=== PATIENT | male | born 1965 | race Caucasian/White ===

== ENCOUNTER 2020-07-02 21:02 | Emergency (ER) | payer OTHER, SELFPAY ==
--- NOTE | ~2020-07-02 | XR_ITS ---
EXAMINATION: XR CHEST CLINICAL INFORMATION: Shortness of breath COMPARISON: 08/28/2019 TECHNIQUE: Frontal view of the chest was obtained. FINDINGS: Normal symmetric lung volumes. No parenchymal consolidation. No pleural effusion. No pneumothorax. Cardiomediastinal silhouette and pulmonary vascularity are within normal limits. No acute osseous abnormalities. XR/XR chest 1V IMPRESSION: Unremarkable examination.
[2020-07-02 21:13] VITALS: BP 146/106; PULSE 73; RESP 16; TEMP 36.8; O2SAT 97; BMI 32.4
--- NOTE | 2020-07-02 21:25 | ECG_ITS ---
Test Reason : SHORTNESS OF BREATH Blood Pressure : / mmHG Vent. Rate : 064 BPM Atrial Rate : 064 BPM P-R Int : 144 ms QRS Dur : 078 ms QT Int : 436 ms P-R-T Axes : 039 -13 043 degrees QTc Int : 449 ms Normal sinus rhythm Normal ECG When compared with ECG of 28-AUG-2019 09:33, No significant change was found Referred By: Elif Llamas Electronically Signed By:ANJANA PRETTY
--- NOTE | 2020-07-02 21:27 | ED_ITS ---
HPI - SOB/Dyspnea General Chief Complaint: Dyspnea Stated Complaint: SOB Time Seen by Provider: 07/02/20 21:24 Source: patient Mode of arrival: ambulatory Limitations: no limitations History of Present Illness HPI Narrative: 54-year-old male walked in with shortness of breath for the past 2 days, symptoms started 2 days ago patient has been tested for COVID-19 result is unknown yet, symptoms is worsening when patient lay supine or with exertion, no other associated symptoms. No chest pain. Patient is a heavy smoker so every now and then he get those symptoms and diagnosed with bronchitis. Related Data Home Medications Medication Instructions Recorded Confirmed fluoxetine 20 mg PO BID 07/02/20 07/02/20 risperidone 3 mg PO DAILY 07/02/20 07/02/20 Previous Rx's Medication Instructions Recorded albuterol sulfate [ProAir HFA] 1 inh INHALATION QID PRN #8.5 g 07/03/20 azithromycin [Zithromax Z-Pineda] 250 mg PO DAILY 5 Days #5 tab 07/03/20 prednisone 20 mg PO BID #10 tab 07/03/20 Allergies Allergy/AdvReac Type Severity Reaction Status Date / Time No Known Allergies Allergy Verified 07/02/20 21:16 [No Known Allergies*] Review of Systems Review of Systems: All other systems are reviewed and are negative Constitutional: Reports as per HPI and Reports no additional constitutional complaints Eyes: Reports as per HPI and Reports no additional eye complaints Reports system reviewed and no additional complaints, except as documented Cardiovascular: Reports as per HPI and Reports no additional cardiovascular complaints Respiratory: Reports as per HPI and Reports no additional respiratory complaints Gastrointestinal: Reports as per HPI and Reports no additional gastrointestinal complaints Genitourinary: Reports no additional female genitourinary complaints Musculoskeletal: Reports no additional musculoskeletal complaints Skin/Breast: Reports system reviewed and no additional complaints, except as docu Psychiatric: Reports no additional psychiatric complaints Endocrine: Reports no additional endocrine complaints Hematologic/Lymphatic: Reports no additional hematologic/lymphatic complaints Allergic/Immunologic: Reports no additional allergic/immunologic complaints Reports system reviewed and no additional complaints, except as documented and Reports Abnormal speech present FOR[facility]LY [facility] Past Medical History Medical History Depression Social History Social History Alcohol intake: never Smoking Status: Current every day smoker Use of substances other than those prescribed or required for medical reasons: No Advance Directives: No Advance Directives Information Provided: No Physical Exam Vital Signs: Vital Signs: Last Vital Signs Temp 98.2 F 07/02/20 22:00 Pulse 75 07/03/20 00:00 Resp 18 07/03/20 00:00 BP 170/92 H 07/03/20 00:00 Pulse Ox 97 07/03/20 00:00 Body Mass Index 32.4 Vital signs have been reviewed as normal and appeared to be correct. Blood pressure in the high range. Heart rate normal. Respiration rate normal. Temperature normal. Oxygen saturation normal. Appearance: Alert. Oriented X3. No acute distress. Head: Normal external exam. Normocephalic. Atraumatic. No Call signs noted. No raccoon eyes noted Eyes: PERRLA. EOMI. Conjunctiva and sclera normal. Eyelids normal. ENT: TM's Normal. Pharynx normal. Uvula midline. Moist mucous membranes. No trismus noted. No drooling noted. No muffled voice noted. Neck: Normal inspection. Neck supple. FROM. No adenopathy. Thyroid Normal. No meningeal signs. No neck mass noted. CVS: Normal heart rate and rhythm. Heart sound normal. No murmurs noted. Pulses normal throughout. Respiratory: No respiratory distress. Painless inspiration. Breath sounds normal. Mild expiratory diffuse wheezes, no rales/rhonchi noted. Chest nontender. No accessory muscle usage noted or decreased air movement noted. Abdomen: Soft and nontender. Bowel sounds normal in all 4 quadrants. No distention noted. No organomegaly noted. No visible injury noted. Back: No CVA tenderness. Full range of motion noted. Skin: Skin warm and dry. Normal skin color. Normal skin turgor. No rashes/lesions/lacerations noted. Extremities: No lower extremity edema. Extremities exhibit normal range of motion. Extremities nontender. Neuro: Oriented X 3. No motor deficit. No sensory deficit. Reflexes normal. Course Course Course Narrative: Assessment and plan. 54-year-old male a smoker 1 pack a day presented with difficulty breathing only a nighttime, his exam revealed very mild wheezing, otherwise chest x-rays negative, COVID screening is negative, cardiac workup was negative . Patient was educated about smoking cessation, will prescribe bronchodilator/Z- Pineda/prednisone. MDM - SOB/Dyspnea Lab Data Attestation: I reviewed the patient's lab results. Result diagrams: 07/02/20 23:25 07/02/20 23:25 Labs: Lab Results 07/02/20 07/02/20 07/02/20 Range/Units 23:25 23:25 23:25 WBC 11.4 H (4.8-10.8) X10*3/uL RBC 4.81 (4.60-5.80) X10*6/uL Hgb 15.4 (14.0-18.0) g/dl Hct 44.8 (42-52) % MCV 93.1 (80-98) fL MCH 32.0 (27.0-33.0) pg MCHC 34.4 (31.0-36.0) g/dl RDW 13.1 (11.0-16.0) % Plt Count 346 (160-400) X10*3/uL MPV 9.8 (9.4-12.4) fL Immature Gran % (Auto) 0.7 H (0.0-0.4) % Neut % (Auto) 72.7 (45-73) % Lymph % (Auto) 16.6 L (20-40) % Whitley % (Auto) 7.5 (2-11) % Eos % (Auto) 1.7 (0-4) % Baso % (Auto) 0.8 (0-2) % Lymph # (Auto) 1.9 (1.2-4.9) X10*3/uL Whitley # (Auto) 0.9 (0.1-1.2) X10*3/uL Eos # (Auto) 0.2 (0.0-0.4) X10*3/uL Baso # (Auto) 0.1 (0.0-0.2) X10*3/uL Abs Immat Gran (auto) 0.08 H (0.00-0.03) X10*3/uL Absolute Neuts (auto) 8.3 (2.0-8.3) X10*3/uL Absolute Nucleated RBC 0.000 (0.0-0.012) X10*3/uL Nucleated RBC % (auto) 0.0 (0.0-0.2) /100WBC Sodium 133 L (135-145) mmol/L Potassium 4.3 (3.3-5.1) mmol/L Chloride 98 (96-108) mmol/L Carbon Dioxide 23 (22-29) mmol/L Anion Gap 16 (12-20) BUN 9 (9-16) mg/dL Creatinine 0.90 (0.5-1.4) mg/dL Estim Creat Clear Calc 101.4 Estimated GFR > 60 Random Glucose 92 (60-115) mg/dL Calcium 9.3 (8.4-10.2) mg/dL Troponin I High Sens 6.3 (<3.5-35.0) ng/L B-Natriuretic Peptide 99 (<100) pg/mL Lipase 37 (8-78) U/L COVID-19 ([facility]) (Negative) COVID-19 Clin Com 07/02/20 Range/Units 23:25 WBC (4.8-10.8) X10*3/uL RBC (4.60-5.80) X10*6/uL Hgb (14.0-18.0) g/dl Hct (42-52) % MCV (80-98) fL MCH (27.0-33.0) pg MCHC (31.0-36.0) g/dl RDW (11.0-16.0) % Plt Count (160-400) X10*3/uL MPV (9.4-12.4) fL Immature Gran % (Auto) (0.0-0.4) % Neut % (Auto) (45-73) % Lymph % (Auto) (20-40) % Whitley % (Auto) (2-11) % Eos % (Auto) (0-4) % Baso % (Auto) (0-2) % Lymph # (Auto) (1.2-4.9) X10*3/uL Whitley # (Auto) (0.1-1.2) X10*3/uL Eos # (Auto) (0.0-0.4) X10*3/uL Baso # (Auto) (0.0-0.2) X10*3/uL Abs Immat Gran (auto) (0.00-0.03) X10*3/uL Absolute Neuts (auto) (2.0-8.3) X10*3/uL Absolute Nucleated RBC (0.0-0.012) X10*3/uL Nucleated RBC % (auto) (0.0-0.2) /100WBC Sodium (135-145) mmol/L Potassium (3.3-5.1) mmol/L Chloride (96-108) mmol/L Carbon Dioxide (22-29) mmol/L Anion Gap (12-20) BUN (9-16) mg/dL Creatinine (0.5-1.4) mg/dL Estim Creat Clear Calc Estimated GFR Random Glucose (60-115) mg/dL Calcium (8.4-10.2) mg/dL Troponin I High Sens (<3.5-35.0) ng/L B-Natriuretic Peptide (<100) pg/mL Lipase (8-78) U/L COVID-19 ([facility]TA) Negative (Negative) COVID-19 Clin Com See Note Imaging Data Chest x-ray: Radiologist's impression: Unremarkable examination. ECG Data Interpretation: Normal sinus rhythm at 65 beats per minute, left axis deviation, normal intervals, no ST-T changes. Discharge Plan Discharge Clinical Impression: Acute bronchitis Qualifiers: Bronchitis organism: unspecified organism Qualified Code(s): J20.9 - Acute bronchitis, unspecified Patient Disposition: Home, Self-Care Instructions: Acute Bronchitis (ED) Prescriptions: New azithromycin [Zithromax Z-Pineda] 250 mg tablet 250 mg PO DAILY 5 Days Qty: 5 RF: 0 prednisone 20 mg tablet 20 mg PO BID Qty: 10 RF: 0 albuterol sulfate [ProAir HFA] 90 mcg/actuation HFA aerosol inhaler 1 inh inhalation QID PRN (Reason: shortness of breath or wheezing) Qty: 8.5 RF: 0 No Action risperidone 3 mg tablet 3 mg PO DAILY RF: 0 fluoxetine 20 mg capsule 20 mg PO BID RF: 0 Referrals: Saray Omalley NP [Primary Care Provider] - 2 days
[2020-07-02 22:00] VITALS: BP 169/109; PULSE 72; RESP 18; TEMP 36.8; O2SAT 93
[2020-07-02 22:57] VITALS: BP 172/98; PULSE 74; RESP 18; O2SAT 97
[2020-07-02 23:49] LABS: MANUAL DIFF FLAG NO
[2020-07-02 23:53] LABS: Basophils Absolute Auto 0.1 X10*3/uL (0.0-0.2); Basophils Percent Auto 0.8 % (0-2); Eosinophils Absolute Auto 0.2 X10*3/uL (0.0-0.4); Eosinophils Percent Auto 1.7 % (0-4); Hematocrit 44.8 % (42-52); Hemoglobin 15.4 g/dl (14.0-18.0); Imm Gran Abs Auto 0.08 X10*3/uL (0.00-0.03); Imm Gran Pct Auto 0.7 % (0.0-0.4); Lymphocytes Absolute Auto 1.9 X10*3/uL (1.2-4.9); Lymphocytes Percent Auto 16.6 % (20-40); Mean Corpuscular HGB Conc 34.4 g/dl (31.0-36.0); Mean Corpuscular Volume 93.1 fL (80-98); Mean Platelet Volume 9.8 fL (9.4-12.4); Monocytes Absolute Auto 0.9 X10*3/uL (0.1-1.2); Monocytes Percent Auto 7.5 % (2-11); Neutrophils Absolute Auto 8.3 X10*3/uL (2.0-8.3); Neutrophils Percent Auto 72.7 % (45-73); Platelet Count 346 X10*3/uL (160-400); Red Blood Count 4.81 X10*6/uL (4.60-5.80); Red Cell Distribution Width 13.1 % (11.0-16.0); White Blood Count 11.4 X10*3/uL (4.8-10.8)
[2020-07-03] VITALS: BP 170/92; PULSE 75; RESP 18; O2SAT 97
[2020-07-03 00:08] LABS: COVID-19 Test Negative (Negative); IDNOW Serial# 9DD0AD1C
[2020-07-03 00:14] LABS: Anion Gap 16 (12-20); Blood Urea Nitrogen 9 mg/dL (9-16); Calcium 9.3 mg/dL (8.4-10.2); Carbon Dioxide 23 mmol/L (22-29); Chloride 98 mmol/L (96-108); Creatinine Clr Calc Pharmacy 101.4; Estimated Glomerular Filt Rate > 60; Glucose Random 92 mg/dL (60-115); Lipase 37 U/L (8-78); Potassium 4.3 mmol/L (3.3-5.1); Sodium 133 mmol/L (135-145)
[2020-07-03 00:20] LABS: B Type Natriuretic Peptide 99 pg/mL (<100); Troponin-I High Sensitivity 6.3 ng/L (<3.5-35.0)
== END 2020-07-03 00:49 | disposition home or self-care (01) ==
PROVIDERS: Emergency Provider Emergency Medicine; PCP Nurse Practitioner Family
DX: J20.9 Acute bronchitis, unspecified (principal); R06.00 Dyspnea, unspecified; Z20.822 Contact with and (suspected) exposure to COVID-19; F17.210 Nicotine dependence, cigarettes, uncomplicated; Z71.6 Tobacco abuse counseling
CPT/HCPCS: 36415; 71045; 80048; 83690; 83880; 84484; 85025; 87635; 93005; 99283; 99284

== ENCOUNTER 2021-05-24 12:35 | Emergency (ER) | payer OTHER, SELFPAY ==
--- NOTE | ~2021-05-24 | XR_ITS ---
EXAMINATION: XR RIBS, RIGHT CLINICAL INFORMATION: Pain COMPARISON: No prior exam available. TECHNIQUE: Chest frontal, 3 oblique views right ribs FINDINGS: RIBS: Mildly displaced right eighth rib fracture. LUNGS AND OLINDA: Both lungs are clear. PLEURA: Normal. Costophrenic angles are sharp, no pneumothorax. HEART: The heart is normal in size. MEDIASTINUM: The mediastinum is within normal limits.. XR/XR ribs RT min 3V w CXR1V IMPRESSION: 1. Mildly displaced right posterior lateral eighth rib fracture. 2. No pneumothorax.
[2021-05-24 14:00] VITALS: BP 183/106; PULSE 90; RESP 18; TEMP 36.4; O2SAT 96; BMI 38.7
--- NOTE | 2021-05-24 14:08 | ED.BACK ---
HPI - Back Pain/Injury General Chief Complaint: Back Pain/Injury Stated Complaint: r side rib pain Time Seen by Provider: 05/24/21 14:06 Source: patient Mode of arrival: ambulatory Limitations: no limitations History of Present Illness HPI Narrative: 55-year-old male presents for 10 days of right lateral chest wall pain. Patient states 10 days ago he was twisting his right arm around to wipe his butt while stooling, and he got a sharp pain under his right arm. States the pain was getting a little better, but today when he had a cough, the pain became much worse. The cough he had was only a few times, he is not sick, no recurrent cough. No chest pain, no shortness of breath. This pain is much worse with movement. No syncope, no fever, no weakness, no numbness, no trouble walking, no incontinence of bowel or bladder, no reduced sensation lower extremities, no saddle paresthesias, no abdominal pain, no nausea vomiting. MD elicited complaint: other (chest wall pain) Pertinent past history: recent trauma Onset (ago): day(s) (10) Timing: progressively worsening Severity: moderate Quality: aching Radiation: none Exacerbating factors: movement Relieving factors: immobilization Context: turning/twisting Associated symptoms: denies other symptoms Work related injury: No Related Data Home Medications Medication Instructions Recorded Confirmed fluoxetine 20 mg capsule 20 mg PO BID 07/02/20 07/02/20 risperidone 3 mg tablet 3 mg PO DAILY 07/02/20 07/02/20 Previous Rx's Medication Instructions Recorded albuterol sulfate 90 mcg/actuation 1 inh INHALATION QID PRN #8.5 g 07/03/20 aerosol inhaler (ProAir HFA) azithromycin 250 mg tablet 250 mg PO DAILY 5 Days #5 tab 07/03/20 (Zithromax Z-Pineda) prednisone 20 mg tablet 20 mg PO BID #10 tab 07/03/20 ibuprofen 800 mg tablet 800 mg PO Q8H 30 Days #90 tab 05/24/21 Allergies Allergy/AdvReac Type Severity Reaction Status Date / Time No Known Allergies Allergy Verified 07/02/20 21:16 [No Known Allergies*] Review of Systems Constitutional: Constitutional: Denies body ache(s), Denies chills, Denies fatigue, Denies fever(s), Denies headache(s), Denies malaise and Denies weakness Eyes: Eyes: Denies diplopia ENT: Denies vertigo, Denies dizziness, Denies otalgia, Denies headache(s), Denies mouth pain, Denies neck pain, Denies post nasal drip, Denies sinus pain, Denies sinus pressure, Denies sore throat and Denies throat swelling Cardiovascular: Cardiovascular: Denies chest pain, Denies syncope, Denies leg edema, Denies lightheadedness, Denies Loss of Consciousness, Denies palpitations and Denies dyspnea Respiratory: Respiratory: Denies chest congestion, Denies cough and Denies dyspnea Gastrointestinal: Gastrointestinal: Denies abdominal pain, Denies hematochezia, Denies constipation, Denies diarrhea and Denies vomiting Musculoskeletal: Musculoskeletal: Denies muscle weakness, Denies neck pain, Denies numbness, Denies radiating pain into limb and Denies tingling Comments: Chest wall pain under her right axilla Integumentary/Breasts: Skin/Breast: Denies erythema and Denies rash Neurologic: Denies confusion, Denies vertigo, Denies dizziness, Denies syncope, Denies headache(s), Denies numbness, Denies tingling and Denies weakness Psychiatric: Psychiatric: Denies anxiety, Denies confusion and Denies depression Endocrine: Endocrine: Denies fatigue and Denies palpitations Allergic/Immunologic: Allergic/Immunologic: Denies throat swelling PMFSH Past Medical History Medical History Depression Social History Social History Alcohol intake: never Patient Tobacco Use Status: Never used Tobacco Use of substances other than those prescribed or required for medical reasons: No Advance Directives: No Advance Directives Information Provided: No Physical Exam Vital Signs: Vital Signs: Last Vital Signs Temp 97.6 F 05/24/21 14:00 Pulse 90 05/24/21 14:00 Resp 18 05/24/21 14:00 BP 183/106 H 05/24/21 14:00 Pulse Ox 96 05/24/21 14:00 BMI result Body Mass Index 38.7 Const: General: No confusion Nutritional Appearance: well nourished Orientation/consciousness: No confusion Limitations: no limitations Eyes: Conjunctivae: conjunctivae normal Pupils: Equal, round and reactive pupils present EOM: EOMs intact bilaterally Neck: Neck: Yes full ROM, Yes no lymphadenopathy and Yes supple Resp: Effort & Inspection: normal respiratory effort and able to speak in complete sentences Auscultation: clear to auscultation bilaterally, no crackles, no rales, no rhonchi and no wheezes Cardio: Rate: regular rate Rhythm: regular rhythm Heart sounds: S1 normal heart sound present and S2 normal heart sound present : General: Yes no CVA tenderness Back/Spine/Pelvis: Back: no CVA tenderness Cervical Spine: normal cervical lordosis, cervical ROM normal, No Cervical spine tenderness and No step off deformity Thoracic/Lumbar Spine: pain with thoraco-lumbar ROM, No paraspinal muscle tenderness, thoraco-lumbar ROM limited, No thoraco-lumbar spasm, No thoracic spinal tenderness, No lumbar spinal tenderness and No straight leg raise positive Pelvis: no pain with anterior-posterior compression Skin: General skin exam: no rashes or lesions noted Neuro: General: No confusion Cranial nerves: Yes Equal, round and reactive pupils present Extrem: General: Yes normal to inspection and Yes full ROM Psych: Appearance: grossly normal Affect: normal affect Attitude: cooperative Thought process: Normal thought process present Course Course Course Narrative: 55-year-old male presents with 10 days of right chest wall pain. Patient states 10 days ago he was twisting and got home under his right arm. Pain was resolving until earlier today, when he coughed, and now has sharp pain under right arm that is worse with movement. On exam, patient is hypertensive, vitals otherwise stable, I cannot reproduce tenderness by palpation. Will get x-ray of chest and ribs, Toradol, Flexeril Reevaluation(s) Reevaluation #1: XR/XR ribs RT min 3V w CXR1V IMPRESSION: 1. Mildly displaced right posterior lateral eighth rib fracture. ? 2. No pneumothorax. Provided incentive spirometer, counseled that is frequent use, discuss the rib fractures can take 6-8 weeks to heal, discussed importance of returning if patient had chest pain or shortness of breath, Discharge Plan Discharge Clinical Impression: Closed rib fracture Qualifiers: Encounter type: initial encounter Rib fracture type: single rib Laterality: right Qualified Code(s): S22.31XA - Fracture of one rib, right side, initial encounter for closed fracture Patient Disposition: Home, Self-Care Instructions: How to Use an Incentive Spirometer (ED), Rib Fracture (ED) Additional Instructions: Call your primary care provider Wednesday morning for follow-up appointment from today's emergency room visit Please use your incentive spirometer, use it 4 times an hour while you are awake for the next week. Please alternate Tylenol and ibuprofen for pain. Take 1 or the other every 4 hours. For example, at midnight take 1000 mg of Tylenol, then at 4:00 a.m. take 800 mg ibuprofen, at 8:00 a.m. take 1000 mg of Tylenol, at noon take 800 mg of ibuprofen, at 4:00 p.m. take 1000 mg of Tylenol, at 8:00 p.m. take 800 mg of ibuprofen. Do not exceed 3000 mg of Tylenol in 24 hours. This method is proven to be as effective as an opioid for pain control. I have prescribed ibuprofen to pharmacy I have provided you with a work now If you have shortness of breath, chest pain, or worsening rib pain, please return to the emergency room Prescriptions: New ibuprofen 800 mg tablet 800 mg PO Q8H 30 Days Qty: 90 RF: 0 No Action risperidone 3 mg tablet 3 mg PO DAILY RF: 0 fluoxetine 20 mg capsule 20 mg PO BID RF: 0 azithromycin [Zithromax Z-Pineda] 250 mg tablet 250 mg PO DAILY 5 Days Qty: 5 RF: 0 prednisone 20 mg tablet 20 mg PO BID Qty: 10 RF: 0 albuterol sulfate [ProAir HFA] 90 mcg/actuation HFA aerosol inhaler 1 inh inhalation QID PRN (Reason: shortness of breath or wheezing) Qty: 8.5 RF: 0 Stand Alone Forms: Work/School Release
[2021-05-24] MEDS: Ketorolac Tromethamine 30 MG/ML VIAL IM (14:39)
[2021-05-24] MEDS: Cyclobenzaprine HCl 10 MG TABLET PO (14:39)
== END 2021-05-24 15:53 | disposition home or self-care (01) ==
PROVIDERS: Emergency Provider Emergency Medicine; PCP Nurse Practitioner Family
DX: S22.31XA Fracture of one rib, right side, initial encounter for closed fracture (principal); R07.81 Pleurodynia; X58.XXXA Exposure to other specified factors, initial encounter; Y93.9 Activity, unspecified; Y92.9 Unspecified place or not applicable; Y99.9 Unspecified external cause status; Z79.899 Other long term (current) drug therapy
CPT/HCPCS: 71101; 96372; 99284; J1885

== ENCOUNTER 2022-10-12 07:44 | Outpatient (REF) | payer BC, MEDICAID, SELFPAY ==
[2022-10-12 11:30] LABS: MANUAL DIFF FLAG NO
[2022-10-12 11:46] LABS: Basophils Absolute Auto 0.1 X10*3/uL (0.0-0.2); Basophils Percent Auto 0.8 % (0-2); Eosinophils Absolute Auto 0.4 X10*3/uL (0.0-0.4); Eosinophils Percent Auto 3.7 % (0-4); Hematocrit 42.6 % (42.0-52.0); Hemoglobin 14.2 g/dl (14.0-18.0); Imm Gran Abs Auto 0.05 X10*3/uL (0.00-0.03); Imm Gran Pct Auto 0.5 % (0.0-0.4); Lymphocytes Absolute Auto 1.9 X10*3/uL (1.2-4.9); Lymphocytes Percent Auto 19.4 % (20-40); Mean Corpuscular HGB Conc 33.3 g/dl (31.0-36.0); Mean Corpuscular Hemoglobin 31.5 pg (27.0-33.0); Mean Corpuscular Volume 94.5 fL (80.0-98.0); Mean Platelet Volume 11.4 fL (9.4-12.4); Monocytes Absolute Auto 0.8 X10*3/uL (0.1-1.2); Monocytes Percent Auto 8.4 % (2-11); Neutrophils Absolute Auto 6.5 x10*3/uL (2.0-8.3); Neutrophils Percent Auto 67.2 % (45-73); Platelet Count 231 X10*3/uL (160-400); Red Blood Count 4.51 X10*6/uL (4.60-5.80); Red Cell Distribution Width 11.9 % (11.0-16.0); White Blood Count 9.6 X10*3/uL (4.8-10.8)
[2022-10-12 12:06] LABS: Alanine Aminotransferase 30 U/L (0-40); Alkaline Phosphatase 53 U/L (39-117); Anion Gap 14 (12-20); Aspartate Amino Transferase 22 U/L (5-37); Bilirubin Total 0.6 mg/dL (0.0-1.0); Blood Urea Nitrogen 17 mg/dL (9-16); Calcium 9.8 mg/dL (8.4-10.2); Carbon Dioxide 25 mmol/L (22-29); Chloride 104 mmol/L (96-108); Cholesterol 213 mg/dL; Estimated Glomerular Filt Rate > 60; Glucose Fasting 94 mg/dL (60-99); HDL Cholesterol 43 mg/dL; LDL Cholesterol Calculated 139 mg/dl; Potassium 4.5 mmol/L (3.3-5.1); Sodium 138 mmol/L (135-145); Total Protein 6.9 g/dL (6.5-8.0); Triglycerides 157 mg/dL
[2022-10-12 12:30] LABS: TSH reflex Free T4 1.23 uIU/mL (0.32-4.0); Vitamin B12 315 pg/mL (200-900)
[2022-10-18 15:49] LABS: Vitamin D 25-OH, D2 <4 ng/mL; Vitamin D 25-OH, D3 20 ng/mL; Vitamin D 25-OH, Total 20 ng/mL (30-100)
== END 2022-10-12 07:45 | disposition home or self-care (01) ==
LOC: HO.HMGCLDS 07:44
PROVIDERS: PCP Internal Medicine; Visit Provider Internal Medicine
DX: F42.9 Obsessive-compulsive disorder, unspecified (principal); F22 Delusional disorders; E66.09 Other obesity due to excess calories; F10.10 Alcohol abuse, uncomplicated; E53.8 Deficiency of other specified B group vitamins; Z72.0 Tobacco use; Z76.89 Persons encountering health services in other specified circumstances
CPT/HCPCS: 36415; 80053; 80061; 82306; 82607; 84443; 85025

== ENCOUNTER 2023-01-08 09:32 | Outpatient (AMB) | payer BC, SELFPAY ==
--- NOTE | 2023-01-08 09:39 | A.OFFPC_ITS ---
Vital Signs 01/08/23 09:40 Height 5 ft 6 in Weight 251 lb 2 oz BMI 40.5 BP 130/78 Blood Pressure Location Lt brachial Position Sitting Pulse 85 Pulse Source Pulse Oximeter Pulse Oximetry (%) 95 Oxygen Delivery Method Room Air Intake Visit Reasons: 3 month follow up Allergies No Known Allergies [No Known Allergies*] Allergy (Verified 01/08/23 09:40) Medication List - Last Reconciled 01/08/23 by Jai Beltran MD fluoxetine 20 mg PO BID 90 days risperidone 3 mg PO DAILY Tobacco use date assessed: 01/08/23 Dental Screening Dental Screen Date: 01/08/23 Did you have a dental visit in the last 12 months?: No Did you have a dental problem in the last 6 months where you did not have access to dental care?: No Was dental information given to patient?: No HPI 3 month follow up HPI Details Patient is 87-year-old gentleman came in today for his regular follow- up appointment Patient have a psychiatric illness he is now seeing a psych med prescriber and taking fluoxetine 20 mg b.i.d. and risperidone 3 mg through them. Last time he had labs done his vitamin-D level was low I have sent supplement patient is to start taking 1 daily for 6 months. He said that he has done colo guard test but I could not find the report in the chart we will look for that. Continued to smoke 2 pack per day patient says that his previous primary care has tried to help him but he just done 1 a stop at this time He has stop drinking alcohol but now he is drinking a lot of coffee. Patient is concerned about his weight and he is eating habits. I will be working appointment with a dietitian so we can provide him with the proper information. He will return in 6 month to have a follow-up on tobacco and weight. [facility] Medical History Depression Social History Housing: Condominium Alcohol intake: never Patient Tobacco Use Status: Current everyday Tobacco user Cigarette Packs Per Day: 1 Cigarettes Per Day: 20 e-Cigarette/Vaping Use: Never Used service: No Current occupational status: employed Current occupation: [employer] Cognitive needs: No Hearing needs: No Vision needs: No Questionnaire PHQ-9 Over the last 2 weeks, how often have you been bothered by any of the following problems? 1. Little interest or pleasure in doing things: not at all 2. Feeling down, depressed, or hopeless: not at all 3. Trouble falling or staying asleep, or sleeping too much: several days 4. Feeling tired or having little energy: not at all 5. Poor appetite or overeating: nearly every day 6. Feeling bad about yourself - or that you are a failure or have let yourself or your family down: not at all 7. Trouble concentrating on things, such as reading the newspaper or watching television: not at all 8. Moving or speaking so slowly that other people could have noticed. Or the opposite - being so fidgety or restless that you have been moving around a lot more than usual: not at all 9. Thoughts that you would be better off or of hurting yourself in some way: not at all Total score: 4 Depression Screening Interpretation: Negative 43562 - PHQ-9 Billing: Yes Source: Developed by Drs. Miguel Luis, Angelica Mark, Du Villa and colleagues, with an educational mirlande from [employer]. Thrive Questionnaire Date Thrive assessed: 01/08/23 I am a: Patient What is your living situation today?: I have a steady place to live Within the past 12 months, did the food you bought not last and you didn't have the money to get more?: Never true Within the past 12 months, did you worry whether your food would run out before you got money to buy more?: Never true Do you have trouble paying for medicines?: No Do you have trouble getting transportation to medical appointments?: No Do you have trouble paying your heating and electricity bill?: No Do you have trouble taking care of your child, family member or friend?: No Do you have trouble with day-to-day activities such as bathing, preparing meals, shopping, managing finances, etc.?: Yes Are you currently unemployed and looking for a job?: No Are you interested in more education?: No AUDIT C Alcohol Use Questionnaire (AUDIT-C) 1. How often do you have a drink containing alcohol?: Never 3. How often do you have six or more drinks on one occasion?: Never Total Score: 0 Score Reviewed/Action Taken: Yes MIKY-7 AMB Questionnaire MIKY-7 Date MIKY - 7 assessed: 01/08/23 Feeling nervous, anxious, or on edge: 0 = Not at all Not being able to stop or control worryin = Not at all Worrying too much about different things: 0 = Not at all Trouble relaxin = Several days Being so restless that it is hard to sit still: 0 = Not at all Becoming easily annoyed or irritable: 0 = Not at all Feeling afraid as if something awful might happen: 0 = Not at all Total MIKY-7 score (0-4 normal; 5-9 mild; 10-14 moderate; 15-21 severe): 1 Source: Developed by Drs. Miguel Luis, Angelica Mark, Du Villa and colleagues, with an educational mirlande from [employer]. MIKY-7 Assessment Billing MIKY-7 Assessment Tool: MIKY-7 Assessment 68867 Review of Systems Const Denies chills and Denies fever(s) ENT Denies epistaxis and Denies nasal discharge Card Denies chest pain Resp Denies chest congestion, Denies cough and Denies hemoptysis GI Denies diarrhea and Denies nausea Skin/Breast Denies rash Neuro Reports no additional complaints Psych Reports no additional complaints Endo Reports no additional complaints Physical exam (Primary Care) Vital Signs: Last Vital Signs Pulse 85 01/08/23 09:40 BP 130/78 01/08/23 09:40 Pulse Ox 95 01/08/23 09:40 Oxygen Delivery Method Room Air 01/08/23 09:40 BMI result Body Mass Index 40.5 Tobacco/Smoking Status: Tobacco use Status Tobacco use date assessed 01/08/23 01/08/23 09:41 Patient Tobacco Use Status Current everyday Tobacco 01/08/23 09:41 e-Cigarette/Vaping Use Never Used 01/08/23 09:41 PHQ-9: PHQ-9 Score PHQ-9: Total score 4 01/08/23 09:59 Depression Screening Interpretation: Negative Thrive Assessment: Date of Thrive Assessment Date Thrive assessed 01/08/23 01/08/23 09:59 Const General: cooperative, comfortable and no acute distress Orientation/consciousness: patient oriented x3 HENMT Head: Yes normocephalic Eyes General: appearance normal, both eyes and all related structures Neck Neck: Yes supple Resp Effort & Inspection: normal respiratory effort, no cough and no stridor Cardio Rhythm: regular rhythm Heart sounds: S1 normal heart sound present and S2 normal heart sound present Skin General skin exam: turgor normal Neuro General: patient oriented x3, tone normal and moves all extremities Extrem Right lower extremity: no edema Left lower extremity: no edema Assessment and Plan Assessment & Plan (1) Morbid obesity due to excess calories: Code(s): E66.01 - Morbid (severe) obesity due to excess calories (2) Tobacco abuse: Code(s): Z72.0 - Tobacco use (3) OCD (obsessive compulsive disorder): Code(s): F42.9 - Obsessive-compulsive disorder, unspecified (4) Paranoid disorder: Code(s): F22 - Delusional disorders (5) Vitamin D deficiency: Code(s): E55.9 - Vitamin D deficiency, unspecified Plan Patient is 87-year-old gentleman came in today for his regular follow-up appointment Patient have a psychiatric illness he is now seeing a psych med prescriber and t aking fluoxetine 20 mg b.i.d. and risperidone 3 mg through them. Last time he had labs done his vitamin-D level was low I have sent supplement patient is to start taking 1 daily for 6 months. He said that he has done colo guard test but I could not find the report in the chart we will look for that. Continued to smoke 2 pack per day patient says that his previous primary care has tried to help him but he just done 1 a stop at this time He has stop drinking alcohol but now he is drinking a lot of coffee. Patient is concerned about his weight and he is eating habits. I will be working appointment with a dietitian so we can provide him with the proper information. He will return in 6 month to have a follow-up on tobacco and weight. Medications: New cholecalciferol (vitamin D3) 25 mcg PO DAILY 90 caps 0RF 90 days Coding Level of Care Code Est Pt Level 3 (90139) Diagnoses Morbid obesity due to excess calories E66.01 Tobacco abuse Z72.0 OCD (obsessive compulsive disorder) F42.9 Paranoid disorder F22 Vitamin D deficiency E55.9 Additional Codes MIKY-7 Assessment Billing - MIKY-7 Assessment Tool: MIKY-7 Assessment 00462 ([id number])
[2023-01-08 09:40] VITALS: BP 130/78; PULSE 85; O2SAT 95; BMI 40.5
== END 2023-01-08 09:50 | disposition home or self-care (01) ==
PROVIDERS: Visit Provider Internal Medicine
DX: F42.9 Obsessive-compulsive disorder, unspecified (principal); E66.01 Morbid (severe) obesity due to excess calories; F22 Delusional disorders; Z68.41 Body mass index [BMI] 40.0-44.9, adult; E55.9 Vitamin D deficiency, unspecified; Z72.0 Tobacco use
CPT/HCPCS: 99213

== ENCOUNTER 2023-06-04 08:27 | Outpatient (AMB) | payer BC, SELFPAY ==
[2023-06-04 08:29] VITALS: BP 128/80; PULSE 80; O2SAT 98; BMI 37.9
--- NOTE | 2023-06-04 08:29 | A.OFFPC_ITS ---
Vital Signs 06/04/23 08:29 Height 5 ft 6 in Weight 235 lb BMI 37.9 BP 128/80 Blood Pressure Location Lt brachial Position Sitting Pulse 80 Pulse Source Pulse Oximeter Pulse Oximetry (%) 98 Oxygen Delivery Method Room Air Intake Visit Reasons: concerns of athletes foot Allergies No Known Allergies [No Known Allergies*] Allergy (Verified 06/04/23 08:30) Medication List - Last Reconciled 06/04/23 by Jai Beltran MD cholecalciferol (vitamin D3) 25 mcg PO DAILY 90 days fluoxetine 20 mg PO BID 90 days risperidone 3 mg PO DAILY Tobacco use date assessed: 06/04/23 Dental Screening Dental Screen Date: 06/04/23 Did you have a dental visit in the last 12 months?: No Did you have a dental problem in the last 6 months where you did not have access to dental care?: No Was dental information given to patient?: Patient has dentist HPI concerns of athletes foot HPI Details Patient is a 57-year-old gentleman with a history of delusional disorder, obesity with BMI of 37.9 Came in today to be evaluated for infection on his feet Patient says that it has gotten worse for the past 7 days On examination it seems as if patient have chronic tinea pedis He has developed erythema redness and excoriation of skin I am treating him with Augmentin b.i.d. for 7 days And terbinafine 250 mg once a day for 7 days Patient is to return in 7 days for re-evaluation [facility] Medical History Depression Social History Housing: Condominium Alcohol intake: never Patient Tobacco Use Status: Current everyday Tobacco user Cigarette Packs Per Day: 1 Cigarettes Per Day: 20 e-Cigarette/Vaping Use: Never Used service: No Current occupational status: employed Current occupation: [employer] Cognitive needs: No Hearing needs: No Vision needs: No Questionnaire PHQ-9 Over the last 2 weeks, how often have you been bothered by any of the following problems? 1. Little interest or pleasure in doing things: not at all 2. Feeling down, depressed, or hopeless: not at all 3. Trouble falling or staying asleep, or sleeping too much: not at all 4. Feeling tired or having little energy: not at all 5. Poor appetite or overeating: not at all 6. Feeling bad about yourself - or that you are a failure or have let yourself or your family down: not at all 7. Trouble concentrating on things, such as reading the newspaper or watching television: not at all 9. Thoughts that you would be better off or of hurting yourself in some way: not at all Depression Screening Interpretation: Negative Depression Screening Done: Yes 28921 - PHQ-9 Billing: Yes Source: Developed by Drs. Miguel Luis, Angelica Mark, Du Villa and colleagues, with an educational mirlande from [employer] Thrive Questionnaire Date Thrive assessed: 06/04/23 I am a: Patient What is your living situation today?: I have a steady place to live Within the past 12 months, did the food you bought not last and you didn't have the money to get more?: Sometimes True Within the past 12 months, did you worry whether your food would run out before you got money to buy more?: Never true Do you have trouble paying for medicines?: Yes Do you have trouble getting transportation to medical appointments?: No Do you have trouble paying your heating and electricity bill?: No Do you have trouble taking care of your child, family member or friend?: No Do you have trouble with day-to-day activities such as bathing, preparing meals, shopping, managing finances, etc.?: No Are you currently unemployed and looking for a job?: No Are you interested in more education?: No Please select the resources that you would like help with: None Currently or been in a relationship where the following occur: no concerns reported AUDIT C Alcohol Use Questionnaire (AUDIT-C) 1. How often do you have a drink containing alcohol?: Monthly or less 2. How many drinks containing alcohol do you have on a typical day when you are drinking?: 1 or 2 3. How often do you have six or more drinks on one occasion?: Never Total Score: 1 Score Reviewed/Action Taken: Yes MIKY-7 AMB Questionnaire MIKY-7 Date MIKY - 7 assessed: 06/04/23 Feeling nervous, anxious, or on edge: 0 = Not at all Not being able to stop or control worryin = Not at all Worrying too much about different things: 0 = Not at all Trouble relaxin = Not at all Being so restless that it is hard to sit still: 0 = Not at all Becoming easily annoyed or irritable: 0 = Not at all Feeling afraid as if something awful might happen: 0 = Not at all Total MIKY-7 score (0-4 normal; 5-9 mild; 10-14 moderate; 15-21 severe): 0 Source: Developed by Drs. Miguel Luis, Angelica Mark, Du Villa and colleagues, with an educational mirlande from [employer] MIKY-7 Assessment Billing MIKY-7 Assessment Tool: MIKY-7 Assessment 94669 Review of Systems Const Denies chills and Denies fever(s) ENT Denies epistaxis and Denies nasal discharge Card Denies chest pain Resp Denies chest congestion, Denies cough and Denies hemoptysis GI Denies diarrhea and Denies nausea Skin/Breast Denies rash Neuro Reports no additional complaints Psych Reports no additional complaints Endo Reports no additional complaints Physical exam (Primary Care) Vital Signs: Last Vital Signs Pulse 80 06/04/23 08:29 BP 128/80 06/04/23 08:29 Pulse Ox 98 06/04/23 08:29 Oxygen Delivery Method Room Air 06/04/23 08:29 BMI result Body Mass Index 37.9 Tobacco/Smoking Status: Tobacco use Status Tobacco use date assessed 06/04/23 06/04/23 08:33 Patient Tobacco Use Status Current everyday Tobacco 06/04/23 08:33 e-Cigarette/Vaping Use Never Used 06/04/23 08:33 Depression Screening Interpretation: Negative Thrive Assessment: Date of Thrive Assessment Date Thrive assessed 06/04/23 06/04/23 09:04 Currently or been in a relationship where the following occur: no concerns reported Const General: cooperative, comfortable and no acute distress Orientation/consciousness: patient oriented x3 HENMT Head: Yes normocephalic Eyes General: appearance normal, both eyes and all related structures Neck Neck: Yes supple Resp Effort & Inspection: normal respiratory effort, no cough and no stridor Cardio Rhythm: regular rhythm Heart sounds: S1 normal heart sound present and S2 normal heart sound present Skin General skin exam: turgor normal Neuro General: patient oriented x3, tone normal and moves all extremities Extrem Other: Discolored deformed toenails both feet with extensive tenia pedis and erythema especially dorsum of both feet Assessment and Plan Assessment & Plan (1) Tinea pedis: Code(s): B35.3 - Tinea pedis Qualifiers: Laterality: bilateral Qualified Code(s): B35.3 - Tinea pedis (2) Cellulitis of both feet: Code(s): L03.115 - Cellulitis of right lower limb; L03.116 - Cellulitis of left lower limb (3) Obesity due to excess calories: Code(s): E66.09 - Other obesity due to excess calories Qualifiers: Body mass index: BMI 37.0-37.9 Obesity classification: adult class 2 (BMI 35 - 39.9) Serious obesity comorbidity presence: without serious comorbidity Qualified Code(s): E66.09 - Other obesity due to excess calories; Z68.37 - Body mass index [BMI] 37.0-37.9, adult (4) Paranoid disorder: Code(s): F22 - Delusional disorders (5) OCD (obsessive compulsive disorder): Code(s): F42.9 - Obsessive-compulsive disorder, unspecified Qualifiers: Obsessive-compulsive disorder type: unspecified Qualified Code(s): F42.9 - Obsessive-compulsive disorder, unspecified Plan Patient is a 57-year-old gentleman with a history of delusional disorder, obesity with BMI of 37.9 Came in today to be evaluated for infection on his feet Patient says that it has gotten worse for the past 7 days On examination it seems as if patient have chronic tinea pedis He has developed erythema redness and excoriation of skin I am treating him with Augmentin b.i.d. for 7 days And terbinafine 250 mg once a day for 7 days Patient is to return in 7 days for re-evaluation Medications: New terbinafine HCl 250 mg PO DAILY 7 tabs 0RF 7 days amoxicillin-pot clavulanate 875-125 mg 1 tab PO BID 14 tabs 0RF 7 days Coding Level of Care Code Est Pt Level 4 (18457) Diagnoses Tinea pedis of both feet B35.3 Laterality: bilateral Cellulitis of both feet L03.115; L03.116 Class 2 obesity due to excess calories without serious comorbidity with body mass index (BMI) of 37.0 to 37.9 in adult E66.09; Z68.37 Body mass index: BMI 37.0-37.9 Obesity classification: adult class 2 (BMI 35 - 39.9) Serious obesity comorbidity presence: without serious comorbidity Paranoid disorder F22 Obsessive-compulsive disorder, unspecified type F42.9 Obsessive-compulsive disorder type: unspecified Additional Codes MIKY-7 Assessment Billing - MIKY-7 Assessment Tool: MIKY-7 Assessment 48773 ([id number])
== END 2023-06-04 08:56 | disposition home or self-care (01) ==
PROVIDERS: PCP Internal Medicine; Visit Provider Internal Medicine
DX: B35.3 Tinea pedis (principal); L03.115 Cellulitis of right lower limb; F22 Delusional disorders; L03.116 Cellulitis of left lower limb; E66.09 Other obesity due to excess calories; Z68.37 Body mass index [BMI] 37.0-37.9, adult; F42.9 Obsessive-compulsive disorder, unspecified
CPT/HCPCS: 99214

== ENCOUNTER 2023-06-09 12:53 | Outpatient (AMB) | payer BC, SELFPAY ==
[2023-06-09 12:59] VITALS: PULSE 91; O2SAT 96; BMI 37.8
--- NOTE | 2023-06-09 12:59 | A.OFFPC_ITS ---
Vital Signs 06/09/23 12:59 Height 5 ft 6 in Weight 234 lb 8 oz BMI 37.8 Pulse 91 Pulse Source Pulse Oximeter Pulse Oximetry (%) 96 Oxygen Delivery Method Room Air Intake Visit Reasons: 1 WK F/U concerns of athletes foot Allergies No Known Allergies [No Known Allergies*] Allergy (Verified 06/09/23 12:59) Medication List - Last Reconciled 06/09/23 by Jai Beltran MD amoxicillin-pot clavulanate 875-125 mg 1 tab PO BID 7 days cholecalciferol (vitamin D3) 25 mcg PO DAILY 90 days fluoxetine 20 mg PO BID 90 days risperidone 3 mg PO DAILY terbinafine HCl 250 mg PO DAILY 7 days Tobacco use date assessed: 06/09/23 Dental Screening Dental Screen Date: 06/09/23 Did you have a dental visit in the last 12 months?: No Did you have a dental problem in the last 6 months where you did not have access to dental care?: No Was dental information given to patient?: No HPI 1 WK F/U concerns of athletes foot HPI Details Patient is a 57-year-old gentleman came in today to be evaluated for cellulitis both feet and tinea pedis Patient was treated with Augmentin and terbinafine for 7 days His infection has improved, skin has dried out, however continued to have erythema Patient will need 10 more days of treatment at least. This time I have sent doxycycline and terbinafine Patient has developed itching at the end of the treatment, so I have refrain from sending Augmentin Follow-up 10 days [facility] Medical History Depression Social History Housing: Condominium Alcohol intake: never Patient Tobacco Use Status: Current everyday Tobacco user Cigarette Packs Per Day: 1 Cigarettes Per Day: 20 e-Cigarette/Vaping Use: Never Used service: No Current occupational status: employed Current occupation: [employer] Cognitive needs: No Hearing needs: No Vision needs: No Questionnaire PHQ-9 Over the last 2 weeks, how often have you been bothered by any of the following problems? Depression Screening Interpretation: Negative Depression Screening Done: Yes Source: Developed by Drs. Miguel Luis, Angelica B.WDu Mckenna and colleagues, with an educational mirlande from [employer]. Thrive Questionnaire Date Thrive assessed: 06/04/23 Currently or been in a relationship where the following occur: no concerns reported MIKY-7 AMB Questionnaire MIKY-7 Date MIKY - 7 assessed: 06/04/23 Source: Developed by Drs. Miguel Luis, Du Ramirez and colleagues, with an educational mirlande from [employer]. Review of Systems Const Denies chills and Denies fever(s) ENT Denies epistaxis and Denies nasal discharge Card Denies chest pain Resp Denies chest congestion, Denies cough and Denies hemoptysis GI Denies diarrhea and Denies nausea Skin/Breast Denies rash Neuro Reports no additional complaints Psych Reports no additional complaints Endo Reports no additional complaints Physical exam (Primary Care) Vital Signs: Last Vital Signs Pulse 91 06/09/23 12:59 Pulse Ox 96 06/09/23 12:59 Oxygen Delivery Method Room Air 06/09/23 12:59 BMI result Body Mass Index 37.8 Tobacco/Smoking Status: Tobacco use Status Tobacco use date assessed 06/09/23 06/09/23 13:01 Patient Tobacco Use Status Current everyday Tobacco 06/09/23 13:01 e-Cigarette/Vaping Use Never Used 06/09/23 13:01 Depression Screening Interpretation: Negative Thrive Assessment: Date of Thrive Assessment Date Thrive assessed 06/04/23 06/09/23 13:01 Currently or been in a relationship where the following occur: no concerns reported Const General: cooperative, comfortable and no acute distress Orientation/consciousness: patient oriented x3 [facility] Head: Yes normocephalic Eyes General: appearance normal, both eyes and all related structures Neck Neck: Yes supple Resp Effort & Inspection: normal respiratory effort, no cough and no stridor Cardio Rhythm: regular rhythm Heart sounds: S1 normal heart sound present and S2 normal heart sound present Skin General skin exam: turgor normal Neuro General: patient oriented x3, tone normal and moves all extremities Extrem Other: Discolored deformed toenails both feet with extensive tenia pedis and erythema especially dorsum of both feet Assessment and Plan Assessment & Plan (1) Tinea pedis: Code(s): B35.3 - Tinea pedis Qualifiers: Laterality: bilateral Qualified Code(s): B35.3 - Tinea pedis (2) Cellulitis of both feet: Code(s): L03.115 - Cellulitis of right lower limb; L03.116 - Cellulitis of left lower limb Plan Patient is a 57-year-old gentleman came in today to be evaluated for cellulitis both feet and tinea pedis Patient was treated with Augmentin and terbinafine for 7 days His infection has improved, skin has dried out, however continued to have erythema Patient will need 10 more days of treatment at least. This time I have sent doxycycline and terbinafine Patient has developed itching at the end of the treatment, so I have refrain from sending Augmentin Follow-up 10 days Medications: New doxycycline hyclate 100 mg PO BID 20 caps 0RF 10 days Changed From terbinafine HCl 250 mg PO DAILY 7 days 7 tabs 0RF To terbinafine HCl 250 mg PO DAILY 10 tabs 0RF 10 days Discontinued amoxicillin-pot clavulanate 875-125 mg Discontinued Reason: Doctor's Order 1 tab PO BID 7 days 14 tabs 0RF Coding Level of Care Code Est Pt Level 3 (73564) Diagnoses Tinea pedis of both feet B35.3 Laterality: bilateral Cellulitis of both feet L03.115; L03.116
== END 2023-06-09 13:23 | disposition home or self-care (01) ==
PROVIDERS: PCP Internal Medicine; Visit Provider Internal Medicine
DX: B35.3 Tinea pedis (principal); L03.115 Cellulitis of right lower limb; L03.116 Cellulitis of left lower limb
CPT/HCPCS: 99213

== ENCOUNTER 2023-06-22 08:03 | Outpatient (AMB) | payer BC, SELFPAY ==
--- NOTE | 2023-06-22 08:06 | MHC.OFFWIV ---
Intake Vital Signs 06/22/23 08:07 Height 5 ft 6 in Weight 234 lb BMI 37.8 BP 120/68 Blood Pressure Location Lt brachial Position Sitting Pulse 106 H Pulse Source Pulse Oximeter Temp 98.0 F Temp Source Oral Pulse Oximetry (%) 96 Intake Visit Reasons: EP Stomach pain/dizzy/Bloated Intake Note: pt is here for c/o stomach pain, feels bloated and unable to have a bowel movemnt since wednesday Patient Tobacco Use Status: Current everyday Tobacco user Allergies No Known Allergies [No Known Allergies*] Allergy (Verified 06/22/23 08:29) Medication List - Last Reconciled 06/22/23 by López Birmingham MD fluoxetine 20 mg PO BID 90 days risperidone 3 mg PO DAILY Do you need a note to return to daycare/school/sports/work: Yes HPI EP Stomach pain/dizzy/Bloated HPI Details 57-year-old male presents to the office for a sick visit. Patient reports he started having a cough a few days ago. Symptoms lasted for 48 hours and subsided. This was followed by nausea, headache. Smokes a pack a day. [facility] Medical History Depression Social History Housing: Condominium Alcohol intake: never Patient Tobacco Use Status: Current everyday Tobacco user Cigarette Packs Per Day: 1 Cigarettes Per Day: 20 e-Cigarette/Vaping Use: Never Used service: No Current occupational status: employed Current occupation: [employer] Cognitive needs: No Hearing needs: No Vision needs: No Physical Exam Vital Signs: Last Vital Signs Temp 98.0 F 06/22/23 08:07 Pulse 106 H 06/22/23 08:07 BP 120/68 06/22/23 08:07 Pulse Ox 96 06/22/23 08:07 BMI result Body Mass Index 37.8 Const General: cooperative and healthy appearing Nutritional Appearance: well nourished Orientation/consciousness: patient oriented x3 Limitations: no limitations HEENT Head: Yes normal to inspection Eyes General: appearance normal, both eyes and all related structures Neck Neck: Yes normal visual inspection Chest Chest palpation & inspection: normal palpation of entire chest wall Resp Effort & Inspection: normal respiratory effort Neuro General: patient oriented x3 Assessment & Plan Assessment & Plan (1) Upper respiratory tract infection: Code(s): J06.9 - Acute upper respiratory infection, unspecified Plan: Viral etiology. No antibiotics needed. PPI ordered. Viral swab ordered. Will call with the results Coding Level of Care Code Est Pt Level 3 (17623) Diagnoses Upper respiratory tract infection J06.9
[2023-06-22 08:07] VITALS: BP 120/68; PULSE 106; TEMP 36.7; O2SAT 96; BMI 37.8
== END 2023-06-22 09:11 | disposition home or self-care (01) ==
PROVIDERS: PCP Internal Medicine; Visit Provider Internal Medicine
DX: J06.9 Acute upper respiratory infection, unspecified (principal)
CPT/HCPCS: 99213

== ENCOUNTER 2023-06-22 09:07 | Outpatient (REF) | payer BC, SELFPAY ==
[2023-06-22 11:35] LABS: Influenza A PCR POSITIVE (Negative); Influenza B PCR NEGATIVE (Negative); Resp Syncy Virus RNA Qual PCR NEGATIVE (Negative); SARS COV2 PCR INHOUSE NEGATIVE (Negative)
== END 2023-06-22 09:08 | disposition home or self-care (01) ==
LOC: HO.LNP 09:07
PROVIDERS: Visit Provider Internal Medicine
DX: Z11.52 Encounter for screening for COVID-19 (principal); Z20.822 Contact with and (suspected) exposure to COVID-19; R09.89 Other specified symptoms and signs involving the circulatory and respiratory systems
CPT/HCPCS: 0241U

== ENCOUNTER 2023-06-23 12:24 | Outpatient (AMB) | payer BC, SELFPAY ==
--- NOTE | 2023-06-23 12:25 | A.OFFPC_ITS ---
Vital Signs 06/23/23 12:26 Height 5 ft 6 in Weight 237 lb 4 oz BMI 38.3 BP 136/72 Blood Pressure Location Rt brachial Position Sitting Pulse 106 H Pulse Source Pulse Oximeter Pulse Oximetry (%) 96 Oxygen Delivery Method Room Air Intake Visit Reasons: 10 day F/U athletes foot Allergies No Known Allergies [No Known Allergies*] Allergy (Verified 06/23/23 12:26) Medication List - Last Reconciled 06/23/23 by Jai Beltran MD fluoxetine 20 mg PO BID 90 days oseltamivir (Tamiflu) 75 mg PO BID 5 days pantoprazole 40 mg PO DAILY risperidone 3 mg PO DAILY Tobacco use date assessed: 06/23/23 Dental Screening Dental Screen Date: 06/23/23 Did you have a dental visit in the last 12 months?: Yes Did you have a dental problem in the last 6 months where you did not have access to dental care?: No Was dental information given to patient?: Patient has dentist HPI 10 day F/U athletes foot HPI Details Cellulitis of feet has improved, still have some rash I am treating her with Lotrisone cream now locally both feet at night and then cover with gotten socks Patient will see professor of environmental science for further evaluation Was seen in walk-in clinic yesterday for upper respiratory tract infection and found to have positive influenza a swab I have sent Tamiflu for the patient patient was instructed to start as soon as possible and push fluids and rest. [facility] Medical History Depression Social History Housing: Condominium Alcohol intake: never Patient Tobacco Use Status: Current everyday Tobacco user Cigarette Packs Per Day: 1 Cigarettes Per Day: 20 e-Cigarette/Vaping Use: Never Used service: No Current occupational status: employed Current occupation: [employer] Cognitive needs: No Hearing needs: No Vision needs: No Questionnaire Thrive Questionnaire Date Thrive assessed: 06/04/23 MIKY-7 AMB Questionnaire MIKY-7 Date MIKY - 7 assessed: 06/04/23 Source: Developed by Drs. Miguel Luis, Angelica Mark, Du Villa and colleagues, with an educational mirlande from [employer]. Review of Systems ENT Denies epistaxis and Denies nasal discharge Card Denies chest pain Resp Denies chest congestion and Denies hemoptysis GI Denies diarrhea and Denies nausea Neuro Reports no additional complaints Psych Reports no additional complaints Endo Reports no additional complaints Physical exam (Primary Care) Vital Signs: Last Vital Signs Pulse 106 H 06/23/23 12:26 BP 136/72 06/23/23 12:26 Pulse Ox 96 06/23/23 12:26 Oxygen Delivery Method Room Air 06/23/23 12:26 BMI result Body Mass Index 38.3 Tobacco/Smoking Status: Tobacco use Status Tobacco use date assessed 06/23/23 06/23/23 12:29 Patient Tobacco Use Status Current everyday Tobacco 06/23/23 12:29 e-Cigarette/Vaping Use Never Used 06/23/23 12:29 Thrive Assessment: Date of Thrive Assessment Date Thrive assessed 06/04/23 06/23/23 12:29 Const General: cooperative, comfortable and no acute distress Orientation/consciousness: patient oriented x3 HENMT Head: Yes normocephalic Eyes General: appearance normal, both eyes and all related structures Neck Neck: Yes supple Resp Effort & Inspection: normal respiratory effort, no cough and no stridor Cardio Rhythm: regular rhythm Heart sounds: S1 normal heart sound present and S2 normal heart sound present Skin General skin exam: turgor normal Neuro General: patient oriented x3, tone normal and moves all extremities Extrem Other: Cellulitis of both feet has resolved, patient have very dry and thick skin and fungal infection remains Right lower extremity: no edema Left lower extremity: no edema Assessment and Plan Assessment & Plan (1) Influenza A H1N1 infection: Code(s): J10.1 - Influenza due to other identified influenza virus with other respiratory manifestations (2) Tinea pedis: Code(s): B35.3 - Tinea pedis Qualifiers: Laterality: bilateral Qualified Code(s): B35.3 - Tinea pedis Plan Cellulitis of feet has improved, still have some rash I am treating her with Lotrisone cream now locally both feet at night and then cover with gotten socks Patient will see professor of environmental science for further evaluation Was seen in walk-in clinic yesterday for upper respiratory tract infection and found to have positive influenza a swab I have sent Tamiflu for the patient patient was instructed to start as soon as possible and push fluids and rest. Orders: Referrals Dermatology Referral E55.9 - Vitamin D deficiency, unspecified Medications: New oseltamivir (Tamiflu) 75 mg PO BID 10 caps 0RF 5 days clotrimazole-betamethasone 1-0.05 % 1 appl topical ONCE 90 grams 0RF 30 days Coding Level of Care Code Est Pt Level 3 (41576) Diagnoses Influenza A H1N1 infection J10.1 Tinea pedis of both feet B35.3 Laterality: bilateral
[2023-06-23 12:26] VITALS: BP 136/72; PULSE 106; O2SAT 96; BMI 38.3
== END 2023-06-23 14:31 | disposition home or self-care (01) ==
PROVIDERS: PCP Internal Medicine; Visit Provider Internal Medicine
DX: J10.1 Influenza due to other identified influenza virus with other respiratory manifestations (principal); B35.3 Tinea pedis
CPT/HCPCS: 99213

== ENCOUNTER 2024-02-16 13:39 | Emergency (ER) | payer OTHER, SELFPAY ==
--- NOTE | ~2024-02-16 | CT_ITS ---
EXAMINATION: CT ABDOMEN AND PELVIS WITH CONTRAST CLINICAL INFORMATION: Concern for spinal obstruction COMPARISON: None TECHNIQUE: Multiple axial images were obtained from the superior aspect of the liver through the pubic symphysis after the administration of 85 mL of intravenous Omnipaque 350. Images were evaluated on independent dedicated 3-D workstation and 3-D images were reconstructed with concurrent radiologist supervision and subsequently interpreted. Oral contrast was not administered. This CT examination was performed using dose optimization techniques as appropriate, variously including the following: *Automated exposure control *Adjustment of mA and/or kV according to patient size (this includes techniques or standardized protocols for targeted exams where dose is matched to indication/reason for exam; i.e. extremities or head) *Use of iterative reconstruction technique DLP: 571 mGy-cm FINDINGS: LUNG BASES: The visualized lung bases are clear. CARDIOMEDIASTINUM: The visualized heart is normal in size without pericardial effusion. No coronary artery calcification. LIVER: Hepatic steatosis. Normal in size. GALLBLADDER: Noninflamed. BILIARY SYSTEM: No intrahepatic or extrahepatic biliary dilation. PANCREAS: Homogeneous in attenuation. SPLEEN: Normal in size. GENITOURINARY: Bilateral kidneys demonstrate symmetric enhancement. Simple left interpolar cyst 2.2 cm; no follow-up. No perinephric fluid collection. No renal calculi. No hydroureteronephrosis. ADRENAL GLANDS: Unremarkable. REPRODUCTIVE: Prostate present. GASTROINTESTINAL: The visualized alimentary tract is normal in course. Diverticular disease is No evidence of obstruction. APPENDIX: The appendix is seen in its entirety and is unremarkable. PERITONEUM: No pneumoperitoneum. No intra-abdominal fluid collection. VASCULATURE: The abdominal aorta is normal in course and caliber. LYMPH NODES: No pathologically enlarged abdominal or pelvic lymph nodes. SOFT TISSUES/MUSCULOSKELETAL: Multilevel degenerative changes CT/CT abdomen pelvis w IV con IMPRESSION: 1. No acute abdominal or pelvic pathology. 2. Hepatic steatosis. 3. Diverticular disease. Fleischner guidelines were followed. Electronically signed by: Regino Hutchins DO 02/16/2024 10:18 PM EDT
[2024-02-16 13:49] VITALS: BP 199/138; PULSE 100; RESP 19; TEMP 36.6; O2SAT 100; BMI 29.9
--- NOTE | 2024-02-16 13:50 | ED_ITS ---
HPI - Abdominal Pain General Chief Complaint: Abdominal Pain Stated Complaint: abd pain Time Seen by Provider: 02/16/24 19:20 Source: patient Limitations: no limitations History of Present Illness ED Provider: Carolynn Teresa PA-C HPI narrative: 58-year-old male with a history of alcohol abuse, OCD, paranoia disorder presents with the abdominal pain x 3 days. Patient states he has had repetitive episodes of abdominal bloating with active diarrhea. When patient as an episode, he becomes diaphoretic due to the pain. Denies inability to pass flatus, active vomiting or fever. Patient states his symptoms began after he was bingeing on alcohol. Patient denies weakness of upper or lower extremities, paresthesia, no chest pain or back pain. Related Data Previous Rx's ?Medication ?Instructions ?Recorded fluoxetine 20 mg capsule 20 mg PO BID 90 days #180 caps 12/01/22 risperidone 3 mg tablet 3 mg PO DAILY #30 tabs 12/01/22 oseltamivir 75 mg capsule (Tamiflu) 75 mg PO BID 5 days #10 caps 06/22/23 pantoprazole 40 mg tablet,delayed 40 mg PO DAILY #14 tabs 06/22/23 release clotrimazole-betamethasone 1 1 appl topical ONCE 30 days #90 06/23/23 %-0.05 % topical cream grams oseltamivir 75 mg capsule (Tamiflu) 75 mg PO BID 5 days #10 caps 06/23/23 Allergies Allergy/AdvReac Type Severity Reaction Status Date / Time No Known Allergies Allergy Verified 02/16/24 13:51 [No Known Allergies*] Review of Systems Review of Systems Yes all other systems are reviewed and are negative Constitutional: Denies fever(s) Cardiovascular: Denies chest pain and Denies dyspnea Respiratory: Denies dyspnea Gastrointestinal: Reports abdominal pain, Reports diarrhea and Denies vomiting PMFSH Past Medical History Attestation statement: The following information was validated with the patient. Medical History Depression Social History [facility] Alcohol intake: current Alcohol intake frequency: a few times a week Patient Tobacco Use Status: Current everyday Tobacco user Cigarette Packs Per Day: 1 Cigarettes Per Day: 20 Smoked in Last 30 Days: Yes e-Cigarette/Vaping Use: Never Used Use of substances other than those prescribed or required for medical reasons: No Advance Directives: No Advance Directives Information Provided: No Do you have a plan to hurt others: No Plan service: No Current occupational status: employed Current occupation: [employer] Cognitive needs: No Hearing needs: No Vision needs: No Physical Exam ED Vital Signs: Vital Signs - 24 hr 02/16/24 13:49 02/16/24 19:43 02/16/24 22:05 Temperature 98 F 99.1 F 98.5 F Pulse Rate 100 80 75 Respiratory Rate 19 16 16 Blood Pressure 199/138 H 153/97 H 159/98 H Pulse Oximetry 100 97 97 Oxygen Delivery Method Room Air Room Air Room Air BMI result Body Mass Index 29.9 Const Other: Awake, overall well in appearance Orientation/consciousness: patient oriented x3 Resp Other: Nonlabored respirations Cardio Other: Normal peripheral perfusion, radial pulses +2 bilaterally GI Other: Abdomen is soft, obese, nontender no guarding, I can feel a slight breach in the rectus abdominis, but no large hernia Skin Other: Warm dry no rash Neuro General: patient oriented x3, no focal motor deficits and CN's II-XI intact bilaterally Psych Other: Calm cooperative Course Course Course Narrative: This is a Rapid Medical Exam performed in triage by Arianna Daniels PA-C. Full HPI, ROS and PE to be performed by primary ED provider. 58 yo F w/PMHx obesity, OCD, Vit D, presenting to the ED c/o diffuse abdominal pain s/p drinking ETOH w/bloating. +diarrhea. denies N/V. denies ETOH use today. Denies MILLAN, CP, urinary sx PE: HTNsive 199/138, abdomen soft nontender, no rebound or guarding Plan: Labs, UA, Tox screen Medical Decision Making Medical Decision Making MDM Narrative: 58-year-old male with a history of alcohol abuse, OCD, paranoia disorder presents with the abdominal pain x 3 days. Patient states he has had repetitive episodes of abdominal bloating with active diarrhea. When patient as an episode, he becomes diaphoretic due to the pain. Denies inability to pass flatus, active vomiting or fever. Patient states his symptoms began after he was bingeing on alcohol.Patient denies weakness of upper or lower extremities, paresthesia, no chest pain or back pain. Problem: Age, alcohol abuse, psychiatric illness History: Per patient I have considered the following differential diagnoses: Bowel obstruction, incarcerated hernia, strangulated hernia, perforated peptic ulcer, dissection Plan: The patient is assessment began in [facility]. He was hypertensive on arrival, likely driven by pain. His pressures have normalized. Therefore, I have considered dissection. However he is neurovascularly intact, he never complained of chest or back pain, radial pulses are equal. Given the bloating, and he does have an abdominal wall defect, I am considered partial intermittent SBO. We will obtain a CT scan. At this point the patient is not requiring any pain medication. Screening labs were already obtained as well. I have independently reviewed the following tests: Labs: No leukocytosis, not anemic, no electrolyte abnormality CT abdomen and pelvis:TECHNIQUE: Multiple axial images were obtained from the superior aspect of the liver through the pubic symphysis after the administration of 85 mL of intravenous Omnipaque 350. Images were evaluated on independent dedicated 3-D workstation and 3-D images were reconstructed with concurrent radiologist supervision and subsequently interpreted. Oral contrast was not administered. This CT examination was performed using dose optimization techniques as appropriate, variously including the following: *Automated exposure control *Adjustment of mA and/or kV according to patient size (this includes techniques or standardized protocols for targeted exams where dose is matched to indication/reason for exam; i.e. extremities or head) *Use of iterative reconstruction technique DLP: 571 mGy-cm FINDINGS: LUNG BASES: The visualized lung bases are clear. CARDIOMEDIASTINUM: The visualized heart is normal in size without pericardial effusion. No coronary artery calcification. LIVER: Hepatic steatosis. Normal in size. GALLBLADDER: Noninflamed. BILIARY SYSTEM: No intrahepatic or extrahepatic biliary dilation. PANCREAS: Homogeneous in attenuation. SPLEEN: Normal in size. GENITOURINARY: Bilateral kidneys demonstrate symmetric enhancement. Simple left interpolar cyst 2.2 cm; no follow-up. No perinephric fluid collection. No renal calculi. No hydroureteronephrosis. ADRENAL GLANDS: Unremarkable. REPRODUCTIVE: Prostate present. GASTROINTESTINAL: The visualized alimentary tract is normal in course. Diverticular disease is No evidence of obstruction. APPENDIX: The appendix is seen in its entirety and is unremarkable. PERITONEUM: No pneumoperitoneum. No intra-abdominal fluid collection. VASCULATURE: The abdominal aorta is normal in course and caliber. LYMPH NODES: No pathologically enlarged abdominal or pelvic lymph nodes. SOFT TISSUES/MUSCULOSKELETAL: Multilevel degenerative changes CT/CT abdomen pelvis w IV con IMPRESSION: 1. No acute abdominal or pelvic pathology. 2. Hepatic steatosis. 3. Diverticular disease. Fleischner guidelines were followed. Electronically signed by: Regino Hutchins DO 02/16/2024 10:18 PM EDT RP Lab Data 02/16/24 14:03 02/16/24 14:03 Labs: Lab Results 02/16/24 02/16/24 Range/Units 14:03 17:13 WBC 9.7 (4.8-10.8) X10*3/uL RBC 5.27 (4.60-5.80) X10*6/uL Hgb 17.1 D (14.0-18.0) g/dl Hct 48.2 (42.0-52.0) % MCV 91.5 (80.0-98.0) fL MCH 32.4 (27.0-33.0) pg MCHC 35.5 (31.0-36.0) g/dl RDW 12.6 (11.0-16.0) % Plt Count 218 (160-400) X10*3/uL MPV 10.3 (9.4-12.4) fL Immature Gran % (Auto) 0.3 (0.0-0.4) % Neut % (Auto) 69.3 (45-73) % Lymph % (Auto) 19.7 L (20-40) % [place] % (Auto) 8.2 (2-11) % Eos % (Auto) 2.0 (0-4) % Baso % (Auto) 0.5 (0-2) % Lymph # (Auto) 1.9 (1.2-4.9) X10*3/uL [place] # (Auto) 0.8 (0.1-1.2) X10*3/uL Eos # (Auto) 0.2 (0.0-0.4) X10*3/uL Baso # (Auto) 0.1 (0.0-0.2) X10*3/uL Abs Immat Gran (auto) 0.03 (0.00-0.03) X10*3/uL Absolute Neuts (auto) 6.7 (2.0-8.3) x10*3/uL Absolute Nucleated RBC 0.000 (0.0-0.012) X10*3/uL Nucleated RBC % (auto) 0.0 (0.0-0.2) /100WBC Sodium 137 (135-145) mmol/L Potassium 3.8 (3.3-5.1) mmol/L Chloride 100 (96-108) mmol/L Carbon Dioxide 20 L (22-29) mmol/L Anion Gap 21 H (12-20) BUN 17 H (9-16) mg/dL Creatinine 1.05 (0.5-1.4) mg/dL Estim Creat Clear Calc 79.8 Estimated GFR > 60 Random Glucose 93 (60-115) mg/dL Calcium 10.2 (8.4-10.2) mg/dL Magnesium 1.9 (1.6-2.6) mg/dL Total Bilirubin 1.7 H (0.0-1.0) mg/dL Direct Bilirubin 0.6 H (0.0-0.5) mg/dL AST 38 H (5-37) U/L ALT 49 H (0-40) U/L Alkaline Phosphatase 70 (39-117) U/L Troponin I High Sens 16.7 (<3.5-35.0) ng/L Total Protein 8.4 H (6.5-8.0) g/dL Albumin 4.5 (3.5-5.0) g/dL Lipase 23 (8-78) U/L Urine Color [place] A Urine Appearance Clear Urine pH 5.5 (5.0-9.0) Ur Specific [place] >= 1.030 H (1.005-1.025) Urine Protein 30 (1+) H (Neg-Trace) mg/dL Urine Glucose (UA) Negative (Negative) mg/dL Urine Ketones 40 (Negative) mg/dL Urine Blood Small (1+) H (Negative) Urine Nitrite Negative (Negative) Ur Leukocyte Esterase Small (1+) H (Negative) Urine RBC 6-10 H (0-2) /HPF Urine WBC 21-50 H (0-5) /HPF Ur Squamous Epith Cells 3-5 (0-2) /HPF Urine Bacteria None Seen (None Seen) Hyaline Casts 3-5 (0-2) /LPF Ethyl Alcohol < 10 mg/dL Medications Administered Discontinued Medications Generic Name Dose Route Start Last Admin Trade Name Gretchen PRN Reason Stop Dose Admin Hydromorphone HCl 1 mg 02/16/24 19:27 02/16/24 20:12 Hydromorphone Hcl 1 Mg/Ml Syringe IVPUSH 02/16/24 19:28 Not Given ONCE ONE Protocol Iohexol 100 ml 02/16/24 19:55 02/16/24 19:56 Iohexol 350 Mg/Ml 100 Ml Infus..Btl IV 02/16/24 19:56 85 ml ONCE ONE Administration Discharge Plan Discharge Clinical Impression: Diarrhea Patient Disposition: Home, Self-Care Instructions: Acute Diarrhea (ED), Acute Abdominal Pain (ED) Additional Instructions: No abnormality was noted on your CT scan. All of your labs were normal. Your binge drinking could have precipitated your discomfort and diarrhea. See home care instructions, follow up with your primary care provider as needed. Prescriptions: No Action fluoxetine 20 mg capsule 20 mg PO BID 90 Days Qty: 180 0RF risperidone 3 mg tablet 3 mg PO DAILY Qty: 30 0RF oseltamivir [Tamiflu] 75 mg capsule 75 mg PO BID 5 Days Qty: 10 0RF pantoprazole 40 mg tablet,delayed release (DR/EC) 40 mg PO DAILY Qty: 14 0RF oseltamivir [Tamiflu] 75 mg capsule 75 mg PO BID 5 Days Qty: 10 0RF clotrimazole-betamethasone 1-0.05 % cream 1 appl topical ONCE 30 Days Qty: 90 0RF Print Language: Uzbek
--- NOTE | 2024-02-16 13:50 | ECG_ITS ---
Test Reason : ABD PAIN Blood Pressure : / mmHG Vent. Rate : 088 BPM Atrial Rate : 088 BPM P-R Int : 150 ms QRS Dur : 080 ms QT Int : 398 ms P-R-T Axes : 073 -10 061 degrees QTc Int : 481 ms Normal sinus rhythm Prolonged QT Abnormal ECG When compared with ECG of 02-JUL-2020 21:50, QT has lengthened Referred By: Arianna Daniels Electronically Signed By:LEIA LIN
[2024-02-16 14:09] LABS: MANUAL DIFF FLAG NO
[2024-02-16 14:11] LABS: Basophils Absolute Auto 0.1 X10*3/uL (0.0-0.2); Basophils Percent Auto 0.5 % (0-2); Eosinophils Absolute Auto 0.2 X10*3/uL (0.0-0.4); Hematocrit 48.2 % (42.0-52.0); Hemoglobin 17.1 g/dl (14.0-18.0); Imm Gran Abs Auto 0.03 X10*3/uL (0.00-0.03); Imm Gran Pct Auto 0.3 % (0.0-0.4); Lymphocytes Absolute Auto 1.9 X10*3/uL (1.2-4.9); Lymphocytes Percent Auto 19.7 % (20-40); Mean Corpuscular HGB Conc 35.5 g/dl (31.0-36.0); Mean Corpuscular Hemoglobin 32.4 pg (27.0-33.0); Mean Corpuscular Volume 91.5 fL (80.0-98.0); Mean Platelet Volume 10.3 fL (9.4-12.4); Monocytes Absolute Auto 0.8 X10*3/uL (0.1-1.2); Monocytes Percent Auto 8.2 % (2-11); Neutrophils Absolute Auto 6.7 x10*3/uL (2.0-8.3); Neutrophils Percent Auto 69.3 % (45-73); Platelet Count 218 X10*3/uL (160-400); Red Blood Count 5.27 X10*6/uL (4.60-5.80); Red Cell Distribution Width 12.6 % (11.0-16.0); White Blood Count 9.7 X10*3/uL (4.8-10.8)
[2024-02-16 14:27] LABS: Alanine Aminotransferase 49 U/L (0-40); Albumin Level 4.5 g/dL (3.5-5.0); Alkaline Phosphatase 70 U/L (39-117); Anion Gap 21 (12-20); Aspartate Amino Transferase 38 U/L (5-37); Bilirubin Direct 0.6 mg/dL (0.0-0.5); Bilirubin Total 1.7 mg/dL (0.0-1.0); Blood Urea Nitrogen 17 mg/dL (9-16); Calcium 10.2 mg/dL (8.4-10.2); Carbon Dioxide 20 mmol/L (22-29); Chloride 100 mmol/L (96-108); Creatinine Clr Calc Pharmacy 79.8; Estimated Glomerular Filt Rate > 60; Ethanol < 10 mg/dL; Glucose Random 93 mg/dL (60-115); Lipase 23 U/L (8-78); Magnesium 1.9 mg/dL (1.6-2.6); Potassium 3.8 mmol/L (3.3-5.1); Sodium 137 mmol/L (135-145); Total Protein 8.4 g/dL (6.5-8.0)
[2024-02-16 14:34] LABS: Troponin-I High Sensitivity 16.7 ng/L (<3.5-35.0)
[2024-02-16 17:30] LABS: Appearance Urine Clear; Color Urine Orange; Glucose Urine UA Negative (Negative); Leukocyte Esterase Urine Small (1+) (Negative); Nitrite Urine Negative (Negative); PH 5.5 (5.0-9.0); Specific Gravity - Urine >= 1.030 (1.005-1.025); UMIC TRIGGER UACC YES; Urine Blood Small (1+) (Negative); Urine Ketones 40 mg/dL (Negative); Urine Protein 30 (1+) mg/dL (Neg-Trace)
[2024-02-16 17:34] LABS: Bacteria Urine None Seen (None Seen); UACC Culture Trigger YES; WBC Urine 21-50 /HPF (0-5)
[2024-02-16 19:43] VITALS: BP 153/97; PULSE 80; RESP 16; TEMP 37.3; O2SAT 97
[2024-02-16] MEDS: iohexoL 350 MG/ML 100 ML INFUS..BTL IV (19:56)
--- NOTE | 2024-02-16 20:19 | PC.NURSE ---
pt reports only 3/10 abd pain at this time. provider aware, to hold med per mar at this time.
[2024-02-16 22:05] VITALS: BP 159/98; PULSE 75; RESP 16; TEMP 36.9; O2SAT 97
[2024-02-16 23:31] VITALS: BP 159/98; PULSE 75; RESP 16; TEMP 36.9; O2SAT 97
== END 2024-02-16 23:31 | disposition home or self-care (01) ==
PROVIDERS: Physician Assistant; Emergency Provider Emergency Medicine; PCP Internal Medicine
DX: R19.7 Diarrhea, unspecified (principal); R10.9 Unspecified abdominal pain; I10 Essential (primary) hypertension; F17.210 Nicotine dependence, cigarettes, uncomplicated; Z79.899 Other long term (current) drug therapy
CPT/HCPCS: 36415; 74177; 80048; 80076; 80307; 81001; 83690; 83735; 84484; 85025; 87086; 93005; 99284; 99285; Q9967

== ENCOUNTER 2024-02-18 14:43 | Outpatient (AMB) | payer OTHER, SELFPAY ==
--- NOTE | 2024-02-18 14:47 | MHC.PC.OV ---
Vital Signs 02/18/24 14:48 Height 5 ft 6 in Weight 192 lb BMI 31.0 BP 138/98 H Blood Pressure Location Lt brachial Position Sitting Pulse 105 H Pulse Source Pulse Oximeter Pulse Oximetry (%) 97 Oxygen Delivery Method Room Air Intake Visit Reasons: ED F/U Allergies No Known Allergies [No Known Allergies*] Allergy (Verified 02/18/24 14:50) Medication List - Last Reconciled 02/18/24 by Jai Beltran MD fluoxetine 20 mg PO BID 90 days risperidone 3 mg PO DAILY Tobacco use date assessed: 02/18/24 Dental Screening Dental Screen Date: 02/18/24 Did you have a dental visit in the last 12 months?: Yes Did you have a dental problem in the last 6 months where you did not have access to dental care?: No Was dental information given to patient?: Patient has dentist HPI ED F/U HPI Details Patient is a 58-year-old gentleman with a history of alcohol abuse, OCD, paranoia disorder, presented to emergency room on of this month with a chief complaint of abdominal bloating abdominal pain and diarrhea. Patient stated that symptoms began after he was bingeing on alcohol On arrival patient's blood pressure was very 199/138 which eventually came down to 159/98 Pulse ox 100% on room air Gastric exam showed soft nontender abdomen He had a CT scan done of his abdomen which showed No acute abdominal or pelvic pathology Fatty liver Diverticular disease Hemoglobin 17.1 white count 9.7 Electrolytes within normal limit Mildly elevated liver enzymes Tropes 16.7 Lipase 23 He tells alcohol level less than 10 After evaluation patient was discharged home His blood pressure is 130 8 x 98 today His diarrhea is better, he is eating now and is at his baseline I am starting him on atenolol 25 mg Patient says that his father has a blood pressure monitor and he can check his blood pressure He will bring his blood pressure readings in a week. And will return for follow-up in 3 months [facility] Medical History Depression [facility] Alcohol intake: current Alcohol intake frequency: a few times a week Patient Tobacco Use Status: Current everyday Tobacco user Cigarette Packs Per Day: 1 Cigarettes Per Day: 20 e-Cigarette/Vaping Use: Never Used service: No Current occupational status: employed Current occupation: [employer] Cognitive needs: No Hearing needs: No Vision needs: No Questionnaire Thrive Questionnaire Date Thrive assessed: 06/04/23 AUDIT C Alcohol Use Questionnaire (AUDIT-C) 1. How often do you have a drink containing alcohol?: Monthly or less 2. How many drinks containing alcohol do you have on a typical day when you are drinking?: 1 or 2 3. How often do you have six or more drinks on one occasion?: Never Total Score: 1 Score Reviewed/Action Taken: Yes MIKY-7 AMB Questionnaire MIKY-7 Date MIKY - 7 assessed: 06/04/23 Source: Developed by Drs. Miguel Luis, Angelica Mark, Du Villa and colleagues, with an educational mirlande from [employer]. Review of Systems Const Denies chills and Denies fever(s) ENT Denies epistaxis and Denies nasal discharge Card Denies chest pain Resp Denies chest congestion, Denies cough and Denies hemoptysis GI Denies diarrhea and Denies nausea Skin/Breast Denies rash Neuro Reports no additional complaints Psych Reports no additional complaints Endo Reports no additional complaints Physical exam (Primary Care) Vital Signs: Last Vital Signs Pulse 105 H 02/18/24 14:48 BP 138/98 H 02/18/24 14:48 Pulse Ox 97 02/18/24 14:48 Oxygen Delivery Method Room Air 02/18/24 14:48 BMI result Body Mass Index 31.0 Tobacco/Smoking Status: Tobacco use Status Tobacco use date assessed 02/18/24 02/18/24 14:51 Patient Tobacco Use Status Current everyday Tobacco 02/18/24 14:51 e-Cigarette/Vaping Use Never Used 02/18/24 14:51 Thrive Assessment: Date of Thrive Assessment Date Thrive assessed 06/04/23 02/18/24 14:51 Const General: cooperative, comfortable and no acute distress Orientation/consciousness: patient oriented x3 HENMT Head: Yes normocephalic Eyes General: appearance normal, both eyes and all related structures Neck Neck: Yes supple Resp Effort & Inspection: normal respiratory effort, no cough and no stridor Cardio Rhythm: regular rhythm Heart sounds: S1 normal heart sound present and S2 normal heart sound present Skin General skin exam: turgor normal Neuro General: patient oriented x3, tone normal and moves all extremities Extrem Right lower extremity: no edema Left lower extremity: no edema Assessment and Plan Assessment & Plan (1) Hospital discharge follow-up: Code(s): Z09 - Encounter for follow-up examination after completed treatment for conditions other than malignant neoplasm (2) Hypertension, essential: Code(s): I10 - Essential (primary) hypertension (3) Acute diarrhea: Code(s): R19.7 - Diarrhea, unspecified (4) Excessive drinking alcohol: Code(s): F10.10 - Alcohol abuse, uncomplicated (5) OCD (obsessive compulsive disorder): Code(s): F42.9 - Obsessive-compulsive disorder, unspecified Qualifiers: Obsessive-compulsive disorder type: unspecified Qualified Code(s): F42.9 - Obsessive-compulsive disorder, unspecified Plan Patient is a 58-year-old gentleman with a history of alcohol abuse, OCD, paranoia disorder, presented to emergency room on of this month with a chief complaint of abdominal bloating abdominal pain and diarrhea. Patient stated that symptoms began after he was bingeing on alcohol On arrival patient's blood pressure was very 199/138 which eventually came down to 159/98 Pulse ox 100% on room air Gastric exam showed soft nontender abdomen He had a CT scan done of his abdomen which showed No acute abdominal or pelvic pathology Fatty liver Diverticular disease Hemoglobin 17.1 white count 9.7 Electrolytes within normal limit Mildly elevated liver enzymes Tropes 16.7 Lipase 23 He tells alcohol level less than 10 After evaluation patient was discharged home His blood pressure is 130 8 x 98 today His diarrhea is better, he is eating now and is at his baseline I am starting him on atenolol 25 mg Patient says that his father has a blood pressure monitor and he can check his blood pressure He will bring his blood pressure readings in a week. And will return for follow-up in 3 months Medications: New atenolol 25 mg PO DAILY 90 tabs 0RF High blood pressure Coding Level of Care Code Est Pt Level 4 (50198) Diagnoses Hospital discharge follow-up Z09 Hypertension, essential I10 Acute diarrhea R19.7 Excessive drinking alcohol F10.10 Obsessive-compulsive disorder, unspecified type F42.9 Obsessive-compulsive disorder type: unspecified
[2024-02-18 14:48] VITALS: BP 138/98; PULSE 105; O2SAT 97; BMI 31.0
== END 2024-02-18 15:08 | disposition home or self-care (01) ==
PROVIDERS: PCP Internal Medicine; Visit Provider Internal Medicine
DX: Z09 Encounter for follow-up examination after completed treatment for conditions other than malignant neoplasm (principal); I10 Essential (primary) hypertension; R19.7 Diarrhea, unspecified; F10.10 Alcohol abuse, uncomplicated; F42.9 Obsessive-compulsive disorder, unspecified

== ENCOUNTER → 2024-02-18 14:43 | Outpatient (BNVA) | payer OTHER, SELFPAY | PROVIDERS: PCP Internal Medicine; Visit Provider Internal Medicine | DX: Z09 Encounter for follow-up examination after completed treatment for conditions other than malignant neoplasm (principal); I10 Essential (primary) hypertension; R19.7 Diarrhea, unspecified; F10.10 Alcohol abuse, uncomplicated; F42.9 Obsessive-compulsive disorder, unspecified | CPT/HCPCS: 96127; 99212 ==

== ENCOUNTER → 2024-03-17 09:54 | Outpatient (BNVA) | payer OTHER, SELFPAY | PROVIDERS: PCP Internal Medicine ==

== ENCOUNTER 2024-03-28 09:02 | Emergency (ER) | payer OTHER, SELFPAY ==
--- NOTE | ~2024-03-28 | CT_ITS ---
EXAMINATION: CT ABDOMEN AND PELVIS WITH CONTRAST CLINICAL INFORMATION: Abdominal pain. COMPARISON: CT dated February 16, 2024. TECHNIQUE: Multidetector volumetric images were obtained from the superior aspect of the liver through the pubic symphysis following administration 85 mL of Omnipaque 350 intravenous contrast without reported immediate complications. Sagittal and coronal reformatted images were obtained on the technologist's workstation. Oral contrast: No This CT examination was performed using dose optimization techniques as appropriate, variously including the following: *Automated exposure control *Adjustment of mA and/or kV according to patient size (this includes techniques or standardized protocols for targeted exams where dose is matched to indication/reason for exam; i.e. extremities or head) *Use of iterative reconstruction technique DLP: 620 mGy-cm FINDINGS: LUNG BASES: No gross pulmonary nodules or acute airspace disease in the included lung bases. LIVER, GALLBLADDER, AND BILIARY TREE: Liver measures 16 cm. Decreased enhancement pattern. Nonspecific 6 mm hypodensity in the left hepatic lobe too small to be fully characterized. Main portal vein and main hepatic veins are patent. Intrahepatic portion of the IVC is patent. No pericholecystic fluid collection or gallbladder wall thickening. No intrahepatic or extrahepatic biliary ductal dilatation. PANCREAS: No focal pancreatic mass. No peripancreatic fluid collection. No main pancreatic ductal dilatation. SPLEEN: Measures 9 cm. No focal mass. ADRENAL GLANDS: Soft tissue fullness without nodular lesions. KIDNEYS AND URETERS: 11 mm hypodensity in the posterior midportion of the left kidney. No gross renal mass or hydronephrosis in the kidney. Subcentimeter hypodensity in the lower pole, right kidney. BLADDER: Fluid-filled. Questionable wall thickening versus poor distention.. GASTROINTESTINAL TRACT: There is an appendicolith. Appendix is normal and diameter. Numerous diverticula in the sigmoid colon. No intestinal obstruction pattern. No ascites. No pneumatosis intestinalis. No pneumoperitoneum. ABDOMINAL WALL: Small fat-containing epigastric hernia. Diastases abdominal rectus muscles. LYMPH NODES: No gross lymphadenopathy, mesenteric or retroperitoneal. VASCULAR: Calcified plaques in the distal infrarenal abdominal aorta and iliac arteries without aneurysm or dissection. OSSEOUS STRUCTURES: Superior endplate compression deformities representing 20% volume loss at T12 and T11 likely old. Multilevel marginal osteophyte formation and decreased intervertebral disc height at L2-3, L4-5, L5-S1 levels. Trabeculated lytic lesion at L2 likely an intraosseous lipoma. Grade 1 retrolisthesis L2-3 and L3-4 on a degenerative basis. CT/CT abdomen pelvis w IV con IMPRESSION: Small fat-containing epigastric hernia. Diverticular disease, sigmoid colon. Cystic lesions, kidneys. Fleischner guidelines were followed. Electronically signed by: Eddie Parham MD 03/28/2024 01:08 PM EST
[2024-03-28 09:24] VITALS: BP 190/108; PULSE 93; RESP 18; TEMP 37.1; O2SAT 97; BMI 32.1
[2024-03-28 10:02] LABS: Basophils Absolute Auto 0.1 X10*3/uL (0.0-0.2); Basophils Percent Auto 0.9 % (0-2); Eosinophils Percent Auto 0.1 % (0-4); Hematocrit 42.9 % (42.0-52.0); Hemoglobin 15.6 g/dl (14.0-18.0); Imm Gran Abs Auto 0.02 X10*3/uL (0.00-0.03); Imm Gran Pct Auto 0.2 % (0.0-0.4); Lymphocytes Absolute Auto 1.2 X10*3/uL (1.2-4.9); Lymphocytes Percent Auto 15.3 % (20-40); MANUAL DIFF FLAG NO; Mean Corpuscular HGB Conc 36.4 g/dl (31.0-36.0); Mean Corpuscular Hemoglobin 32.8 pg (27.0-33.0); Mean Corpuscular Volume 90.3 fL (80.0-98.0); Mean Platelet Volume 9.3 fL (9.4-12.4); Monocytes Absolute Auto 1.1 X10*3/uL (0.1-1.2); Monocytes Percent Auto 13.5 % (2-11); Neutrophils Absolute Auto 5.6 x10*3/uL (2.0-8.3); Platelet Count 273 X10*3/uL (160-400); Red Blood Count 4.75 X10*6/uL (4.60-5.80); Red Cell Distribution Width 13.4 % (11.0-16.0); White Blood Count 8.1 X10*3/uL (4.8-10.8)
--- NOTE | 2024-03-28 10:14 | PC.NURSE ---
ciwa score of 8, patient with beads of sweat and tremors. alert and oriented. IV established labs sent. patient states last drink was wednesday, denies seizure w/ alcohol withdrawal. states he only gets tremors and sweats. ambulating independently in room. reports taking a laxative d/t stomach pain. last bowel movement was this morning, states it was normal for him. denies nausea/vomiting
[2024-03-28 10:17] LABS: Alanine Aminotransferase 43 U/L (0-40); Albumin Level 4.2 g/dL (3.5-5.0); Alkaline Phosphatase 72 U/L (39-117); Anion Gap 14 (12-20); Aspartate Amino Transferase 53 U/L (5-37); Bilirubin Total 1.4 mg/dL (0.0-1.0); Blood Urea Nitrogen 14 mg/dL (9-16); Calcium 9.2 mg/dL (8.4-10.2); Carbon Dioxide 22 mmol/L (22-29); Chloride 102 mmol/L (96-108); Creatinine Clr Calc Pharmacy 93.4; Estimated Glomerular Filt Rate > 60; Glucose Random 114 mg/dL (60-115); Potassium 3.7 mmol/L (3.3-5.1); Sodium 134 mmol/L (135-145); Total Protein 7.6 g/dL (6.5-8.0)
--- NOTE | 2024-03-28 10:22 | ED_ITS ---
HPI - General Adult General Chief complaint: ETOH/Substance Use Stated complaint: ETOH Time Seen by Provider: 03/28/24 10:22 Source: patient Mode of arrival: ambulatory Limitations: no limitations History of Present Illness ED Provider: Barbie Sosa PA-C HPI narrative: Patient is a 58 year old assigned male at with a history of OCD, tobacco use, HTN, and alcohol abuse presenting to the emergency department today with abdominal pain after binge drinking. Patient states that he has been binge drinking over the last few weeks with his last drink being 3 days ago. Patient states that he is having abdominal pain and shakes. Patient states that he does not seize when he stops drinking. Patient denies any dizziness, lightheadedness, nausea, vomiting, fever, chills, blurry vision, double vision, loss of vision, chest pain, difficulty breathing, shortness of breath, back pain, night sweats, pain with urination, increased urinary frequency, increased urinary urgency, blood in his urine or stool, syncope or a near syncopal episode, recent trauma or falls, bowel incontinence, bladder incontinence, or any other complaints at this time. Relieving factors: none Exacerbating factors: none Associated symptoms: denies other symptoms Treatments prior to arrival: none Related Data Previous Rx's ?Medication ?Instructions ?Recorded fluoxetine 20 mg capsule 20 mg PO BID 90 days #180 caps 12/01/22 risperidone 3 mg tablet 3 mg PO DAILY #30 tabs 12/01/22 atenolol 25 mg tablet 25 mg PO DAILY High blood pressure 02/18/24 #90 tabs Allergies Allergy/AdvReac Type Severity Reaction Status Date / Time No Known Allergies Allergy Verified 03/28/24 09:25 [No Known Allergies*] Review of Systems 2 Constitutional: Constitutional: Reports no additional constitutional complaints, Denies chills, Denies fever(s) and Denies night sweats Eyes: Eyes: Reports no additional eye complaints, Denies blurry vision, Denies change in vision, Denies diplopia, Denies eye discharge, Denies loss of vision and Denies eye pain ENT: Denies dizziness Cardiovascular: Cardiovascular: Reports no additional cardiovascular complaints, Denies chest pain, Denies lightheadedness, Denies Loss of Consciousness and Denies dyspnea Respiratory: Respiratory: Reports no additional respiratory complaints and Denies dyspnea Gastrointestinal: Gastrointestinal: Reports no additional gastrointestinal complaints, Reports abdominal pain, Denies melena, Denies hematochezia, Denies change in bowel habits and Denies change in stool character Genitourinary: Genitourinary: Reports no additional male genitourinary complaints, Denies hematuria, Denies oliguria, Denies difficulty urinating, Denies dysuria, Denies urinary frequency, Denies urinary hesitancy, Denies urinary incontinence and Denies urinary urgency Musculoskeletal: Musculoskeletal: Reports no additional musculoskeletal complaints, Denies numbness and Denies tingling Neurologic: Denies dizziness, Denies loss of vision, Denies numbness and Denies tingling Psychiatric: Psychiatric: Reports no additional psychiatric complaints Endocrine: Endocrine: Reports no additional endocrine complaints Hematologic/Lymphatic: Hematologic/Lymphatic: Reports no additional hematologic/lymphatic complaints Allergic/Immunologic: Allergic/Immunologic: Reports no additional allergic/immunologic complaints PMFSH Past Medical History Attestation statement: The following information was validated with the patient. Source: old records reviewed and nursing notes reviewed Medical History Depression Social History [facility] Alcohol intake: current Alcohol intake frequency: a few times a week Patient Tobacco Use Status: Current everyday Tobacco user Cigarette Packs Per Day: 1 Cigarettes Per Day: 20 e-Cigarette/Vaping Use: Never Used Advance Directives: Yes Advance Directives Information Provided: Yes Advance Directives on File: No service: No Current occupational status: employed Current occupation: [employer] Cognitive needs: No Hearing needs: No Vision needs: No Physical Exam ED Vital Signs: Vital Signs - 24 hr 03/28/24 09:24 03/28/24 10:47 03/28/24 12:33 Temperature 98.8 F 99.0 F 98.6 F Pulse Rate 93 82 79 Respiratory Rate 18 20 18 Blood Pressure 190/108 H 189/98 H 173/94 H Pulse Oximetry 97 97 96 Oxygen Delivery Method Room Air Room Air Room Air BMI result Body Mass Index 32.1 Const General: cooperative, no acute distress, alert and awake Nutritional Appearance: well nourished Orientation/consciousness: patient oriented x3 Limitations: no limitations HENMT Head: Yes normal to inspection and Yes atraumatic Ears: hearing grossly normal bilaterally and external ears normal General nose exam: Normal external nose present, no nasal discharge noted and no epistaxis Face and sinus: Yes normal facial exam, No abrasion and No laceration Mouth: Normal oral and palatal mucosa present, no drooling and no muffled voice Eyes General: appearance normal, both eyes and all related structures Periorbital: periorbital findings normal Eyelids: Yes eyelids normal Conjunctivae: conjunctivae normal Pupils: Equal, round and reactive pupils present EOM: EOMs intact bilaterally Neck Neck: Yes normal visual inspection, Yes full ROM and Yes no lymphadenopathy Chest Chest palpation & inspection: normal inspection of the chest Resp Effort & Inspection: normal respiratory effort and able to speak in complete sentences GI Inspection: Yes normal to inspection Neuro General: patient oriented x3 and moves all extremities Cranial nerves: Yes Equal, round and reactive pupils present Cognition (Neuro): normal cognition Extrem General: Yes normal to inspection, Yes full ROM and Yes capillary refill normal Psych Appearance: grossly normal Mental Status: mental status grossly normal Affect: normal affect Attitude: cooperative Thought process: Normal thought process present Thought content: Normal thought content present Insight: Good insight present (Psych) Medications Administered Discontinued Medications Generic Name Dose Route Start Last Admin Trade Name Freq PRN Reason Stop Dose Admin Iohexol 100 ml 03/28/24 10:58 03/28/24 10:59 Iohexol 350 Mg/Ml 100 Ml Infus..Btl IV 03/28/24 10:59 85 ml ONCE ONE Administration Lorazepam 2 mg 03/28/24 10:33 03/28/24 10:43 Lorazepam 2 Mg/Ml Vial IVPUSH 03/28/24 10:34 2 mg ONCE ONE Administration Lorazepam 2 mg 03/28/24 12:37 03/28/24 12:44 Lorazepam 2 Mg/Ml Vial IVPUSH 03/28/24 12:38 2 mg ONCE ONE Administration Morphine Sulfate 4 mg 03/28/24 10:33 03/28/24 10:43 Morphine Sulfate 4 Mg/Ml Cartridge IVPUSH 03/28/24 10:34 4 mg ONCE ONE Administration Protocol Ondansetron HCl 4 mg 03/28/24 10:33 03/28/24 10:43 Ondansetron Hcl 4 Mg/2 Ml Vial IVPUSH 03/28/24 10:34 4 mg ONCE ONE Administration Ondansetron HCl 4 mg 03/28/24 12:37 03/28/24 12:44 Ondansetron Hcl 4 Mg/2 Ml Vial IVPUSH 03/28/24 12:38 4 mg ONCE ONE Administration Medical Decision Making Medical Decision Making [facility] Narrative: Patient is a 58 year old assigned male at with a history of OCD, tobacco use, HTN, and alcohol abuse presenting to the emergency department today with abdominal pain after binge drinking. Patient's physical exam was unremarkable. Patient's blood work was unremarkable. Patient's CT abd/pelvis showed no acute process. I explained my physical exam findings as well as all test results to the patient. I answered all questions asked by the patient. Patient received IV Morphine, Zofran, and Ativan which, upon re-evaluation, he stated it helped his symptoms significantly. Patient spoke with the addiction team who was unable to secure him a detox bed at this time but did provide him with outpatient resources. I stressed the importance of the patient taking his medication as directed (either prescribed or as the over the counter packaging recommends). I stressed the importance of the patient following up with his primary care provider. I stressed the importance of the patient returning to the emergency department immediately if his symptoms were to worsen or if he were to develop any dizziness, shortness of breath, difficulty breathing, chest pain, blurry vision, loss of vision, nausea, vomiting, abdominal pain, fever, chills, back pain, or any other complaints. Patient verbalized agreement and understanding with this treatment plan and discharge. Differential Diagnosis Differential Diagnoses: The differential diagnosis associated with the presentation includes Alcohol abuse Alcohol use Abdominal pain Admission/Observation Consideration of admission/observation: Escalation of care including admission/observation considered Patient would have been admitted to the hospital had his work up had any findings where hospital admission was appropriate and his clinical presentation warranted hospital admission. Consult Healthcare Provider Management of the patient was discussed with: Behavioral Health Provider (spoke with the addiction team as noted in the MDM Rationale portion of this note.) Lab Data [facility] Lab Attestation statement: I reviewed the patient's lab results. My interpretation of these results are in the MDM Rationale portion of this note. 03/28/24 09:57 03/28/24 09:57 Labs: Lab Results 03/28/24 Range/Units 09:57 WBC 8.1 (4.8-10.8) X10*3/uL RBC 4.75 (4.60-5.80) X10*6/uL Hgb 15.6 (14.0-18.0) g/dl Hct 42.9 (42.0-52.0) % MCV 90.3 (80.0-98.0) fL MCH 32.8 (27.0-33.0) pg MCHC 36.4 H (31.0-36.0) g/dl RDW 13.4 (11.0-16.0) % Plt Count 273 D (160-400) X10*3/uL MPV 9.3 L (9.4-12.4) fL Immature Gran % (Auto) 0.2 (0.0-0.4) % Neut % (Auto) 70.0 (45-73) % Lymph % (Auto) 15.3 L (20-40) % Mclean % (Auto) 13.5 H (2-11) % Eos % (Auto) 0.1 (0-4) % Baso % (Auto) 0.9 (0-2) % Lymph # (Auto) 1.2 (1.2-4.9) X10*3/uL Mclean # (Auto) 1.1 (0.1-1.2) X10*3/uL Eos # (Auto) 0.0 (0.0-0.4) X10*3/uL Baso # (Auto) 0.1 (0.0-0.2) X10*3/uL Abs Immat Gran (auto) 0.02 (0.00-0.03) X10*3/uL Absolute Neuts (auto) 5.6 (2.0-8.3) x10*3/uL Absolute Nucleated RBC 0.000 (0.0-0.012) X10*3/uL Nucleated RBC % (auto) 0.0 (0.0-0.2) /100WBC Sodium 134 L (135-145) mmol/L Potassium 3.7 (3.3-5.1) mmol/L Chloride 102 (96-108) mmol/L Carbon Dioxide 22 (22-29) mmol/L Anion Gap 14 (12-20) BUN 14 (9-16) mg/dL Creatinine 0.96 (0.5-1.4) mg/dL Estim Creat Clear Calc 93.4 Estimated GFR > 60 Random Glucose 114 (60-115) mg/dL Calcium 9.2 D (8.4-10.2) mg/dL Total Bilirubin 1.4 H (0.0-1.0) mg/dL AST 53 H (5-37) U/L ALT 43 H (0-40) U/L Alkaline Phosphatase 72 (39-117) U/L Total Protein 7.6 (6.5-8.0) g/dL Albumin 4.2 (3.5-5.0) g/dL Lipase 20 (8-78) U/L Ethyl Alcohol < 10 mg/dL Independent Interpretation I performed an independent interpretation of an: CT Scan Interpretation: My interpretation is in agreement with the radiologist's impression of this imaging study. L EXAMINATION: CT ABDOMEN AND PELVIS WITH CONTRAST CLINICAL INFORMATION: Abdominal pain. COMPARISON: CT dated February 16, 2024. TECHNIQUE: Multidetector volumetric images were obtained from the superior aspect of the liver through the pubic symphysis following administration 85 mL of Omnipaque 350 intravenous contrast without reported immediate complications. Sagittal and coronal reformatted images were obtained on the technologist's workstation. Oral contrast: No This CT examination was performed using dose optimization techniques as appropriate, variously including the following: *Automated exposure control *Adjustment of mA and/or kV according to patient size (this includes techniques or standardized protocols for targeted exams where dose is matched to indication/reason for exam; i.e. extremities or head) *Use of iterative reconstruction technique DLP: 620 mGy-cm FINDINGS: LUNG BASES: No gross pulmonary nodules or acute airspace disease in the included lung bases. LIVER, GALLBLADDER, AND BILIARY TREE: Liver measures 16 cm. Decreased enhancement pattern. Nonspecific 6 mm hypodensity in the left hepatic lobe too small to be fully characterized. Main portal vein and main hepatic veins are patent. Intrahepatic portion of the IVC is patent. No pericholecystic fluid collection or gallbladder wall thickening. No intrahepatic or extrahepatic biliary ductal dilatation. PANCREAS: No focal pancreatic mass. No peripancreatic fluid collection. No main pancreatic ductal dilatation. SPLEEN: Measures 9 cm. No focal mass. ADRENAL GLANDS: Soft tissue fullness without nodular lesions. KIDNEYS AND URETERS: 11 mm hypodensity in the posterior midportion of the left kidney. No gross renal mass or hydronephrosis in the kidney. Subcentimeter hypodensity in the lower pole, right kidney. BLADDER: Fluid-filled. Questionable wall thickening versus poor distention. GASTROINTESTINAL TRACT: There is an appendicolith. Appendix is normal and diameter. Numerous diverticula in the sigmoid colon. No intestinal obstruction pattern. No ascites. No pneumatosis intestinalis. No pneumoperitoneum. ABDOMINAL WALL: Small fat-containing epigastric hernia. Diastases abdominal rectus muscles. LYMPH NODES: No gross lymphadenopathy, mesenteric or retroperitoneal. VASCULAR: Calcified plaques in the distal infrarenal abdominal aorta and iliac arteries without aneurysm or dissection. OSSEOUS STRUCTURES: Superior endplate compression deformities representing 20% volume loss at T12 and T11 likely old. Multilevel marginal osteophyte formation and decreased intervertebral disc height at L2-3, L4-5, L5-S1 levels. Trabeculated lytic lesion at L2 likely an intraosseous lipoma. Grade 1 retrolisthesis L2-3 and L3-4 on a degenerative basis. CT/CT abdomen pelvis w IV con IMPRESSION: Small fat-containing epigastric hernia. Diverticular disease, sigmoid colon. Cystic lesions, kidneys. Fleischner guidelines were followed. Electronically signed by: Eddie Parham MD 03/28/2024 01:08 PM [facility] Dictated By: Eddie Heller Signed By: Electronically signed by Eddie Garcia 03/28/24 1308 Radiology Impression Discussion of test interpretation with radiology: I have reviewed the radiologist's reading. Critical Care Time Critical Care Time Critical Care Time: Yes Total Critical Care Time: 34 Attestation: I spent 34 minutes of Critical Care Time with this patient. This does not include time spent on separately reported billable procedures. Discharge Plan Discharge Clinical Impression: Alcohol abuse, Abdominal pain Patient Disposition: Home, Self-Care Instructions: Abuse of Alcohol (DC), Abdominal Pain (ED) Additional Instructions: Follow up with your primary care provider. Return to the emergency department immediately if your symptoms worsen or if you develop any dizziness, shortness of breath, difficulty breathing, chest pain, blurry vision, loss of vision, nausea, vomiting, abdominal pain, fever, chills, back pain, or any other complaints. Prescriptions: No Action fluoxetine 20 mg capsule 20 mg PO BID 90 Days Qty: 180 0RF risperidone 3 mg tablet 3 mg PO DAILY Qty: 30 0RF atenolol 25 mg tablet 25 mg PO DAILY Qty: 90 0RF Referrals: Jai Beltran MD [Primary Care Provider] - Print Language: Greenlandic
[2024-03-28 10:35] LABS: Ethanol < 10 mg/dL
[2024-03-28] MEDS: ondansetron HCL 4 MG/2 ML VIAL IVPUSH ×2 (10:43→12:44)
[2024-03-28] MEDS: Morphine Sulfate 4 MG/ML CARTRIDGE IVPUSH (10:43)
[2024-03-28] MEDS: LORazepam 2 MG/ML VIAL IVPUSH ×2 (10:43→12:44)
[2024-03-28 10:47] VITALS: BP 189/98; PULSE 82; RESP 20; TEMP 37.2; O2SAT 97
[2024-03-28 10:53] LABS: Lipase 20 U/L (8-78)
[2024-03-28] MEDS: iohexoL 350 MG/ML 100 ML INFUS..BTL IV (10:59)
--- NOTE | 2024-03-28 11:50 | PC.NURSE ---
health and wellness coach met with patient, patient resting quietly in room. reports improvement in pain.
--- NOTE | 2024-03-28 11:55 | MHC.RECOVRN ---
Met with pt in ED20 after Addiction Consult for alcohol use. Pt laying in bed, asleep, wakes to voice. Pt hesitant to disclose full breadth of alcohol use to t/w. Pt reports alcohol use, 2 pints whiskey daily on Saturdays and Sundays. At first pt informed t/w he only drinks on the weekends and drinks non-alcohol containing beer during the week. Upon further discussion, pt reports 4+ days during the week he drinks 0.5 pint whiskey. Pt reports he begins drinking at 0800. Pt reports he has been drinking this amount x 8 months. Pt reports when he does not drink he experiences withdrawal symptoms including headache, diaphoresis, and tremors. Denies hx withdrawal seizure. Pt reports he lives alone, however, his mother and father are very concerned with his alcohol use. Pt denies hx treatment for AUD in the past. Discussed recovery resources and supports, including ATS. Pt would like referral to [facility] ATS. Pt does not want to go any further than [facility] for treatment. Pt denies other questions or concerns for t/w. Will reach out to [facility] to see if there is bed availability and send pts referral. RN aware.
[2024-03-28 12:33] VITALS: BP 173/94; PULSE 79; RESP 18; TEMP 37; O2SAT 96
--- NOTE | 2024-03-28 13:49 | MHC.RECOVRN ---
[facility] has received pts referral, there is a bed available. Continue awaiting review.
--- NOTE | 2024-03-28 14:58 | MHC.RECOVRN ---
Met with pt in ED20 to follow up. Pt decided he would like to discharge and review resources at home with his father. Written resources provided including ATS information, harm reduction, IOP, local AA meetings, recovery coaching, [facility], etc. Pt denies questions or concerns for t/w. Discussed with pts RN and ED provider.
[2024-03-28 15:55] VITALS: BP 173/94; PULSE 79; RESP 18; TEMP 37; O2SAT 96
== END 2024-03-28 15:15 | disposition home or self-care (01) ==
PROVIDERS: Physician Assistant Medical; Emergency Provider Emergency Medicine; PCP Internal Medicine
DX: F10.10 Alcohol abuse, uncomplicated (principal); Y90.0 Blood alcohol level of less than 20 mg/100 ml; R10.9 Unspecified abdominal pain; I10 Essential (primary) hypertension; F17.210 Nicotine dependence, cigarettes, uncomplicated; Z79.899 Other long term (current) drug therapy
CPT/HCPCS: 36415; 74177; 80053; 80307; 83690; 85025; 96374; 96375; 96376; 99284; J2060; J2270; J2405; Q9967

== ENCOUNTER → 2024-03-28 10:33 | Outpatient (BNV) | payer OTHER, SELFPAY | PROVIDERS: Emergency Provider Emergency Medicine; PCP Internal Medicine; Visit Provider Radiology Diagnostic Radiology | DX: R10.9 Unspecified abdominal pain (principal) | CPT/HCPCS: 74177 ==

== ENCOUNTER 2024-03-29 07:55 | Emergency (ER) | payer OTHER, SELFPAY ==
[2024-03-29 07:56] VITALS: BP 160/98; PULSE 91; RESP 16; TEMP 37; O2SAT 98; BMI 32.4
--- NOTE | 2024-03-29 10:10 | ED.GENADULT ---
HPI - General Adult General Chief complaint: ETOH/Substance Use Stated complaint: Detox Time Seen by Provider: 03/29/24 10:10 Source: patient Mode of arrival: ambulatory Limitations: no limitations History of Present Illness ED Provider: Barbie Sosa PA-C HPI narrative: Patient is a 58 year old assigned male at with a history of alcohol abuse presenting to the emergency department today requesting detox. Patient states that he was seen here yesterday for detox help but there were no beds and now he is back today to attempt to be placed. Patient denies any dizziness, lightheadedness, abdominal pain, nausea, vomiting, fever, chills, blurry vision, double vision, loss of vision, chest pain, difficulty breathing, shortness of breath, back pain, night sweats, pain with urination, increased urinary frequency, increased urinary urgency, blood in his urine or stool, syncope or a near syncopal episode, recent trauma or falls, bowel incontinence, bladder incontinence, or any other complaints at this time. Relieving factors: none Exacerbating factors: none Associated symptoms: denies other symptoms Treatments prior to arrival: none Related Data Previous Rx's ?Medication ?Instructions ?Recorded fluoxetine 20 mg capsule 20 mg PO BID 90 days #180 caps 12/01/22 risperidone 3 mg tablet 3 mg PO DAILY #30 tabs 12/01/22 atenolol 25 mg tablet 25 mg PO DAILY High blood pressure 02/18/24 #90 tabs naltrexone 50 mg tablet 50 mg PO DAILY #30 tabs 03/29/24 Allergies Allergy/AdvReac Type Severity Reaction Status Date / Time No Known Allergies Allergy Verified 03/29/24 07:56 [No Known Allergies*] Review of Systems Constitutional: Constitutional: Reports no additional constitutional complaints, Denies chills, Denies fever(s) and Denies night sweats Eyes: Eyes: Reports no additional eye complaints, Denies blurry vision, Denies change in vision, Denies diplopia, Denies eye discharge, Denies loss of vision and Denies eye pain ENT: Denies dizziness Cardiovascular: Cardiovascular: Reports no additional cardiovascular complaints, Denies chest pain, Denies lightheadedness, Denies Loss of Consciousness and Denies dyspnea Respiratory: Respiratory: Reports no additional respiratory complaints and Denies dyspnea Gastrointestinal: Gastrointestinal: Reports no additional gastrointestinal complaints, Denies abdominal pain, Denies melena, Denies hematochezia, Denies change in bowel habits and Denies change in stool character Genitourinary: Genitourinary: Reports no additional male genitourinary complaints, Denies hematuria, Denies oliguria, Denies difficulty urinating, Denies dysuria, Denies urinary frequency, Denies urinary hesitancy, Denies urinary incontinence and Denies urinary urgency Musculoskeletal: Musculoskeletal: Reports no additional musculoskeletal complaints, Denies numbness and Denies tingling Neurologic: Denies dizziness, Denies loss of vision, Denies numbness and Denies tingling Psychiatric: Psychiatric: Reports no additional psychiatric complaints Endocrine: Endocrine: Reports no additional endocrine complaints Hematologic/Lymphatic: Hematologic/Lymphatic: Reports no additional hematologic/lymphatic complaints Allergic/Immunologic: Allergic/Immunologic: Reports no additional allergic/immunologic complaints [facility] Past Medical History Attestation statement: The following information was validated with the patient. Source: old records reviewed and nursing notes reviewed Medical History Depression Social History Social History Housing: Condominium Alcohol intake: current Alcohol intake frequency: a few times a week Patient Tobacco Use Status: Current everyday Tobacco user Cigarette Packs Per Day: 1 Cigarettes Per Day: 20 e-Cigarette/Vaping Use: Never Used service: No Current occupational status: employed Current occupation: [employer] Cognitive needs: No Hearing needs: No Vision needs: No Physical Exam ED Vital Signs: Vital Signs - 24 hr 03/29/24 07:56 03/29/24 10:32 Temperature 98.6 F 98.6 F Pulse Rate 91 91 Respiratory Rate 16 16 Blood Pressure 160/98 H 160/98 H Pulse Oximetry 98 98 Oxygen Delivery Method Room Air Room Air BMI result Body Mass Index 32.4 Const General: cooperative, no acute distress, alert and awake Nutritional Appearance: well nourished Orientation/consciousness: patient oriented x3 Limitations: no limitations HENMT Head: Yes normal to inspection and Yes atraumatic Ears: hearing grossly normal bilaterally and external ears normal General nose exam: Normal external nose present, no nasal discharge noted and no epistaxis Face and sinus: Yes normal facial exam, No abrasion and No laceration Mouth: Normal oral and palatal mucosa present, no drooling and no muffled voice Eyes General: appearance normal, both eyes and all related structures Periorbital: periorbital findings normal Eyelids: Yes eyelids normal Conjunctivae: conjunctivae normal Pupils: Equal, round and reactive pupils present EOM: EOMs intact bilaterally Neck Neck: Yes normal visual inspection, Yes full ROM and Yes no lymphadenopathy Chest Chest palpation & inspection: normal inspection of the chest Resp Effort & Inspection: normal respiratory effort and able to speak in complete sentences GI Inspection: Yes normal to inspection Neuro General: patient oriented x3 and moves all extremities Cranial nerves: Yes Equal, round and reactive pupils present Cognition (Neuro): normal cognition Extrem General: Yes normal to inspection, Yes full ROM and Yes capillary refill normal Psych Appearance: grossly normal Mental Status: mental status grossly normal Affect: normal affect Attitude: cooperative Thought process: Normal thought process present Thought content: Normal thought content present Insight: Good insight present (Psych) Medical Decision Making Medical Decision Making MDM Narrative: Patient is a 58 year old assigned male at with a history of alcohol abuse presenting to the emergency department today requesting detox placement. Patient's physical exam was unremarkable. Patient spoke to the addiction team who recommended he be a walk in patient at the [facility]. I explained my physical exam findings to the patient. I answered all questions asked by the patient. I stressed the importance of the patient taking his medication as directed (either prescribed or as the over the counter packaging recommends). I stressed the importance of the patient following up with his primary care provider. I stressed the importance of the patient returning to the emergency department immediately if he were to develop any dizziness, shortness of breath, difficulty breathing, chest pain, blurry vision, loss of vision, nausea, vomiting, abdominal pain, fever, chills, back pain, or any other complaints. Patient verbalized agreement and understanding with this treatment plan and discharge. Differential Diagnosis Differential Diagnoses: The differential diagnosis associated with the presentation includes Alcohol abuse Admission/Observation Consideration of admission/observation: Escalation of care including admission/observation considered Patient would have been admitted to the hospital had his clinical presentation warranted hospital admission. Consult Healthcare Provider Management of the patient was discussed with: Behavioral Health Provider (spoke to the addiction team as noted in the MDM Rationale portion of this note.) Discharge Plan Discharge Clinical Impression: Alcohol abuse Patient Disposition: Home, Self-Care Instructions: Abuse of Alcohol (DC) Additional Instructions: Follow up with your primary care provider. Return to the emergency department immediately if you develop any dizziness, shortness of breath, difficulty breathing, chest pain, blurry vision, loss of vision, nausea, vomiting, abdominal pain, fever, chills, back pain, or any other complaints. Prescriptions: No Action fluoxetine 20 mg capsule 20 mg PO BID 90 Days Qty: 180 0RF risperidone 3 mg tablet 3 mg PO DAILY Qty: 30 0RF atenolol 25 mg tablet 25 mg PO DAILY Qty: 90 0RF naltrexone 50 mg tablet 50 mg PO DAILY Qty: 30 0RF Rx Instructions: take 1/2 tab daily for 3 days then increase to one tab daily Referrals: Jai Beltran MD [Primary Care Provider] - Randee Hannon CNP [Nurse Practitioner] - Interventions: ED Discharge Assessment Last Done: 03/29/24 10:32 Discharge Date/Time: 03/29/24 10:34 Print Language: Mohawk
[2024-03-29 10:32] VITALS: BP 160/98; PULSE 91; RESP 16; TEMP 37; O2SAT 98
--- NOTE | 2024-03-29 12:22 | MHC.RECOVRN ---
Met with pt in the ED after pt expressed interest in ATS. Pt sitting in bed, awake, alert, engages in conversation, does not appear to be experiencing withdrawal. Pt familiar with t/w from consult yesterday. Pt states I feel good. Denies withdrawal symptoms. Last drink Monday 03/26. Educated pt on ATS level of care and explained that pt does not currently meet that level of care. Discussed other recovery supports and resources, including [facility] and the [facility]. Pt is interested in naltrexone and establishing care at the [facility]. Pt agreeable to present as walk-in today. Denies questions or concerns for t/w. Discussed with ED provider and pts RN. Pt dc from ED and t/w escorted pt to the [facility].
== END 2024-03-29 10:34 | disposition home or self-care (01) ==
PROVIDERS: Emergency Provider Emergency Medicine; PCP Internal Medicine
DX: F10.10 Alcohol abuse, uncomplicated (principal); Y90.9 Presence of alcohol in blood, level not specified; F32.A Depression, unspecified; I10 Essential (primary) hypertension; F17.210 Nicotine dependence, cigarettes, uncomplicated
CPT/HCPCS: 80307; 99202; 99282; 99283

== ENCOUNTER 2024-03-29 10:38 | Outpatient (AMB) | payer OTHER, SELFPAY ==
--- NOTE | 2024-03-29 11:16 | A.OFFVISCC_ITS ---
Vital Signs 03/29/24 11:34 BP 140/90 H Blood Pressure Location Lt brachial Position Sitting Respiration 18 Pulse 80 Pulse Source Pulse Oximeter Pulse Oximetry (%) 96 Oxygen Delivery Method Room Air Intake Visit Reasons: Intake Allergies No Known Allergies [No Known Allergies*] Allergy (Verified 03/29/24 07:56) HPI HPI Intake: Details: Patient presents as walk in for evaluation and treatment of alcohol use 1.5 pints of whiskey on the weekends (8months ago) Last drink on Wednesday (1/2 pint) prior to this was drinking natty daddies, but changed due to weight gain increased appetite with beer He reports drinking started after COVID drinks shots with chaser of soda reports no alcohol one weekend recently --was drinking non alcoholic beer Denies any history of treatment Family history of AUD on mother's side Denies any history of seizures started smoking in 2016 PPD currently Reports stomach pain after drinking reports tremors over the weekend denies withdrawal sx during the week denies anxiety sx Reports goal is to stop drinking Social -single, lives alone -family is supportive -currently unemployed -causing issues with parents BH: Psychiatrist [facility] in [place] just started with new provider has been on medications since 2016 -fluoxetine 20mg -risperidone 5mg -Psychiatric admission at [facility] Discussed how to plan for time with no alcohol Discussed medication goals, benefits and limitations Review of Systems Const Reports as per HPI, Reports difficulty sleeping, Reports lethargy, Reports malaise and Reports poor appetite Physical Exam Vital Signs: Last Vital Signs Pulse 80 03/29/24 11:34 Resp 18 03/29/24 11:34 BP 140/90 H 03/29/24 11:34 Pulse Ox 96 03/29/24 11:34 Oxygen Delivery Method Room Air 03/29/24 11:34 Const General: cooperative, no acute distress, anxious and well groomed Results AMB 14 Panel Urine Drug Screen Urine Marijuana (THC) Negative Last Edit by Purnima London on 03/29/24 11 :37 Urine Cocaine Negative Last Edit by Purnima London on 03/29/24 11:37 Urine Morphine Negative Last Edit by Purnima London on 03/29/24 11:37 Urine Methamphetamine Negative Last Edit by Purnima London on 03/29/24 11 :37 Urine Amphetamine Negative Last Edit by Purnima London on 03/29/24 11:37 Urine Benzodiazepine Positive Last Edit by Purnima London on 03/29/24 11: 37 Urine Barbiturates Negative Last Edit by Purnima London on 03/29/24 11:37 Urine Methadone Negative Last Edit by Purnima London on 03/29/24 11:37 Urine Buprenorphine Negative Last Edit by Purnima London on 03/29/24 11:3 7 Urine Tricyclic Antidepressant Negative Last Edit by Purnima London on 03/29/24 11:37 Urine MDMA Negative Last Edit by Purnima London on 03/29/24 11:37 Urine Oxycodone Negative Last Edit by Purnima London on 03/29/24 11:37 Urine Phencyclidine Negative Last Edit by Purnima London on 03/29/24 11:3 7 Urine Propoxyphene Negative Last Edit by Purnima London on 03/29/24 11:37 Results Reviewed Results Reviewed: Laboratory Last Values POC Urine Buprenorphine Negative 03/29/24 11:35 POC Urine Morphine Negative 03/29/24 11:35 POC Urine Oxycodone Negative 03/29/24 11:35 POC Urine Methadone Negative 03/29/24 11:35 POC Urine Propoxyphene Negative 03/29/24 11:35 POC Urine Barbiturates Negative 03/29/24 11:35 POC U Tricyclic Antidpr Negative 03/29/24 11:35 POC Urine PCP Negative 03/29/24 11:35 POC Ur Amphetamines Negative 03/29/24 11:35 POC Ur Methamphetamine Negative 03/29/24 11:35 POC Urine MDMA Negative 03/29/24 11:35 POC Ur Benzodiazepine Positive 03/29/24 11:35 POC Urine Cocaine Negative 03/29/24 11:35 POC Ur Marijuana (THC) Negative 03/29/24 11:35 Assessment & Plan Assessment & Plan (1) Alcohol use disorder, moderate, dependence: Code(s): F10.20 - Alcohol dependence, uncomplicated Category: Medical Plan: * reviewed safer drinking strategies * discussed naltrexone--patient requesting trial * follow up as scheduled Orders: Orders AMB 14 Panel Urine Drug Screen 03/29/24 Z51.81 - Encounter for therapeutic drug level monitoring Medications: New naltrexone take 1/2 tab daily for 3 days then increase to one tab daily 50 mg PO DAILY 30 tabs 0RF PFSH Medical History Depression Social History Housing: Condominium Alcohol intake: current Alcohol intake frequency: a few times a week Patient Tobacco Use Status: Current everyday Tobacco user Cigarette Packs Per Day: 1 Cigarettes Per Day: 20 e-Cigarette/Vaping Use: Never Used service: No Current occupational status: employed Current occupation: [employer] Cognitive needs: No Hearing needs: No Vision needs: No
[2024-03-29 11:34] VITALS: BP 140/90; PULSE 80; RESP 18; O2SAT 96
== END 2024-03-29 11:45 | disposition home or self-care (01) ==
LOC: HO.HCC 10:39
PROVIDERS: PCP Internal Medicine; Visit Provider Nurse Practitioner Psychiatric/Mental Health
DX: F10.20 Alcohol dependence, uncomplicated (principal)
CPT/HCPCS: 99204

== ENCOUNTER 2024-04-14 09:28 | Outpatient (AMB) | payer OTHER, SELFPAY ==
--- NOTE | 2024-04-14 09:36 | A.OFFVISCC_ITS ---
Intake Visit Reasons: MAT Allergies No Known Allergies [No Known Allergies*] Allergy (Verified 03/29/24 07:56) HPI HPI MAT: Details: Patient presents for follow up Taking Naltrexone 50mg daily--denies side effects Finding it beneficial with decreasing cravings Drank over the weekend 1.5 pints over the weekend (2 days in a row) Not eating very much Review of Systems Const Reports as per HPI Physical Exam Const General: cooperative, healthy appearing, anxious and well groomed Nutritional Appearance: average body habitus Orientation/consciousness: patient oriented x3 Limitations: no limitations Neuro General: patient oriented x3 Assessment & Plan Assessment & Plan (1) Alcohol use disorder, moderate, dependence: Code(s): F10.20 - Alcohol dependence, uncomplicated Category: Medical Plan: * refilled naltrexone * education related to reducing risk with continuing alcohol use, including taking vitamins which were ordered today * follow up 4 weeks Medications: New thiamine HCl (vitamin B1) 100 mg PO DAILY 90 tabs 0RF folic acid 1 mg PO DAILY 90 tabs 0RF Changed From naltrexone take 1/2 tab daily for 3 days then increase to one tab daily 50 mg PO DAILY 30 tabs 0RF To naltrexone 50 mg PO BID 60 tabs 1RF PFSH Medical History Depression Social History Housing: Condominium Alcohol intake: current Alcohol intake frequency: a few times a week Patient Tobacco Use Status: Current everyday Tobacco user Cigarette Packs Per Day: 1 Cigarettes Per Day: 20 e-Cigarette/Vaping Use: Never Used service: No Current occupational status: employed Current occupation: [employer] Cognitive needs: No Hearing needs: No Vision needs: No
== END 2024-04-14 09:46 | disposition home or self-care (01) ==
PROVIDERS: PCP Internal Medicine; Visit Provider Nurse Practitioner Psychiatric/Mental Health
DX: F10.20 Alcohol dependence, uncomplicated (principal)
CPT/HCPCS: 99214

== ENCOUNTER → 2024-04-14 09:28 | Outpatient (BNVA) | payer OTHER, SELFPAY | PROVIDERS: PCP Internal Medicine; Visit Provider Nurse Practitioner Psychiatric/Mental Health | DX: F10.20 Alcohol dependence, uncomplicated (principal) | CPT/HCPCS: 99212 ==

== ENCOUNTER 2024-05-30 13:30 | Outpatient (AMB) | payer OTHER, SELFPAY ==
[2024-05-30 13:32] VITALS: BP 142/96; PULSE 63; O2SAT 96; BMI 37.1
--- NOTE | 2024-05-30 13:32 | A.OFFPC_ITS ---
Vital Signs 05/30/24 13:32 Height 5 ft 5 in Weight 223 lb BMI 37.1 BP 142/96 H Blood Pressure Location Rt brachial Position Sitting Pulse 63 Pulse Source Pulse Oximeter Pulse Oximetry (%) 96 Oxygen Delivery Method Room Air Intake Visit Reasons: 3 months f/up Allergies No Known Allergies [No Known Allergies*] Allergy (Verified 05/30/24 13:32) Medication List - Last Reconciled 05/30/24 by Jai Beltran MD atenolol 25 mg PO DAILY fluoxetine 20 mg PO BID 90 days folic acid 1 mg PO DAILY naltrexone 50 mg PO BID risperidone 3 mg PO DAILY thiamine HCl (vitamin B1) 100 mg PO DAILY Tobacco use date assessed: 05/30/24 Dental Screening Dental Screen Date: 05/30/24 Did you have a dental visit in the last 12 months?: No Did you have a dental problem in the last 6 months where you did not have access to dental care?: No Was dental information given to patient?: No HPI 3 months f/up HPI Details History of Present Illness - The patient is a 58-year-old male pres enting for medication management for hypertension. And other medical problems - Previously discontinued atenolol on hi s own, resumed two weeks ago, with noted high blood pressure, leading to consideration of a dosage adjustment. - Also managing concurrent depression an d anxiety with fluoxetine and risperidone. Through psychiatrist - Concerns include weight management and a recent cholesterol alert by his psychiatrist, requiring further assessment. Order placed for labs to be done fasting before next visit in August Review of Systems - Cardiovascular: Reports persistently e levated blood pressure. - Psychiatric: Reports ongoing depressio n and anxiety. - Endocrine/Metabolic: Reports high chol esterol as noted by psychiatrist. - General: No fever no chills - Neurological: No headaches no dizziness - Ear nose throat: No sore throat no hearing difficulty no ear pain - Cardiovascular: No syncope, no chest pain, no palpitations - Gastrointestinal: No nausea vomiting or diarrhea - Endocrine: No polyuria polydipsia no heat intolerance - Genitourinary: No dysuria , no blood in urine Physical Exam - General: No acute distress - HEENT: No acute findings - Neck: Supple - Respiratory system: Able to talk in f ull sentences, no audible wheeze - cardiovascular: S1-S2 regular in rat e and rhythm - Gastrointestinal: No pain - Extremities: No new findings - PROTECTION SPECIALIST: Alert awake oriented x3 motor se nsory intact - Skin: Normal turgor Patient Instructions - Continue taking atenolol as prescribed ; dosage is to be adjusted after today?s visit. To 50 mg from 25 - Perform blood tests before the next ap pointment in three months to monitor liver function, kidney function, and cholesterol levels. - Attempt to reduce smoking since it is expensive and affects overall health; aim for cutting down the number of cigarettes daily. - Follow up with a healthcare provider t o evaluate and manage cholesterol if elevated after the next blood test. - Remember to fast before the blood test , but coffee without milk and sugar is permissible. -need to lose weight PFSH Medical History Depression Social History Housing: [facility] Alcohol intake: current Alcohol intake frequency: a few times a week Patient Tobacco Use Status: Current everyday Tobacco user Cigarette Packs Per Day: 1 Cigarettes Per Day: 20 e-Cigarette/Vaping Use: Never Used service: No Current occupational status: employed Current occupation: [employer] Cognitive needs: No Hearing needs: No Vision needs: No Questionnaire PHQ-9 Over the last 2 weeks, how often have you been bothered by any of the following problems? 1. Little interest or pleasure in doing things: not at all 2. Feeling down, depressed, or hopeless: more than half the days 3. Trouble falling or staying asleep, or sleeping too much: more than half the days 4. Feeling tired or having little energy: not at all 5. Poor appetite or overeating: nearly every day 6. Feeling bad about yourself - or that you are a failure or have let yourself or your family down: more than half the days 7. Trouble concentrating on things, such as reading the newspaper or watching television: more than half the days 8. Moving or speaking so slowly that other people could have noticed. Or the opposite - being so fidgety or restless that you have been moving around a lot more than usual: nearly every day 9. Thoughts that you would be better off or of hurting yourself in some way: nearly every day Total score: 17 Depression Screening Interpretation: Positive Depression Screening Follow-up: Existing condition and In treatment Depression Screening Done: Yes 98478 - PHQ-9 Billing: Yes Source: Developed by Drs. Miguel Luis, Angelica Mark, Du Villa and colleagues, with an educational mirlande from [employer]. Thrive Questionnaire Date Thrive assessed: 05/30/24 I am a: Patient What is your living situation today?: I have a place to live, but I am worried about losing it in the future Within the past 12 months, did the food you bought not last and you didn't have the money to get more?: Sometimes True Within the past 12 months, did you worry whether your food would run out before you got money to buy more?: Sometimes True Do you have trouble paying for medicines?: No Do you have trouble getting transportation to medical appointments?: No Do you have trouble paying your heating and electricity bill?: No Do you have trouble taking care of your child, family member or friend?: No Do you have trouble with day-to-day activities such as bathing, preparing meals, shopping, managing finances, etc.?: No Are you currently unemployed and looking for a job?: Yes Are you interested in more education?: No Please select the resources that you would like help with: None Currently or been in a relationship where the following occur: No concerns reported THRIVE Score: 3 AUDIT C Alcohol Use Questionnaire (AUDIT-C) 1. How often do you have a drink containing alcohol?: Monthly or less 2. How many drinks containing alcohol do you have on a typical day when you are drinking?: 3 or 4 3. How often do you have six or more drinks on one occasion?: Never Total Score: 2 Score Reviewed/Action Taken: Yes MIKY-7 AMB Questionnaire MIKY-7 Date MIKY - 7 assessed: 05/30/24 Feeling nervous, anxious, or on edge: 2 = More than half the days Not being able to stop or control worryin = More than half the days Worrying too much about different things: 3 = Nearly every day Trouble relaxin = More than half the days Being so restless that it is hard to sit still: 2 = More than half the days Becoming easily annoyed or irritable: 0 = Not at all Feeling afraid as if something awful might happen: 3 = Nearly every day Total MIKY-7 score (0-4 normal; 5-9 mild; 10-14 moderate; 15-21 severe): 14 Source: Developed by Drs. Miguel Luis, Angelica Mark, Du Villa and colleagues, with an educational mirlande from [employer]. MIKY-7 Assessment Billing MIKY-7 Assessment Tool: MIKY-7 Assessment 01550 Physical exam (Primary Care) Vital Signs: Last Vital Signs Pulse 63 05/30/24 13:32 BP 142/96 H 05/30/24 13:32 Pulse Ox 96 05/30/24 13:32 Oxygen Delivery Method Room Air 05/30/24 13:32 BMI result Body Mass Index 37.1 Tobacco/Smoking Status: Tobacco use Status Tobacco use date assessed 05/30/24 05/30/24 13:36 Patient Tobacco Use Status Current everyday Tobacco 05/30/24 13:36 e-Cigarette/Vaping Use Never Used 05/30/24 13:36 PHQ-9: PHQ-9 Score PHQ-9: Total score 17 05/30/24 13:36 Depression Screening Interpretation: Positive Depression Screening Follow-up: Existing condition and In treatment Thrive Assessment: Date of Thrive Assessment Date Thrive assessed 05/30/24 05/30/24 13:36 Currently or been in a relationship where the following occur: No concerns reported Coding Level of Care Code Est Pt Level 3 (62704) Complex EM visit Add On G2211 Diagnoses Hypertension, essential I10 Tobacco abuse Z72.0 Class 2 obesity due to excess calories without serious comorbidity with body mass index (BMI) of 37.0 to 37.9 in adult E66.09; Z68.37 Obesity classification: adult class 2 (BMI 35 - 39.9) Serious obesity comorbidity presence: without serious comorbidity Body mass index: BMI 37.0-37.9 Paranoid disorder F22 Obsessive-compulsive disorder, unspecified type F42.9 Obsessive-compulsive disorder type: unspecified Additional Codes MIKY-7 Assessment Billing - MIKY-7 Assessment Tool: MIKY-7 Assessment 70929 ([id number]) PHQ-9 - 74132 - PHQ-9 Billing: Yes ([id number]) Assessment & Plan Assessment & Plan (1) Hypertension, essential: Code(s): I10 - Essential (primary) hypertension Category: Medical (2) Tobacco abuse: Code(s): Z72.0 - Tobacco use Category: Medical (3) Obesity due to excess calories: Code(s): E66.09 - Other obesity due to excess calories Category: Medical Qualifiers: Obesity classification: adult class 2 (BMI 35 - 39.9) Serious obesity comorbidity presence: without serious comorbidity Body mass index: BMI 37.0- 37.9 Qualified Code(s): E66.09 - Other obesity due to excess calories; Z68.37 - Body mass index [BMI] 37.0-37.9, adult (4) Paranoid disorder: Code(s): F22 - Delusional disorders Category: Medical (5) OCD (obsessive compulsive disorder): Code(s): F42.9 - Obsessive-compulsive disorder, unspecified Category: Medical Qualifiers: Obsessive-compulsive disorder type: unspecified Qualified Code(s): F42.9 - Obsessive-compulsive disorder, unspecified Plan History of Present Illness - The patient is a 58-year-old male presenting for medication management for hypertension. And other medical problems - Previously discontinued atenolol on his own, resumed two weeks ago, with noted high blood pressure, leading to consideration of a dosage adjustment. - Also managing concurrent depression and anxiety with fluoxetine and risperidone. Through psychiatrist - Concerns include weight management and a recent cholesterol alert by his psychiatrist, requiring further assessment. Order placed for labs to be done fasting before next visit in August Review of Systems - Cardiovascular: Reports persistently elevated blood pressure. - Psychiatric: Reports ongoing depression and anxiety. - Endocrine/Metabolic: Reports high cholesterol as noted by psychiatrist. - General: No fever no chills - Neurological: No headaches no dizziness - Ear nose throat: No sore throat no hearing difficulty no ear pain - Cardiovascular: No syncope, no chest pain, no palpitations - Gastrointestinal: No nausea vomiting or diarrhea - Endocrine: No polyuria polydipsia no heat intolerance - Genitourinary: No dysuria , no blood in urine Physical Exam - General: No acute distress - HEENT: No acute findings - Neck: Supple - Respiratory system: Able to talk in full sentences, no audible wheeze - cardiovascular: S1-S2 regular in rate and rhythm - Gastrointestinal: No pain - Extremities: No new findings - PROTECTION SPECIALIST: Alert awake oriented x3 motor sensory intact - Skin: Normal turgor Patient Instructions - Continue taking atenolol as prescribed; dosage is to be adjusted after today?s visit. To 50 mg from 25 - Perform blood tests before the next appointment in three months to monitor liver function, kidney function, and cholesterol levels. - Attempt to reduce smoking since it is expensive and affects overall health; aim for cutting down the number of cigarettes daily. - Follow up with a healthcare provider to evaluate and manage cholesterol if elevated after the next blood test. - Remember to fast before the blood test, but coffee without milk and sugar is permissible. -need to lose weight Orders: Orders Complete Blood Count Auto Diff Today E66.09 - Other obesity due to excess calories, F22 - Delusional disorders, F42.9 - Obsessive-compulsive disorder, unspecified, I10 - Essential (primary) hypertension, Z68.37 - Body mass index [BMI] 37.0-37.9, adult, Z72.0 - Tobacco use Comprehensive [place]. Panel Fast Today E66.09 - Other obesity due to excess calories, F22 - Delusional disorders, F42.9 - Obsessive-compulsive disorder, unspecified, I10 - Essential (primary) hypertension, Z68.37 - Body mass index [BMI] 37.0-37.9, adult, Z72.0 - Tobacco use Lipid Panel Today E66.09 - Other obesity due to excess calories, F22 - Delusional disorders, F42.9 - Obsessive-compulsive disorder, unspecified, I10 - Essential (primary) hypertension, Z68.37 - Body mass index [BMI] 37.0-37.9, adult, Z72.0 - Tobacco use TSH reflex Free T4 Today E66.09 - Other obesity due to excess calories, F22 - Delusional disorders, F42.9 - Obsessive-compulsive disorder, unspecified, I10 - Essential (primary) hypertension, Z68.37 - Body mass index [BMI] 37.0-37.9, adult, Z72.0 - Tobacco use Medications: Changed From atenolol 25 mg PO DAILY 90 tabs 0RF High blood pressure To atenolol 50 mg PO DAILY 90 tabs 1RF High blood pressure
== END 2024-05-30 14:17 | disposition home or self-care (01) ==
PROVIDERS: PCP Internal Medicine; Visit Provider Internal Medicine
DX: I10 Essential (primary) hypertension (principal); F22 Delusional disorders; E66.812 Obesity, class 2; Z68.37 Body mass index [BMI] 37.0-37.9, adult; Z72.0 Tobacco use; F42.9 Obsessive-compulsive disorder, unspecified

== ENCOUNTER → 2024-05-30 13:30 | Outpatient (BNVA) | payer OTHER, SELFPAY | PROVIDERS: PCP Internal Medicine; Visit Provider Internal Medicine | DX: I10 Essential (primary) hypertension (principal); E66.09 Other obesity due to excess calories; Z68.37 Body mass index [BMI] 37.0-37.9, adult; F22 Delusional disorders; F42.9 Obsessive-compulsive disorder, unspecified; Z72.0 Tobacco use; Z71.6 Tobacco abuse counseling; Z71.3 Dietary counseling and surveillance | CPT/HCPCS: 96127; 99212 ==

== ENCOUNTER 2024-08-07 10:34 | Emergency (ER) | payer OTHER, SELFPAY ==
--- NOTE | ~2024-08-07 | CT_ITS ---
CLINICAL HISTORY: Abdominal pain CT abdomen and pelvis with contrast Comparison: CT/ND/SR - CT ABDOMEN PELVIS W IV CON - 03/28/24 10:53 EST Findings: There is mild bibasilar atelectasis. There is a small cyst in the left lobe of the liver. There is mild hepatic steatosis. The gallbladder, pancreas, spleen, and adrenal glands are unremarkable. There is a left renal cyst. There is a tiny cyst in the right kidney. The appendix is normal. There is fluid within the colon including the rectum suggestive of diarrhea. There is no evidence of colitis. There is no free fluid or free air. The aorta is normal in diameter. There are no enlarged lymph nodes. There are stable mild T11 and T12 compression fractures. There are mild degenerative changes of the lumbar spine. There is no acute fracture or suspicious lytic or sclerotic lesion. There is an incidental hemangioma in L2 vertebral body. IMPRESSION: 1. Fluid within the colon including the rectum suggestive of a diarrheal illness. No evidence of colitis. 2. Chronic findings as above. This document has been electronically signed by: Dawson Clemons MD on 08/07/2024 18:58:03
[2024-08-07 11:10] VITALS: BP 157/103; PULSE 81; RESP 20; TEMP 37; O2SAT 98; BMI 35.9
--- NOTE | 2024-08-07 11:11 | ED.GENADULT ---
HPI - General Adult General Chief complaint: Abdominal Pain Stated complaint: stomach pain 4 days Time Seen by Provider: 08/07/24 15:36 Related Data Previous Rx's ?Medication ?Instructions ?Recorded fluoxetine 20 mg capsule 20 mg PO BID 90 days #180 caps 12/01/22 risperidone 3 mg tablet 3 mg PO DAILY #30 tabs 12/01/22 folic acid 1 mg tablet 1 mg PO DAILY #90 tabs 04/14/24 naltrexone 50 mg tablet 50 mg PO BID #60 tabs 04/14/24 thiamine HCl (vitamin B1) 100 mg 100 mg PO DAILY #90 tabs 04/14/24 tablet atenolol 50 mg tablet 50 mg PO DAILY High blood pressure 05/30/24 #90 tabs pantoprazole 40 mg tablet,delayed 40 mg PO DAILY Gastritis #90 tabs 08/09/24 release sucralfate 100 mg/mL oral 5 ml PO QID Gastritis 30 days #600 08/09/24 suspension (Carafate) mL Allergies Allergy/AdvReac Type Severity Reaction Status Date / Time No Known Allergies Allergy Verified 08/09/24 10:15 [No Known Allergies*] [facility] Past Medical History Medical History Depression Social History Social History Housing: Condominium Alcohol intake: current Alcohol intake frequency: a few times a week Patient Tobacco Use Status: Current everyday Tobacco user Cigarette Packs Per Day: 1 Cigarettes Per Day: 20 e-Cigarette/Vaping Use: Never Used service: No Current occupational status: employed Current occupation: [employer] Cognitive needs: No Hearing needs: No Vision needs: No Physical Exam ED Vital Signs: BMI result Body Mass Index 35.9 Course Course Course Narrative: This is a rapid medical exam performed by Cindy Khan NP: Additional HPI, ROS, PE not included below will be deferred to primary provider. Patient is a 58-year-old male presenting with abdominal pain and bloating for the past few days. States even water will exacerbate his symptoms. Denies nausea, vomiting, diarrhea. Admits to drinking alcohol 2-3x/week. Denies history of alcohol withdrawal. Plan: labs Medications Administered Discontinued Medications Generic Name Dose Route Start Last Admin Trade Name Freq PRN Reason Stop Dose Admin Sodium Chloride 1,000 mls @ 999 mls/hr 08/07/24 20:00 08/07/24 21:12 Ns IVCONT 08/07/24 21:00 Infused .Q1H1M ADAM Infusion Iohexol 85 ml 08/07/24 18:03 08/07/24 18:03 Iohexol 350 Mg/Ml 100 Ml Infus..Btl IV 08/07/24 18:04 85 ml ONCE ONE Administration Pantoprazole Sodium 40 mg 08/07/24 15:39 08/07/24 16:57 Pantoprazole Sodium 40 Mg/10 Ml Vial IVPUSH 08/07/24 15:40 40 mg ONCE ONE Administration Sucralfate 1 gm 08/07/24 21:31 08/07/24 21:44 Sucralfate Oral Suspension 1 Gm/10 Ml Oral.Susp PO 08/07/24 21:32 1 gm ONCE ONE Administration Medical Decision Making Lab Data 08/07/24 11:37 08/07/24 11:37 Labs: Lab Results 08/07/24 Range/Units 11:37 WBC 10.4 (4.8-10.8) X10*3/uL RBC 5.11 (4.60-5.80) X10*6/uL Hgb 16.5 (14.0-18.0) g/dl Hct 46.1 (42.0-52.0) % MCV 90.2 (80.0-98.0) fL MCH 32.3 (27.0-33.0) pg MCHC 35.8 (31.0-36.0) g/dl RDW 11.8 (11.0-16.0) % Plt Count 259 (160-400) X10*3/uL MPV 10.1 (9.4-12.4) fL Immature Gran % (Auto) 0.3 (0.0-0.4) % Neut % (Auto) 75.2 H (45-73) % Lymph % (Auto) 16.2 L (20-40) % Woods % (Auto) 6.7 (2-11) % Eos % (Auto) 1.0 (0-4) % Baso % (Auto) 0.6 (0-2) % Lymph # (Auto) 1.7 (1.2-4.9) X10*3/uL Woods # (Auto) 0.7 (0.1-1.2) X10*3/uL Eos # (Auto) 0.1 (0.0-0.4) X10*3/uL Baso # (Auto) 0.1 (0.0-0.2) X10*3/uL Abs Immat Gran (auto) 0.03 (0.00-0.03) X10*3/uL Absolute Neuts (auto) 7.9 (2.0-8.3) x10*3/uL Absolute Nucleated RBC 0.000 (0.0-0.012) X10*3/uL Nucleated RBC % (auto) 0.0 (0.0-0.2) /100WBC Sodium 133 L (135-145) mmol/L Potassium 4.1 (3.3-5.1) mmol/L Chloride 106 (96-108) mmol/L Carbon Dioxide 18 L (22-29) mmol/L Anion Gap 13 (12-20) BUN 12 (9-16) mg/dL Creatinine 0.90 (0.5-1.4) mg/dL Estim Creat Clear Calc 101.9 Estimated GFR > 60 Random Glucose 93 (60-115) mg/dL Calcium 9.2 (8.4-10.2) mg/dL Magnesium 1.8 (1.6-2.6) mg/dL Total Bilirubin 1.1 H (0.0-1.0) mg/dL AST 32 (5-37) U/L ALT 47 H (0-40) U/L Alkaline Phosphatase 55 (39-117) U/L Total Protein 8.1 H (6.5-8.0) g/dL Albumin 4.3 (3.5-5.0) g/dL Lipase 9 (8-78) U/L Influenza Type A (PCR) NEGATIVE (Negative) Influenza Type B (PCR) NEGATIVE (Negative) RSV RNA Qual (PCR) NEGATIVE (Negative) SARS-CoV-2 RNA (RT-PCR) NEGATIVE (Negative) Discharge Plan Discharge Clinical Impression: Abdominal pain Patient Disposition: Home, Self-Care Instructions: Abdominal Pain (ED) Additional Instructions: Follow-up with your primary care physician stay on liquid diet, return if worse Prescriptions: No Action fluoxetine 20 mg capsule 20 mg PO BID 90 Days Qty: 180 0RF risperidone 3 mg tablet 3 mg PO DAILY Qty: 30 0RF atenolol 50 mg tablet 50 mg PO DAILY Qty: 90 1RF thiamine HCl (vitamin B1) 100 mg tablet 100 mg PO DAILY Qty: 90 0RF folic acid 1 mg tablet 1 mg PO DAILY Qty: 90 0RF naltrexone 50 mg tablet 50 mg PO BID Qty: 60 1RF pantoprazole 40 mg tablet,delayed release (DR/EC) 40 mg PO DAILY Qty: 90 0RF sucralfate [Carafate] 100 mg/mL suspension 5 ml PO QID 30 Days Qty: 600 0RF Rx Instructions: swish in mouth and swallow; use after food/drink Referrals: Jai Beltran MD [Primary Care Provider] - 2 days Interventions: ED Discharge Assessment Last Done: 08/07/24 21:51 Discharge Date/Time: 08/07/24 21:51 Print Language: Turkmen
[2024-08-07 11:41] LABS: MANUAL DIFF FLAG NO
[2024-08-07 11:43] LABS: Basophils Absolute Auto 0.1 X10*3/uL (0.0-0.2); Basophils Percent Auto 0.6 % (0-2); Eosinophils Absolute Auto 0.1 X10*3/uL (0.0-0.4); Hematocrit 46.1 % (42.0-52.0); Hemoglobin 16.5 g/dl (14.0-18.0); Imm Gran Abs Auto 0.03 X10*3/uL (0.00-0.03); Imm Gran Pct Auto 0.3 % (0.0-0.4); Lymphocytes Absolute Auto 1.7 X10*3/uL (1.2-4.9); Lymphocytes Percent Auto 16.2 % (20-40); Mean Corpuscular HGB Conc 35.8 g/dl (31.0-36.0); Mean Corpuscular Hemoglobin 32.3 pg (27.0-33.0); Mean Corpuscular Volume 90.2 fL (80.0-98.0); Mean Platelet Volume 10.1 fL (9.4-12.4); Monocytes Absolute Auto 0.7 X10*3/uL (0.1-1.2); Monocytes Percent Auto 6.7 % (2-11); Neutrophils Absolute Auto 7.9 x10*3/uL (2.0-8.3); Neutrophils Percent Auto 75.2 % (45-73); Platelet Count 259 X10*3/uL (160-400); Red Blood Count 5.11 X10*6/uL (4.60-5.80); Red Cell Distribution Width 11.8 % (11.0-16.0); White Blood Count 10.4 X10*3/uL (4.8-10.8)
[2024-08-07 12:01] LABS: Alanine Aminotransferase 47 U/L (0-40); Albumin Level 4.3 g/dL (3.5-5.0); Alkaline Phosphatase 55 U/L (39-117); Anion Gap 13 (12-20); Aspartate Amino Transferase 32 U/L (5-37); Bilirubin Total 1.1 mg/dL (0.0-1.0); Blood Urea Nitrogen 12 mg/dL (9-16); Calcium 9.2 mg/dL (8.4-10.2); Carbon Dioxide 18 mmol/L (22-29); Chloride 106 mmol/L (96-108); Creatinine Clr Calc Pharmacy 101.9; Estimated Glomerular Filt Rate > 60; Glucose Random 93 mg/dL (60-115); Lipase 9 U/L (8-78); Magnesium 1.8 mg/dL (1.6-2.6); Potassium 4.1 mmol/L (3.3-5.1); Sodium 133 mmol/L (135-145); Total Protein 8.1 g/dL (6.5-8.0)
[2024-08-07 12:27] LABS: Influenza A PCR NEGATIVE (Negative); Influenza B PCR NEGATIVE (Negative); Resp Syncy Virus RNA Qual PCR NEGATIVE (Negative); SARS COV2 PCR INHOUSE NEGATIVE (Negative)
[2024-08-07 15:33] VITALS: BP 170/97; PULSE 68; RESP 18; TEMP 36.6; O2SAT 96
--- NOTE | 2024-08-07 15:39 | ED.ABDPAIN ---
HPI - Abdominal Pain General Chief Complaint: Abdominal Pain Stated Complaint: stomach pain 4 days Time Seen by Provider: 08/07/24 15:36 Source: patient Mode of arrival: ambulatory Limitations: no limitations History of Present Illness HPI narrative: This is a 58 years old male presented to the emergency department with a chief complaint of abdominal pain. Pain started about 4 days ago, denies any nausea vomiting diarrhea bloody stools. Patient denies history of alcohol abuse last drink was on Wednesday. MD elicited complaint: abdominal pain Pertinent past history: other (ETOH abuse) Onset (ago): day(s) (4) Pain Consistency: constant Location: epigastric Severity: mild Quality: cramping Radiation: epigastric Migration to: no migration Exacerbating factors: nothing Relieving factors: nothing Associated symptoms: denies other symptoms Related Data Previous Rx's ?Medication ?Instructions ?Recorded fluoxetine 20 mg capsule 20 mg PO BID 90 days #180 caps 12/01/22 risperidone 3 mg tablet 3 mg PO DAILY #30 tabs 12/01/22 folic acid 1 mg tablet 1 mg PO DAILY #90 tabs 04/14/24 naltrexone 50 mg tablet 50 mg PO BID #60 tabs 04/14/24 thiamine HCl (vitamin B1) 100 mg 100 mg PO DAILY #90 tabs 04/14/24 tablet atenolol 50 mg tablet 50 mg PO DAILY High blood pressure 05/30/24 #90 tabs omeprazole magnesium 20 mg 20 mg PO DAILY #30 tabs 08/07/24 tablet,delayed release (Prilosec OTC) Allergies Allergy/AdvReac Type Severity Reaction Status Date / Time No Known Allergies Allergy Verified 08/07/24 11:13 [No Known Allergies*] Review of Systems Constitutional: Reports no additional constitutional complaints Reports system reviewed and no additional complaints, except as documented Gastrointestinal: Reports abdominal pain PMFSH Past Medical History Attestation statement: The following information was validated with the patient. Medical History Depression Social History Social History Housing: Condominium Alcohol intake: current Alcohol intake frequency: a few times a week Patient Tobacco Use Status: Current everyday Tobacco user Cigarette Packs Per Day: 1 Cigarettes Per Day: 20 e-Cigarette/Vaping Use: Never Used Advance Directives: No Advance Directives Information Provided: Yes service: No Current occupational status: employed Current occupation: [employer] Cognitive needs: No Hearing needs: No Vision needs: No Physical Exam ED Vital Signs: Vital Signs - 24 hr 08/07/24 11:10 08/07/24 15:33 08/07/24 18:44 Temperature 98.6 F 97.9 F Pulse Rate 81 68 65 Respiratory Rate 20 18 16 Blood Pressure 157/103 H 170/97 H 164/100 H Pulse Oximetry 98 96 96 Oxygen Delivery Method Room Air Room Air Room Air 08/07/24 18:47 Temperature Pulse Rate 60 Respiratory Rate 18 Blood Pressure 170/92 H Pulse Oximetry 96 Oxygen Delivery Method Room Air BMI result Body Mass Index 35.9 No acute distress Const General: cooperative Orientation/consciousness: oriented to time Limitations: no limitations HENMT Head: Yes normal to inspection General nose exam: Normal external nose present Face and sinus: Yes normal facial exam Mouth: Normal oral and palatal mucosa present Throat: Yes posterior oropharynx normal Neck Neck: Yes normal visual inspection Resp Effort & Inspection: normal respiratory effort Auscultation: clear to auscultation bilaterally Cardio Jugular venous distension: no JVD Rate: regular rate Rhythm: regular rhythm GI Inspection: Yes normal to inspection Palpation (GI): Soft to palpation Auscultation: normal bowel sounds Skin General skin exam: no rashes or lesions noted Lesions: no lesions Rashes: no rashes Neuro General: oriented to time Extrem General: Yes normal to inspection Right lower extremity: normal to inspection Course Reevaluation(s) Reevaluation #1: On re-evaluation he feels much better CT scan was negative labs were normal anticipate discharge likely alcoholic gastritis Time: 21:06 Medical Decision Making Medical Decision Making [facility] Narrative: Patient presented to the emergency department complaining of abdominal pain we will obtain labs imaging and reassess Differential Diagnosis Differential Diagnoses: The differential diagnosis associated with the presentation includes Differential diagnosis colitis/diverticulitis/peptic ulcer disease Admission/Observation Consideration of admission/observation: Escalation of care including admission/observation considered Lab Data [facility] Lab Attestation statement: I reviewed the patient's lab results. 08/07/24 11:37 08/07/24 11:37 Labs: Lab Results 08/07/24 Range/Units 11:37 WBC 10.4 (4.8-10.8) X10*3/uL RBC 5.11 (4.60-5.80) X10*6/uL Hgb 16.5 (14.0-18.0) g/dl Hct 46.1 (42.0-52.0) % MCV 90.2 (80.0-98.0) fL MCH 32.3 (27.0-33.0) pg MCHC 35.8 (31.0-36.0) g/dl RDW 11.8 (11.0-16.0) % Plt Count 259 (160-400) X10*3/uL MPV 10.1 (9.4-12.4) fL Immature Gran % (Auto) 0.3 (0.0-0.4) % Neut % (Auto) 75.2 H (45-73) % Lymph % (Auto) 16.2 L (20-40) % [place] % (Auto) 6.7 (2-11) % Eos % (Auto) 1.0 (0-4) % Baso % (Auto) 0.6 (0-2) % Lymph # (Auto) 1.7 (1.2-4.9) X10*3/uL [place] # (Auto) 0.7 (0.1-1.2) X10*3/uL Eos # (Auto) 0.1 (0.0-0.4) X10*3/uL Baso # (Auto) 0.1 (0.0-0.2) X10*3/uL Abs Immat Gran (auto) 0.03 (0.00-0.03) X10*3/uL Absolute Neuts (auto) 7.9 (2.0-8.3) x10*3/uL Absolute Nucleated RBC 0.000 (0.0-0.012) X10*3/uL Nucleated RBC % (auto) 0.0 (0.0-0.2) /100WBC Sodium 133 L (135-145) mmol/L Potassium 4.1 (3.3-5.1) mmol/L Chloride 106 (96-108) mmol/L Carbon Dioxide 18 L (22-29) mmol/L Anion Gap 13 (12-20) BUN 12 (9-16) mg/dL Creatinine 0.90 (0.5-1.4) mg/dL Estim Creat Clear Calc 101.9 Estimated GFR > 60 Random Glucose 93 (60-115) mg/dL Calcium 9.2 (8.4-10.2) mg/dL Magnesium 1.8 (1.6-2.6) mg/dL Total Bilirubin 1.1 H (0.0-1.0) mg/dL AST 32 (5-37) U/L ALT 47 H (0-40) U/L Alkaline Phosphatase 55 (39-117) U/L Total Protein 8.1 H (6.5-8.0) g/dL Albumin 4.3 (3.5-5.0) g/dL Lipase 9 (8-78) U/L Influenza Type A (PCR) NEGATIVE (Negative) Influenza Type B (PCR) NEGATIVE (Negative) RSV RNA Qual (PCR) NEGATIVE (Negative) SARS-CoV-2 RNA (RT-PCR) NEGATIVE (Negative) Independent Interpretation I performed an independent interpretation of an: CT Scan Prescription Management I considered prescription management with: Other (PPI) Medications Administered Discontinued Medications Generic Name Dose Route Start Last Admin Trade Name Freq PRN Reason Stop Dose Admin Sodium Chloride 1,000 mls @ 999 mls/hr 08/07/24 20:00 08/07/24 20:11 Ns IVCONT 08/07/24 21:00 999 mls/hr .Q1H1M ADAM Administration Iohexol 85 ml 08/07/24 18:03 08/07/24 18:03 Iohexol 350 Mg/Ml 100 Ml Infus..Btl IV 08/07/24 18:04 85 ml ONCE ONE Administration Pantoprazole Sodium 40 mg 08/07/24 15:39 08/07/24 16:57 Pantoprazole Sodium 40 Mg/10 Ml Vial IVPUSH 08/07/24 15:40 40 mg ONCE ONE Administration Discharge Plan Discharge Clinical Impression: Abdominal pain Qualifiers: Abdominal location: epigastric Qualified Code(s): R10.13 - Epigastric pain Patient Disposition: Home, Self-Care Instructions: Abdominal Pain (ED) Additional Instructions: Follow-up with your primary care physician stay on liquid diet, return if worse Prescriptions: New omeprazole magnesium [Prilosec OTC] 20 mg tablet,delayed release (DR/EC) 20 mg PO DAILY Qty: 30 0RF No Action fluoxetine 20 mg capsule 20 mg PO BID 90 Days Qty: 180 0RF risperidone 3 mg tablet 3 mg PO DAILY Qty: 30 0RF atenolol 50 mg tablet 50 mg PO DAILY Qty: 90 1RF thiamine HCl (vitamin B1) 100 mg tablet 100 mg PO DAILY Qty: 90 0RF folic acid 1 mg tablet 1 mg PO DAILY Qty: 90 0RF naltrexone 50 mg tablet 50 mg PO BID Qty: 60 1RF Referrals: Jai Beltran MD [Primary Care Provider] - 2 days Print Language: Macedonian
[2024-08-07] MEDS: Pantoprazole Sodium 40 MG/10 ML VIAL IVPUSH (16:57)
[2024-08-07] MEDS: iohexoL 350 MG/ML 100 ML INFUS..BTL 85 ML IV (18:03)
[2024-08-07 18:44] VITALS: BP 164/100; PULSE 65; RESP 16; O2SAT 96
[2024-08-07 18:47] VITALS: BP 170/92; PULSE 60; RESP 18; O2SAT 96
[2024-08-07] MEDS: 0.9 % Sodium Chloride 1,000 ML 999 ML IVCONT (20:11)
[2024-08-07 20:58] VITALS: BP 154/82; PULSE 60; RESP 14; TEMP 36.7; O2SAT 99
[2024-08-07] MEDS: Sucralfate Oral Suspension 1 GM/10 ML ORAL.SUSP PO (21:44)
[2024-08-07 21:51] VITALS: BP 154/82; PULSE 60; RESP 14; TEMP 36.7; O2SAT 99
== END 2024-08-07 21:51 | disposition home or self-care (01) ==
PROVIDERS: Registered Nurse Emergency; Emergency Provider Emergency Medicine; PCP Internal Medicine
DX: R10.13 Epigastric pain (principal); R14.0 Abdominal distension (gaseous); F17.210 Nicotine dependence, cigarettes, uncomplicated; Z79.899 Other long term (current) drug therapy; Z03.818 Encounter for observation for suspected exposure to other biological agents ruled out
CPT/HCPCS: 0241U; 74177; 80053; 83690; 83735; 85025; 96361; 96374; 99284; J2470; Q9967

== ENCOUNTER → 2024-08-07 15:38 | Outpatient (BNV) | payer OTHER, SELFPAY | PROVIDERS: Emergency Provider Emergency Medicine; PCP Internal Medicine; Visit Provider Radiology Diagnostic Radiology | DX: R10.9 Unspecified abdominal pain (principal) | CPT/HCPCS: 74177 ==

== ENCOUNTER 2024-08-08 09:53 | Outpatient (REF) | payer OTHER, SELFPAY ==
[2024-08-08 13:00] LABS: MANUAL DIFF FLAG NO
[2024-08-08 13:27] LABS: Basophils Absolute Auto 0.1 X10*3/uL (0.0-0.2); Basophils Percent Auto 0.6 % (0-2); Eosinophils Absolute Auto 0.2 X10*3/uL (0.0-0.4); Eosinophils Percent Auto 1.7 % (0-4); Hematocrit 44.7 % (42.0-52.0); Hemoglobin 15.7 g/dl (14.0-18.0); Imm Gran Abs Auto 0.05 X10*3/uL (0.00-0.03); Imm Gran Pct Auto 0.5 % (0.0-0.4); Lymphocytes Absolute Auto 1.9 X10*3/uL (1.2-4.9); Lymphocytes Percent Auto 18.2 % (20-40); Mean Corpuscular HGB Conc 35.1 g/dl (31.0-36.0); Mean Corpuscular Hemoglobin 32.1 pg (27.0-33.0); Mean Corpuscular Volume 91.4 fL (80.0-98.0); Mean Platelet Volume 10.9 fL (9.4-12.4); Monocytes Absolute Auto 0.8 X10*3/uL (0.1-1.2); Monocytes Percent Auto 7.3 % (2-11); Neutrophils Absolute Auto 7.5 x10*3/uL (2.0-8.3); Neutrophils Percent Auto 71.7 % (45-73); Platelet Count 267 X10*3/uL (160-400); Red Blood Count 4.89 X10*6/uL (4.60-5.80); Red Cell Distribution Width 11.9 % (11.0-16.0); White Blood Count 10.5 X10*3/uL (4.8-10.8)
[2024-08-08 14:00] LABS: Alanine Aminotransferase 46 U/L (0-40); Albumin Level 4.2 g/dL (3.5-5.0); Alkaline Phosphatase 58 U/L (39-117); Anion Gap 13 (12-20); Aspartate Amino Transferase 35 U/L (5-37); Blood Urea Nitrogen 11 mg/dL (9-16); Calcium 9.2 mg/dL (8.4-10.2); Carbon Dioxide 20 mmol/L (22-29); Chloride 106 mmol/L (96-108); Cholesterol 184 mg/dL (<200); Estimated Glomerular Filt Rate > 60; Glucose Fasting 90 mg/dL (60-99); HDL Cholesterol 40 mg/dL (>40); LDL Cholesterol Calculated 125 mg/dL (<100); Potassium 4.2 mmol/L (3.3-5.1); Sodium 135 mmol/L (135-145); Total Protein 7.8 g/dL (6.5-8.0); Triglycerides 99 mg/dL (<150)
== END 2024-08-08 09:54 | disposition home or self-care (01) ==
LOC: HO.HMGCLDS 09:53
PROVIDERS: PCP Internal Medicine; Visit Provider Internal Medicine
DX: F42.9 Obsessive-compulsive disorder, unspecified (principal); F22 Delusional disorders; E66.09 Other obesity due to excess calories; Z68.37 Body mass index [BMI] 37.0-37.9, adult; Z72.0 Tobacco use; I10 Essential (primary) hypertension
CPT/HCPCS: 36415; 80053; 80061; 84443; 85025

== ENCOUNTER 2024-08-09 10:09 | Outpatient (AMB) | payer OTHER, SELFPAY ==
[2024-08-09 10:13] VITALS: BP 146/100; PULSE 68; TEMP 36.8; O2SAT 99; BMI 35.5
--- NOTE | 2024-08-09 10:13 | MHC.PC.OV ---
Vital Signs 08/09/24 10:13 Height 5 ft 6 in Weight 220 lb 2 oz BMI 35.5 BP 146/100 H Blood Pressure Location Rt brachial Position Sitting Pulse 68 Pulse Source Pulse Oximeter Temp 98.2 F Temp Source Oral Pulse Oximetry (%) 99 Oxygen Delivery Method Room Air Intake Visit Reasons: stomach issues Allergies No Known Allergies [No Known Allergies*] Allergy (Verified 08/09/24 10:15) Medication List - Last Reconciled 08/09/24 by Jai Beltran MD atenolol 50 mg PO DAILY fluoxetine 20 mg PO BID 90 days folic acid 1 mg PO DAILY naltrexone 50 mg PO BID omeprazole magnesium (Prilosec OTC) 20 mg PO DAILY risperidone 3 mg PO DAILY thiamine HCl (vitamin B1) 100 mg PO DAILY Tobacco use date assessed: 08/09/24 Dental Screening Dental Screen Date: 08/09/24 Did you have a dental visit in the last 12 months?: No Did you have a dental problem in the last 6 months where you did not have access to dental care?: No Was dental information given to patient?: Patient declined HPI stomach issues HPI Details Patient is a 58-year-old gentleman who presented to [facility] Emergency room on this with a chief complaint of abdominal pain which started 4 days prior to arrival Without any nausea vomiting or diarrhea. On examination his abdomen was soft to palpation with normal bowel sounds Patient had CT scan of abdomen done which was negative labs showed sodium of 133 He admitted to drinking alcohol few days prior Patient was discharged with a script of omeprazole with a diagnosis of alcoholic gastritis He came in today for a follow-up appointment - his abdominal pain got better after discharge but then start getting worse again - he is no longer drinking beer - The patient also consumed orange juice and coffee, both contributing to an increase in symptoms. - Patient currently denies any acute discomfort or pain. Problem List - Gastroesophageal Reflux Disease (GERD) - Alcohol Use Patient Instructions - Avoid alcohol consumption completely. - Avoid coffee and any beverages or foods containing citrus such as orange juice and lemon. - Drink only water. - Avoid foods and beverages with tomatoes, like pizza and spaghetti. - Follow all medication instructions carefully. I am starting him on pantoprazole 40 mg and Carafate - Attend the follow-up appointment scheduled for next month. - Seek immediate medical attention if severe discomfort or new symptoms develop. Review of Systems - General: No fever no chills - Neurological: No headaches no dizziness - Ear nose throat: No sore throat no hearing difficulty no ear pain - Cardiovascular: No syncope, no chest pain, no palpitations - Gastrointestinal: No vomiting or diarrhea - Endocrine: No polyuria polydipsia no heat intolerance - Genitourinary: No dysuria , no blood in urine Physical Exam General: No acute distress HEENT: No acute findings Neck: Supple Respiratory system: Able to talk in full sentences, no audible wheeze cardiovascular: S1-S2 regular in rate and rhythm Gastrointestinal: No pain with palpation, bowel sounds positive Extremities: No new findings OFFICE ASST: Alert awake oriented x3 motor sensory intact Skin: Normal turgor PFSH Medical History Depression [facility] Alcohol intake: current Alcohol intake frequency: a few times a week Patient Tobacco Use Status: Current everyday Tobacco user Cigarette Packs Per Day: 1 Cigarettes Per Day: 20 e-Cigarette/Vaping Use: Never Used service: No Current occupational status: employed Current occupation: [employer] Cognitive needs: No Hearing needs: No Vision needs: No Questionnaire PHQ-9 Over the last 2 weeks, how often have you been bothered by any of the following problems? 97598 - PHQ-9 Billing: Patient declined-do not bill Source: Developed by Drs. Miguel Luis, Angelica Mark, Du Villa and colleagues, with an educational mirlande from [employer]. Thrive Questionnaire Date Thrive assessed: 08/09/24 I am a: Patient What is your living situation today?: I have a place to live, but I am worried about losing it in the future Within the past 12 months, did the food you bought not last and you didn't have the money to get more?: Sometimes True Within the past 12 months, did you worry whether your food would run out before you got money to buy more?: Sometimes True Do you have trouble paying for medicines?: No Do you have trouble getting transportation to medical appointments?: No Do you have trouble paying your heating and electricity bill?: No Do you have trouble taking care of your child, family member or friend?: No Do you have trouble with day-to-day activities such as bathing, preparing meals, shopping, managing finances, etc.?: No Are you currently unemployed and looking for a job?: Yes Are you interested in more education?: No Please select the resources that you would like help with: None Currently or been in a relationship where the following occur: No concerns reported THRIVE Score: 3 AUDIT C Alcohol Use Questionnaire (AUDIT-C) 1. How often do you have a drink containing alcohol?: Monthly or less 2. How many drinks containing alcohol do you have on a typical day when you are drinking?: 3 or 4 3. How often do you have six or more drinks on one occasion?: Never Total Score: 2 Score Reviewed/Action Taken: Yes MIKY-7 AMB Questionnaire MIKY-7 Date MIKY - 7 assessed: 08/09/24 Feeling nervous, anxious, or on edge: 0 = Not at all Not being able to stop or control worryin = Not at all Worrying too much about different things: 0 = Not at all Trouble relaxin = Not at all Being so restless that it is hard to sit still: 0 = Not at all Becoming easily annoyed or irritable: 0 = Not at all Feeling afraid as if something awful might happen: 0 = Not at all Total MIKY-7 score (0-4 normal; 5-9 mild; 10-14 moderate; 15-21 severe): 0 Source: Developed by Drs. Miguel Luis, Angelica Mark, Du Villa and colleagues, with an educational mirlande from [employer]. IMKY-7 Assessment Billing MIKY-7 Assessment Tool: MIKY-7 Assessment 74226 Physical exam (Primary Care) Vital Signs: Last Vital Signs Temp 98.2 F 08/09/24 10:13 Pulse 68 08/09/24 10:13 BP 146/100 H 08/09/24 10:13 Pulse Ox 99 08/09/24 10:13 Oxygen Delivery Method Room Air 08/09/24 10:13 BMI result Body Mass Index 35.5 Tobacco/Smoking Status: Tobacco use Status Tobacco use date assessed 08/09/24 08/09/24 10:16 Patient Tobacco Use Status Current everyday Tobacco 08/09/24 10:13 e-Cigarette/Vaping Use Never Used 08/09/24 10:13 Thrive Assessment: Date of Thrive Assessment Date Thrive assessed 08/09/24 08/09/24 10:16 Currently or been in a relationship where the following occur: No concerns reported Coding Level of Care Code Est Pt Level 4 (48742) Diagnoses Acute alcoholic gastritis without hemorrhage K29.20 Gastritis type: alcoholic Gastritis bleeding: without bleeding Alcohol use disorder, moderate, dependence F10.20 Hypertension, essential I10 Additional Codes MIKY-7 Assessment Billing - MIKY-7 Assessment Tool: MIKY-7 Assessment 94347 ([id number]) Assessment & Plan Assessment & Plan (1) Acute gastritis: Code(s): K29.00 - Acute gastritis without bleeding Category: Medical Qualifiers: Gastritis type: alcoholic Gastritis bleeding: without bleeding Qualified Code(s): K29.20 - Alcoholic gastritis without bleeding (2) Alcohol use disorder, moderate, dependence: Code(s): F10.20 - Alcohol dependence, uncomplicated Category: Medical (3) Hypertension, essential: Code(s): I10 - Essential (primary) hypertension Category: Medical Plan Patient is a 58-year-old gentleman who presented to [facility] Emergency room on this with a chief complaint of abdominal pain which started 4 days prior to arrival Without any nausea vomiting or diarrhea. On examination his abdomen was soft to palpation with normal bowel sounds Patient had CT scan of abdomen done which was negative labs showed sodium of 133 He admitted to drinking alcohol few days prior Patient was discharged with a script of omeprazole with a diagnosis of alcoholic gastritis He came in today for a follow-up appointment - his abdominal pain got better after discharge but then start getting worse again - he is no longer drinking beer - The patient also consumed orange juice and coffee, both contributing to an increase in symptoms. - Patient currently denies any acute discomfort or pain. Problem List - Gastroesophageal Reflux Disease (GERD) - Alcohol Use Patient Instructions - Avoid alcohol consumption completely. - Avoid coffee and any beverages or foods containing citrus such as orange juice and lemon. - Drink only water. - Avoid foods and beverages with tomatoes, like pizza and spaghetti. - Follow all medication instructions carefully. I am starting him on pantoprazole 40 mg and Carafate - Attend the follow-up appointment scheduled for next month. - Seek immediate medical attention if severe discomfort or new symptoms develop. Medications: New sucralfate (Carafate) swish in mouth and swallow; use after food/drink 5 mL PO QID 30 days 600 mL 0RF Gastritis pantoprazole 40 mg PO DAILY 90 tabs 0RF Gastritis Discontinued omeprazole magnesium (Prilosec OTC) Discontinued Reason: Doctor's Order 20 mg PO DAILY 30 tabs 0RF
== END 2024-08-09 10:43 | disposition home or self-care (01) ==
PROVIDERS: PCP Internal Medicine; Visit Provider Internal Medicine
DX: K29.20 Alcoholic gastritis without bleeding (principal); F10.20 Alcohol dependence, uncomplicated; I10 Essential (primary) hypertension

== ENCOUNTER → 2024-08-09 10:09 | Outpatient (BNVA) | payer OTHER, SELFPAY | PROVIDERS: PCP Internal Medicine; Visit Provider Internal Medicine | DX: K29.20 Alcoholic gastritis without bleeding (principal); F10.20 Alcohol dependence, uncomplicated; I10 Essential (primary) hypertension | CPT/HCPCS: 96127; 99212 ==

== ENCOUNTER 2024-09-13 14:26 | Outpatient (AMB) | payer OTHER, SELFPAY ==
[2024-09-13 14:32] VITALS: BP 140/80; PULSE 67; O2SAT 97; BMI 35.6
--- NOTE | 2024-09-13 14:32 | A.OFFPC_ITS ---
Vital Signs 09/13/24 14:32 Height 5 ft 6 in Weight 220 lb 8 oz BMI 35.6 BP 140/80 H Blood Pressure Location Lt brachial Position Sitting Pulse 67 Pulse Source Pulse Oximeter Pulse Oximetry (%) 97 Oxygen Delivery Method Room Air Intake Visit Reasons: physical Allergies No Known Allergies [No Known Allergies*] Allergy (Verified 09/13/24 14:36) Medication List - Last Reconciled 09/13/24 by Jai Beltran MD atenolol 50 mg PO DAILY fluoxetine 20 mg PO BID 90 days folic acid 1 mg PO DAILY naltrexone 50 mg PO BID pantoprazole 40 mg PO DAILY risperidone 3 mg PO DAILY sucralfate (Carafate) 5 mL PO QID 30 days thiamine HCl (vitamin B1) 100 mg PO DAILY Tobacco use date assessed: 09/13/24 Dental Screening Dental Screen Date: 09/13/24 Did you have a dental visit in the last 12 months?: Yes Did you have a dental problem in the last 6 months where you did not have access to dental care?: No Was dental information given to patient?: Patient has dentist HPI physical HPI Details Physical exam appointment Patient came in today, feeling much better, his abdominal pain has resolved He has stopped taking pantoprazole and Carafate patient says that he does not want to take it anymore He is seeing a psychiatrist and is taking fluoxetine and risperidone through him Patient says that he is no longer taking naltrexone Cologuard was done in December of 2022 which was negative Labs done recently reviewed with the patient CBC is within normal limit Metabolic profile shows slightly elevated ALT which is stable BMI is elevated patient is having difficulty losing weight Tobacco abuse: Smoking 1 and half pack daily Patient says that he does not have a job so he is stressed out and is having difficulty quitting Blood pressure is stable patient is on atenolol 50 mg, however slightly elevated today at 01:40 systolic He will return in six-month for follow-up appointment [facility] Medical History Depression Social History Housing: Condominium Alcohol intake: current Alcohol intake frequency: a few times a week Patient Tobacco Use Status: Current everyday Tobacco user Cigarette Packs Per Day: 1 Cigarettes Per Day: 20 e-Cigarette/Vaping Use: Never Used service: No Current occupational status: employed Current occupation: [employer] Cognitive needs: No Hearing needs: No Vision needs: No Questionnaire Thrive Questionnaire Date Thrive assessed: 09/13/24 I am a: Patient What is your living situation today?: I have a place to live, but I am worried about losing it in the future Within the past 12 months, did the food you bought not last and you didn't have the money to get more?: Sometimes True Within the past 12 months, did you worry whether your food would run out before you got money to buy more?: Sometimes True Do you have trouble paying for medicines?: No Do you have trouble getting transportation to medical appointments?: No Do you have trouble paying your heating and electricity bill?: No Do you have trouble taking care of your child, family member or friend?: No Do you have trouble with day-to-day activities such as bathing, preparing meals, shopping, managing finances, etc.?: No Are you currently unemployed and looking for a job?: Yes Are you interested in more education?: No Please select the resources that you would like help with: None Currently or been in a relationship where the following occur: No concerns reported THRIVE Score: 3 AUDIT C Alcohol Use Questionnaire (AUDIT-C) 1. How often do you have a drink containing alcohol?: Monthly or less 2. How many drinks containing alcohol do you have on a typical day when you are drinking?: 3 or 4 3. How often do you have six or more drinks on one occasion?: Never Total Score: 2 Score Reviewed/Action Taken: Yes MIKY-7 AMB Questionnaire MIKY-7 Date MIKY - 7 assessed: 08/09/24 Source: Developed by Drs. Miguel Luis, Angelica Mark, Du Villa and colleagues, with an educational mirlande from [employer] Review of Systems Const Denies chills, Denies fever(s) and Denies headache(s) Eyes Denies blurry vision ENT Denies headache(s), Denies nasal discharge, Denies nasal obstruction, Denies odynophagia and Denies sinus pain Card Denies chest pain at rest and Denies chest pain with activity Resp Denies cough and Denies hemoptysis GI Denies diarrhea, Denies odynophagia, Denies vomiting and Denies hematemesis Reports as per HPI Musc Denies abnormal gait Skin/Breast Reports as per HPI Neuro Denies Neuro-related abnormal movements, Denies Abnormal speech present, Denies abnormal gait, Denies headache(s) and Denies Sensory deficit (Neuro) Psych Denies mood swings and Denies paranoia Endo Reports as per HPI Amauri/Lymph Reports as per HPI Aller/Immun Reports as per HPI Physical exam (Primary Care) Vital Signs: Last Vital Signs Pulse 67 09/13/24 14:32 BP 140/80 H 09/13/24 14:32 Pulse Ox 97 09/13/24 14:32 Oxygen Delivery Method Room Air 09/13/24 14:32 BMI result Body Mass Index 35.6 Tobacco/Smoking Status: Tobacco use Status Tobacco use date assessed 09/13/24 09/13/24 14:37 Patient Tobacco Use Status Current everyday Tobacco 09/13/24 14:33 e-Cigarette/Vaping Use Never Used 09/13/24 14:33 Thrive Assessment: Date of Thrive Assessment Date Thrive assessed 09/13/24 09/13/24 14:37 Currently or been in a relationship where the following occur: No concerns reported Const General: cooperative, comfortable and no acute distress Orientation/consciousness: patient oriented x3 HENMT Head: Yes normocephalic and Yes atraumatic Eyes General: appearance normal, both eyes and all related structures Pupils: Equal, round and reactive pupils present EOM: EOMs intact bilaterally Neck Neck: Yes supple and No lymphadenopathy Thyroid: Thyroid normal Lymphatic: no lymphadenopathy noted Resp Effort & Inspection: normal respiratory effort and able to speak in complete sentences Auscultation: clear to auscultation bilaterally Cardio Heart sounds: S1 normal heart sound present and S2 normal heart sound present GI Palpation (GI): Soft to palpation and nontender Auscultation: normal bowel sounds General: Yes no CVA tenderness Back/Spine/Pelvis Back: no CVA tenderness Skin General skin exam: elasticity normal and turgor normal Neuro General: patient oriented x3 and gait normal Cranial nerves: Yes Equal, round and reactive pupils present Speech: No Abnormal speech present Sensory Exam: No Sensory deficit (Neuro) Coordination: tandem gait normal and Romberg test negative Extrem General: Yes normal exam except as noted and No edema Coding Level of Care Code Est Pt Level 3 (58780) Est Pt Prev Care 40-64y(64486) Diagnoses Encounter for general adult medical examination with abnormal findings Z00.01 Hypertension, essential I10 Tobacco abuse Z72.0 Class 2 obesity due to excess calories without serious comorbidity with body mass index (BMI) of 37.0 to 37.9 in adult E66.09; Z68.37 Obesity classification: adult class 2 (BMI 35 - 39.9) Serious obesity comorbidity presence: without serious comorbidity Body mass index: BMI 37.0-37.9 Paranoid disorder F22 Obsessive-compulsive disorder, unspecified type F42.9 Obsessive-compulsive disorder type: unspecified Assessment & Plan Assessment & Plan (1) Encounter for general adult medical examination with abnormal findings: Code(s): Z00.01 - Encounter for general adult medical examination with abnormal findings Category: Medical (2) Hypertension, essential: Code(s): I10 - Essential (primary) hypertension Category: Medical (3) Tobacco abuse: Code(s): Z72.0 - Tobacco use Category: Medical (4) Obesity due to excess calories: Code(s): E66.09 - Other obesity due to excess calories Category: Medical Qualifiers: Obesity classification: adult class 2 (BMI 35 - 39.9) Serious obesity comorbidity presence: without serious comorbidity Body mass index: BMI 37.0- 37.9 Qualified Code(s): E66.09 - Other obesity due to excess calories; Z68.37 - Body mass index [BMI] 37.0-37.9, adult (5) Paranoid disorder: Code(s): F22 - Delusional disorders Category: Medical (6) OCD (obsessive compulsive disorder): Code(s): F42.9 - Obsessive-compulsive disorder, unspecified Category: Medical Qualifiers: Obsessive-compulsive disorder type: unspecified Qualified Code(s): F42.9 - Obsessive-compulsive disorder, unspecified Plan Physical exam appointment Patient came in today, feeling much better, his abdominal pain has resolved He has stopped taking pantoprazole and Carafate patient says that he does not want to take it anymore He is seeing a psychiatrist and is taking fluoxetine and risperidone through him Patient says that he is no longer taking naltrexone Cologuard was done in December of 2022 which was negative Labs done recently reviewed with the patient CBC is within normal limit Metabolic profile shows slightly elevated ALT which is stable BMI is elevated patient is having difficulty losing weight Tobacco abuse: Smoking 1 and half pack daily Patient says that he does not have a job so he is stressed out and is having difficulty quitting Blood pressure is stable patient is on atenolol 50 mg, however slightly elevated today at 01:40 systolic He will return in six-month for follow-up appointment Medications: Refilled atenolol 50 mg PO DAILY 90 tabs 1RF High blood pressure Discontinued naltrexone Discontinued Reason: Patient Completed Course 50 mg PO BID 60 tabs 1RF sucralfate (Carafate) swish in mouth and swallow; use after food/drink Discontinued Reason: Patient Completed Course 5 mL PO QID 30 days 600 mL 0RF Gastritis pantoprazole Discontinued Reason: Patient Completed Course 40 mg PO DAILY 90 tabs 0RF Gastritis
== END 2024-09-13 14:52 | disposition home or self-care (01) ==
LOC: HO.HMCC 14:27
PROVIDERS: PCP Internal Medicine; Visit Provider Internal Medicine
DX: Z00.00 Encounter for general adult medical examination without abnormal findings (principal); F22 Delusional disorders; E66.09 Other obesity due to excess calories; Z68.37 Body mass index [BMI] 37.0-37.9, adult; I10 Essential (primary) hypertension; Z72.0 Tobacco use; F42.9 Obsessive-compulsive disorder, unspecified

== ENCOUNTER → 2024-09-13 14:26 | Outpatient (BNVA) | payer OTHER, SELFPAY | PROVIDERS: PCP Internal Medicine; Visit Provider Internal Medicine | DX: Z00.01 Encounter for general adult medical examination with abnormal findings (principal); I10 Essential (primary) hypertension; E66.09 Other obesity due to excess calories; Z68.37 Body mass index [BMI] 37.0-37.9, adult; F22 Delusional disorders; F42.9 Obsessive-compulsive disorder, unspecified; Z79.899 Other long term (current) drug therapy; Z72.0 Tobacco use | CPT/HCPCS: 99396 ==

== ENCOUNTER 2024-12-13 11:42 | Outpatient (AMB) | payer OTHER, SELFPAY ==
[2024-12-13 11:46] VITALS: BP 140/90; PULSE 60; O2SAT 98; BMI 34.4
--- NOTE | 2024-12-13 11:46 | A.OFFPC_ITS ---
Vital Signs 12/13/24 11:46 Height 5 ft 6 in Weight 213 lb BMI 34.4 BP 140/90 H Blood Pressure Location Lt brachial Position Sitting Pulse 60 Pulse Source Pulse Oximeter Pulse Oximetry (%) 98 Oxygen Delivery Method Room Air Intake Visit Reasons: Episode of numbness Injection Molding Operator Required: No Allergies No Known Allergies (No Known Allergies*) Allergy (Verified 12/13/24 11:46) Medication List - Last Reconciled 12/13/24 by Jai Beltran MD atenolol 50 mg PO DAILY fluoxetine 20 mg PO BID 90 days folic acid 1 mg PO DAILY risperidone 3 mg PO DAILY thiamine HCl (vitamin B1) 100 mg PO DAILY Tobacco use date assessed: 09/13/24 Dental Screening Dental Screen Date: 09/13/24 HPI Episode of numbness HPI Details History - The patient is a 59-year-old male pres enting with intermittent abdominal discomfort and concern about potential diabetes. - Describes occasional discomfort locali zed to parts of the abdomen, experienced especially over the last month. - The patient reports excessive consumpt ion of sugary substances, with a tendency to consume high amounts of sugar in coffee; specifically reports using two tablespoons per cup. - Patient transitioned to decaffeinated coffee approximately one and a half weeks ago. - Reports occasional numb sensation prim arily affecting the legs and forearms, although able to make a fist and move limbs without issues. - No tingling reported in the extremitie s. - Stress potentially contributing to sym ptoms, with added concern about the absence of a formal diabetes diagnosis. - Previous lab results in July showed n o signs of diabetes, with random blood sugars between 93 and 114 mg/dL, and fasting sugar at 90 mg/dL. - The blood pressure has shown consisten t readings around 140/80 to 140/90 on different occasions. Medical History: - Hypertension, controlled with Atenolol 50 mg. - Obsessive-Compulsive Disorder (OCD), r eported as managed. - Stress related to unemployment. . Social History: - Smoking: Currently consumes one pack o f cigarettes per day. - Alcohol: Ceased consumption three marion hs ago. - Employment: Has been unemployed for al most a year; previously employed as a parts puller in a medical field. - Reports stress due to job search and e mployment status. - Reports engaging in weight loss effort s through dieting and reducing coffee intake. - Seen by a psychiatrist. Diagnostic Results: - Previous labs in July: Random blood s ugar between 93 to 114 mg/dL, Fasting blood sugar at 90 mg/dL. Problem List - Hypertension - Obsessive-Compulsive Disorder (OCD) - Intermittent abdominal discomfort - Concerns regarding potential diabetes Patient Instructions - Consider reducing coffee and sugar int edvin. - Drink more water to stay hydrated. - Continue with current medications and monitor any changes in symptoms. - Obtain a blood pressure monitoring dev ice to track blood pressure at home, and keep a log for review. - Return for blood work including CBC, m etabolic profile, kidney and liver fu nction tests, thyroid function, B12 and vitamin D levels as discussed. Review of Systems - General: No fever no chills - Neurological: No headaches no dizziness - Ear nose throat: No sore throat no hearing difficulty no ear pain - Cardiovascular: No syncope, no chest pain, no palpitations - Gastrointestinal: No nausea vomiting or diarrhea - Endocrine: No polyuria polydipsia no heat intolerance - Genitourinary: No dysuria , no blood in urine Physical Exam General: No acute distress HEENT: No acute findings Neck: Supple Respiratory system: Able to talk in full sentences, no audible wheeze Cardiovascular: S1-S2 regular in rate and rhythm Gastrointestinal: No pain, BS + [employer]ENT: Alert awake oriented x3 motor sensory intact Skin: Normal turgor PFSH Medical History Depression Surgical History No pertinent past surgical history Social History Housing: Condominium Alcohol intake: current Alcohol intake frequency: a few times a week Patient Tobacco Use Status: Current everyday Tobacco user Cigarette Packs Per Day: 1 Cigarettes Per Day: 20 e-Cigarette/Vaping Use: Never Used service: No Current occupational status: employed Current occupation: [employer] Cognitive needs: No Hearing needs: No Vision needs: No Questionnaire PHQ-9 Over the last 2 weeks, how often have you been bothered by any of the following problems? 94715 - PHQ-9 Billing: Patient declined-do not bill Source: Developed by Drs. Miguel Luis, Du Ramirez and colleagues, with an educational mirlande from [employer] Thrive Questionnaire Date Thrive assessed: 12/13/24 I am a: Patient What is your living situation today?: I have a place to live, but I am worried about losing it in the future Within the past 12 months, did the food you bought not last and you didn't have the money to get more?: Sometimes True Within the past 12 months, did you worry whether your food would run out before you got money to buy more?: Sometimes True Do you have trouble paying for medicines?: No Do you have trouble getting transportation to medical appointments?: No Do you have trouble paying your heating and electricity bill?: No Do you have trouble taking care of your child, family member or friend?: No Do you have trouble with day-to-day activities such as bathing, preparing meals, shopping, managing finances, etc.?: No Are you currently unemployed and looking for a job?: Yes Are you interested in more education?: No Please select the resources that you would like help with: None Currently or been in a relationship where the following occur: No concerns reported THRIVE Score: 3 MIKY-7 AMB Questionnaire MIKY-7 Date MIKY - 7 assessed: 12/13/24 (patient declined) Source: Developed by Drs. Miguel Luis, Du Ramirez and colleagues, with an educational mirlande from [employer] Physical exam (Primary Care) Vital Signs: Last Vital Signs Pulse 60 12/13/24 11:46 BP 140/90 H 12/13/24 11:46 Pulse Ox 98 12/13/24 11:46 Oxygen Delivery Method Room Air 12/13/24 11:46 BMI result Body Mass Index 34.4 Tobacco/Smoking Status: Tobacco use Status Tobacco use date assessed 09/13/24 12/13/24 11:50 Patient Tobacco Use Status Current everyday Tobacco 12/13/24 11:50 e-Cigarette/Vaping Use Never Used 12/13/24 11:50 Thrive Assessment: Date of Thrive Assessment Date Thrive assessed 12/13/24 12/13/24 11:50 Currently or been in a relationship where the following occur: No concerns reported Coding Level of Care Code Est Pt Level 4 (59231) Diagnoses Stress F43.9 Hypertension, essential I10 Class 2 obesity due to excess calories without serious comorbidity with body mass index (BMI) of 37.0 to 37.9 in adult E66.09; Z68.37 Body mass index: BMI 37.0-37.9 Obesity classification: adult class 2 (BMI 35 - 39.9) Serious obesity comorbidity presence: without serious comorbidity Tobacco abuse Z72.0 Obsessive-compulsive disorder, unspecified type F42.9 Obsessive-compulsive disorder type: unspecified Paranoid disorder F22 Intermittent abdominal pain R10.9 Encounter for health-related screening Z13.9 Assessment & Plan Assessment & Plan (1) Stress: Code(s): F43.9 - Reaction to severe stress, unspecified Category: Medical (2) Hypertension, essential: Code(s): I10 - Essential (primary) hypertension Category: Medical (3) Obesity due to excess calories: Code(s): E66.09 - Other obesity due to excess calories Category: Medical Qualifiers: Body mass index: BMI 37.0-37.9 Obesity classification: adult class 2 (BMI 35 - 39.9) Serious obesity comorbidity presence: without serious comorbidity Qualified Code(s): E66.09 - Other obesity due to excess calories; Z68.37 - Body mass index [BMI] 37.0-37.9, adult (4) Tobacco abuse: Code(s): Z72.0 - Tobacco use Category: Medical (5) OCD (obsessive compulsive disorder): Code(s): F42.9 - Obsessive-compulsive disorder, unspecified Category: Medical Qualifiers: Obsessive-compulsive disorder type: unspecified Qualified Code(s): F42.9 - Obsessive-compulsive disorder, unspecified (6) Paranoid disorder: Code(s): F22 - Delusional disorders Category: Medical (7) Intermittent abdominal pain: Code(s): R10.9 - Unspecified abdominal pain Category: Medical (8) Encounter for health-related screening: Code(s): Z13.9 - Encounter for screening, unspecified Category: Medical Plan History - The patient is a 59-year-old male presenting with intermittent abdominal disco mfort and concern about potential diabetes. - Describes occasional discomfort localized to parts of the abdomen, experienced especially over the last month. - The patient reports excessive consumption of sugary substances, with a tendency to consume high amounts of sugar in coffee; specifically reports using two tablespoons per cup. - Patient transitioned to decaffeinated coffee approximately one and a half weeks ago. - Reports occasional numb sensation primarily affecting the legs and forearms, although able to make a fist and move limbs without issues. - No tingling reported in the extremities. - Stress potentially contributing to symptoms, with added concern about the absence of a formal diabetes diagnosis. - Previous lab results in July showed no signs of diabetes, with random blood s ugars between 93 and 114 mg/dL, and fasting sugar at 90 mg/dL. - The blood pressure has shown consistent readings around 140/80 to 140/90 on different occasions. Medical History: - Hypertension, controlled with Atenolol 50 mg. - Obsessive-Compulsive Disorder (OCD), reported as managed. - Stress related to unemployment. . Social History: - Smoking: Currently consumes one pack of cigarettes per day. - Alcohol: Ceased consumption three months ago. - Employment: Has been unemployed for almost a year; previously employed as a parts puller in a medical field. - Reports stress due to job search and employment status. - Reports engaging in weight loss efforts through dieting and reducing coffee intake. - Seen by a psychiatrist. Diagnostic Results: - Previous labs in July: Random blood sugar between 93 to 114 mg/dL, Fasting blood sugar at 90 mg/dL. Problem List - Hypertension - Obsessive-Compulsive Disorder (OCD) - Intermittent abdominal discomfort - Concerns regarding potential diabetes Patient Instructions - Consider reducing coffee and sugar intake. - Drink more water to stay hydrated. - Continue with current medications and monitor any changes in symptoms. - Obtain a blood pressure monitoring device to track blood pressure at home, and keep a log for review. - Return for blood work including CBC, metabolic profile, kidney and liver function tests, thyroid function, B12 and vitamin D levels as discussed. Orders: Orders Complete Blood Count Auto Diff Today E66.09 - Other obesity due to excess calories, F22 - Delusional disorders, F42.9 - Obsessive-compulsive disorder, unspecified, F43.9 - Reaction to severe stress, unspecified, I10 - Essential (primary) hypertension, Z68.37 - Body mass index [BMI] 37.0-37.9, adult, Z72.0 - Tobacco use Comprehensive Met. Panel Today E66.09 - Other obesity due to excess calories, F22 - Delusional disorders, F42.9 - Obsessive-compulsive disorder, unspecified, F43.9 - Reaction to severe stress, unspecified, I10 - Essential (primary) hypertension, Z68.37 - Body mass index [BMI] 37.0-37.9, adult, Z72.0 - Tobacco use TSH reflex Free T4 Today E66.09 - Other obesity due to excess calories, F22 - Delusional disorders, F42.9 - Obsessive-compulsive disorder, unspecified, F43.9 - Reaction to severe stress, unspecified, I10 - Essential (primary) hypertension, Z68.37 - Body mass index [BMI] 37.0-37.9, adult, Z72.0 - Tobacco use Vitamin B12 Today E66.09 - Other obesity due to excess calories, F22 - Delusional disorders, F42.9 - Obsessive-compulsive disorder, unspecified, F43.9 - Reaction to severe stress, unspecified, I10 - Essential (primary) hypertension, Z68.37 - Body mass index [BMI] 37.0-37.9, adult, Z72.0 - Tobacco use Vitamin D 25-OH (D2 and D3) Today E66.09 - Other obesity due to excess calories, F22 - Delusional disorders, F42.9 - Obsessive-compulsive disorder, unspecified, F43.9 - Reaction to severe stress, unspecified, I10 - Essential (primary) hypertension, Z68.37 - Body mass index [BMI] 37.0-37.9, adult, Z72.0 - Tobacco use LDL Cholesterol Direct Today E66.09 - Other obesity due to excess calories, F22 - Delusional disorders, F42.9 - Obsessive-compulsive disorder, unspecified, F43.9 - Reaction to severe stress, unspecified, I10 - Essential (primary) hypertension, Z68.37 - Body mass index [BMI] 37.0-37.9, adult, Z72.0 - Tobacco use Hemoglobin A1c Today E66.09 - Other obesity due to excess calories, Z68.37 - Body mass index [BMI] 37.0-37.9, adult
--- OUTSIDE RECORDS SUMMARY | 2024-12-13 12:34 | XMS_ITS | Clinical Summary ---
Author Organization [facility] Address [address] [place] [address] Phone Care Team Providers Care Construction Management Assistant Name Role Phone Unavailable Primary Care Provider Unavailabl e Allergies No known active allergies Medications triamcinolone acetonide 0.1 % cream Apply topically 2 (two) times a day. To lower legs 45 g 1 1 Active cholecalciferol (VITAMIN D3) 2,000 unit capsuleIndicati ons:Vitamin D deficiency Take 1 capsule (2,000 Units total) by mouth daily. 90 capsule 1 1 Active cyanocobalamin, vitamin B-12, 1000 MCG tabletIndicatio ns:B12 deficiency Take 1 tablet (1,000 mcg total) by mouth daily. 90 tablet 1 1 Active ibuprofen (ADVIL,MOTRIN) 800 MG tablet Take 1 tablet by mouth every 4 (four) hours as needed. 2 Active acetaminophen (TYLENOL) 500 MG tablet Take 2,000 mg by mouth every 4 (four) hours as needed for pain (specific location in comments). Active FLUoxetine (PROZAC) 20 MG capsuleIndicati ons:Anxiety TAKE 1 CAPSULE BY MOUTH TWICE A DAY 180 capsule 1 2 Active risperiDONE (RISPERDAL) 3 MG tablet TAKE 1 TABLET BY MOUTH EVERY DAY AT 5:30PM 90 tablet 2 Active Active Problems Problem Noted Date Diagnosed Date Closed fracture of rib of right side with routin e healing 05/27/2021 Assessment & Plan (05/27/2021 10:08 PM EST): Existence of 1/8 right posterior mildly displaced rib fracture without history of trauma is suspicious for pathological fracture brought on by coughing spells or twisting motion. Repeat x-ray of the rib right-sided assess for other fractures and lytic lesions within the bone, work-up multiple myeloma with SPEP, sed rate, CBC. If any suspicious findings we will refer to oncology. Robitussin-AC recommended to reduce cough reflex. Acute left-sided low back pain without sciatica 06/05/2020 Assessment & Plan (06/05/2020 9:56 AM EST): This is a lumbosacral sprain in the setting of lifting heavy snow and it appears that he is on the road to gandhi recovery after taking some days off. We will write him some ibuprofen to help through some of the pain and he can return back to work without restriction tomorrow and a letter was sent to that effect. We would encourage the patient to do some stretching exercises to help with his back and have included with the clinical summary. Pain and swelling of left wrist 01/16/2020 Assessment & Plan (01/16/2020 6:30 PM EDT): Differential includes bacterial, crystal induced, autoimmune etiologies. Most likely this could be a septic joint for example caused by a gonococcal infection. Patient does not have any dysuria but that could be quiescent perhaps. Let us obtain a CBC, sed rate, CRP and Lyme titer for lab work that might reflect the cause of the joint swelling. If the patient develops fever and redness of the skin and increased swelling will start empirically on antibiotics. Obtain x-ray of the wrist to assess for effusion. Will most likely refer this patient urgently to rheumatologists for arthrodesis and treatment. Tobacco dependence 04/03/2018 Obsessive-compulsive disorder 03/22/2017 Paranoia 03/22/2017 Allergic rhinitis 03/22/2017 Anxiety 03/22/2017 Disorganized thinking 03/22/2017 Abnormal liver function 03/22/2017 Resolved Problems Problem Noted Date Diagnosed Date Resolved Date Alcohol abuse 03/22/2017 05/19/2018 Immunizations Immunization Administration Dates Next Due COVID-19 (Pre-03/15) Moderna Vaccine, mRNA, PF 0 10/14/2020,09/16/2020 Tdap 06/28/2006 Family History Medical History Relation Comments No Known Problems Father No Known Problems Mother No Known Problems Sister Relation Status Comments Father Alive Mother Alive Sister Alive Social History Tobacco Use Types Packs/Day Years Used Date Smoking Tobacco: Every Day Cigarettes 0.5 5 Started: 08/17/2014; Last attempted to quit: 08/18/2019 Smokeless Tobacco: Never Tobacco Cessation:Ready to Q uit: Yes; Counseling Given: Yes Comments:1 pack/1.5 days Alcohol Use Standard Drinks/Week Comments Yes 10 (1 standard drink = 0.6 oz pu re alcohol) 5-6 beers, 2 x week Child or Family Care Answer Date Record ed Do you have problems with on e of the following making it difficult for you to work, study, or receive health care? No 04/25/2021 Education Answer Date Recorded Are you interested in more education? Not on aleisha e 05/04/2023 Are you concerned about learning? Not on file 05/04/2023 No 05/04/2023 No 05/04/2023 Food Answer Date Recorded Within the past 6 months we worried whether our food would run out before we got money to buy more. Never True 04/25/2021 Within the past 6 months the food we bought just didn't last and we didn't have enough money to get more. Never True Residential Stability Answer Date Recor ded What is your housing situation today? I have adrian bowen 04/25/2021 How many times have you move d in the past 12 months? Zero (I did not move) 04/25/2021 06 Are you worried that in t he next 2 months, you may not have your own housing to live in? No 04/25/2021 Paying for Meds Answer Date Recorded Do you have trouble paying for medicines? No 04/25/2021 Paying Utility Bills Answer Date Record ed Do you have trouble paying your heating or elect ricity bill? No 04/25/2021 Transportation Answer Date Recorded Has the lack of transportati on kept you from medical appointments or from getting medications? No 04/25/2021 Unemployment Answer Date Recorded Are you currently unemployed or working on a part-time or temporary basis, and looking for work? No 04/25/2021 Digital Access Answer Date Recorded No 10/17/2022 No 10/17/2022 Reliable internet access at home? Not on file 10/17/2022 Device with a working camera? Not on file Sex and Gender Information Value Date Recorded Sex Assigned at Not on file Legal Sex Male 10:32 PM EDT Gender Identity Not on file Sexual Orientation Not on file Last Filed Vital Signs Vital Sign Reading Time Taken Comments Blood Pressure 128/82 05/27/2021 11:03 AM EST Pulse 80 05/27/2021 11:03 AM EST Temperature 36.5 C (97.7 F) 04/25/2021 3:31 PM EST Respiratory Rate 16 05/27/2021 11:0 3 AM EST Oxygen Saturation 96% 05/27/2021 11: 03 AM EST Inhaled Oxygen Concentration - - Weight 114.5 kg (252 lb 6.4 oz) 022 11:03 AM EST Height 163.8 cm (5' 4.49 ) 05/27/2021 1 1:03 AM EST Body Mass Index 42.67 05/27/2021 11:03 AM EST Plan of Treatment Health Maintenance Due Date Last Done Comments SMOKING Hx and SMOKELESS TOBACCO SCREENING 09/13/1980 PNEUMOCOCCAL VACCINES (50+ years) (1 of 2 - PCV) 09/13/1986 COLOGUARD 09/13/2012 COLONOSCOPY 09/13/2012 COLORECTAL CANCER SCREENING 09/13/2012 FIT TEST 09/13/2012 FOBT 09/13/2012 SIGMOIDOSCOPY 09/13/2012 VIRTUAL COLONOSCOPY 09/13/2012 Adult Td,Tdap Booster 06/28/2016 06/28/2006 ZOSTER VACCINES (1 of 2) 09/13/2017 DEPRESSION SCREENING 12/24/2018 12/24/2017 LIPID PANEL 05/13/2021 05/13/2016, 05/13/2016 COVID-19 VACCINE (3 - 2023-2 5 season) 2024 10/14/2020, 09/16/2020 HEPATITIS C SCREENING Completed 05/15/2021 , 05/15/2021 HIV ONE-TIME SCREENING (18-6 5 YEARS) Completed 05/15/2021 HEPATITIS A VACCINES Aged Out No long er eligible based on patient's age to complete this topic HIB VACCINES Aged Out No longer eligi ble based on patient's age to complete this topic MENINGOCOCCAL VACCINES (ACWY) Aged Out No longer eligible based on patient's age to complete this topic MENINGOCOCCAL VACCINES (B) Aged Out N o longer eligible based on patient's age to complete this topic Medical Devices Not on file Procedures Procedure Name Priority Date/Time Associated Diagnosis Comments HEPATITIS C ANTIBODY, QUALITATIVE Routine 05/15/2021 8:14 AM EST Screening for human immunodeficiency virus OUTSIDE LDL Routine 05/13/2016 from Last 3 Months or Most Recently Relevant to Health Maintenance Results * Hepatitis C antibody, qualitative (05/15/2021 8:14 AM EST) HCV NON-REACTIV E NON-REACTI VE [facility] Blood 05/15/2021 8:14 AM EST 05/15/2021 8:18 AM EST us Saray Omalley NP LAB BLOOD ORDERABLES Final Resu lt Performing Organization Address City/State/[facility] Co de Phone Number [address] [address] * Outside LDL (05/13/2016) LDL - External 98 50 - 250 mg/ml us Historical Provider LAB BLOOD ORDERABLES Frances l Result from Last 3 Months or Most Recently Relevant to Health Maintenance Insurance [facility] [place] [address] [place] [id number] [address] [place] [address] [place] [id number] [facility]PO [facility] POS EPO Additional Source Comments The information contained in this document represents components of the legal health record. It is not the complete legal health record.[facility]
== END 2024-12-13 13:21 | disposition home or self-care (01) ==
LOC: HO.HMCC 11:43
PROVIDERS: PCP Internal Medicine; Visit Provider Internal Medicine
DX: I10 Essential (primary) hypertension (principal); E66.09 Other obesity due to excess calories; Z68.37 Body mass index [BMI] 37.0-37.9, adult; F22 Delusional disorders; F43.9 Reaction to severe stress, unspecified; Z72.0 Tobacco use; F42.9 Obsessive-compulsive disorder, unspecified; R10.9 Unspecified abdominal pain

== ENCOUNTER → 2024-12-13 11:42 | Outpatient (BNVA) | payer OTHER, SELFPAY | PROVIDERS: PCP Internal Medicine; Visit Provider Internal Medicine | DX: R20.0 Anesthesia of skin (principal); R10.9 Unspecified abdominal pain; E66.09 Other obesity due to excess calories; I10 Essential (primary) hypertension; F43.9 Reaction to severe stress, unspecified; F42.9 Obsessive-compulsive disorder, unspecified; F22 Delusional disorders; F17.200 Nicotine dependence, unspecified, uncomplicated; Z68.37 Body mass index [BMI] 37.0-37.9, adult | CPT/HCPCS: 99212 ==

== ENCOUNTER 2025-03-20 12:58 | Outpatient (REF) | payer OTHER, SELFPAY ==
[2025-03-20 16:30] LABS: MANUAL DIFF FLAG NO
[2025-03-20 16:44] LABS: Hematocrit 43.1 % (42.0-52.0); Hemoglobin 14.5 g/dl (14.0-18.0); Imm Gran Abs Auto 0.06 X10*3/uL (0.00-0.03); Imm Gran Pct Auto 0.6 % (0.0-0.4); Lymphocytes Absolute Auto 2.9 X10*3/uL (1.2-4.9); Mean Corpuscular HGB Conc 33.6 g/dl (31.0-36.0); Mean Corpuscular Hemoglobin 30.2 pg (27.0-33.0); Mean Corpuscular Volume 89.8 fL (80.0-98.0); NRBC Abs Auto 0.000 X10*3/uL (0.0-0.012); NRBC Pct Auto 0.0 /100WBC (0.0-0.2); Platelet Count 302 X10*3/uL (160-400); Red Blood Count 4.80 X10*6/uL (4.60-5.80); White Blood Count 9.7 X10*3/uL (4.8-10.8)
[2025-03-20 17:17] LABS: Alanine Aminotransferase 31 U/L (0-40); Albumin Level 4.2 g/dL (3.5-5.0); Alkaline Phosphatase 59 U/L (39-117); Anion Gap 13 (12-20); Aspartate Amino Transferase 20 U/L (5-37); Blood Urea Nitrogen 10 mg/dL (9-16); Calcium 9.8 mg/dL (8.4-10.2); Carbon Dioxide 27 mmol/L (22-29); Chloride 102 mmol/L (96-108); Estimated Glomerular Filt Rate > 60; Potassium 4.5 mmol/L (3.3-5.1); Sodium 137 mmol/L (135-145); Total Protein 7.2 g/dL (6.5-8.0)
[2025-03-20 17:23] LABS: Vitamin B12 278 pg/mL (200-900)
[2025-03-25 05:18] LABS: Vitamin D 25-OH, D2 <4 ng/mL; Vitamin D 25-OH, D3 13 ng/mL; Vitamin D 25-OH, Total 13 ng/mL (30-100)
== END 2025-03-20 12:59 | disposition home or self-care (01) ==
LOC: HO.HMGCLDS 12:58
PROVIDERS: PCP Internal Medicine; Visit Provider Internal Medicine
DX: I10 Essential (primary) hypertension (principal); E66.09 Other obesity due to excess calories; F42.9 Obsessive-compulsive disorder, unspecified; F22 Delusional disorders; F43.9 Reaction to severe stress, unspecified; R79.89 Other specified abnormal findings of blood chemistry; F17.210 Nicotine dependence, cigarettes, uncomplicated; Z68.33 Body mass index [BMI] 33.0-33.9, adult; Z79.899 Other long term (current) drug therapy
CPT/HCPCS: 36415; 80053; 82306; 82607; 83036; 83721; 84443; 85025; 99212

== ENCOUNTER 2025-03-20 12:58 | Outpatient (AMB) | payer OTHER, SELFPAY ==
[2025-03-20 13:00] VITALS: BP 136/72; PULSE 75; RESP 16; O2SAT 97; BMI 33.0
--- NOTE | 2025-03-20 13:00 | MHC.PC.OV ---
Vital Signs 03/20/25 13:00 Height 5 ft 6 in Weight 204 lb 4 oz BMI 33.0 BP 136/72 Blood Pressure Location Rt brachial Position Sitting Respiration 16 Pulse 75 Pulse Source Pulse Oximeter Pulse Oximetry (%) 97 Oxygen Delivery Method Room Air Intake Visit Reasons: 6 months f/up Allergies No Known Allergies (No Known Allergies*) Allergy (Verified 12/13/24 11:46) Medication List - Last Reconciled 03/20/25 by Jai Beltran MD atenolol 50 mg PO DAILY fluoxetine 20 mg PO BID 90 days folic acid 1 mg PO DAILY risperidone 3 mg PO DAILY thiamine HCl (vitamin B1) 100 mg PO DAILY Tobacco use date assessed: 09/13/24 Dental Screening Dental Screen Date: 09/13/24 HPI 6 months f/up HPI Details History of Present Illness The patient is a 59-year-old male presenting for a 6-month followup appointment. Hypertension: - The patient is taking atenolol 50 mg for blood pressure management, which is prescribed by his PCP. - Today's blood pressure reading was 136/72 mmHg. Anxiety, Paranoid Disorder, and OCD: - The patient has diagnoses of paranoid disorder, obsessive-compulsive disorder (OCD), and anxiety. - He is taking fluoxetine 20 mg for anxiety and risperidone. - He sees a psychiatrist, Aviva Silva, for these conditions, and his psychiatric medications are managed by her. Hyperlipidemia: - Labs from July of this year showed an LDL of 125. Elevated Liver Enzymes: - Laboratory results from July of this year showed a stable but elevated ALT of 46. Overweight: - The patient's BMI is elevated, and he is trying to lose weight. Medical History: - Hypertension - Anxiety - Paranoid disorder - Obsessive-compulsive disorder (OCD) Medications: - Atenolol 50 mg for hypertension - Fluoxetine 20 mg for anxiety - Risperidone for paranoid disorder Social History: - The patient has an elevated BMI and is trying to lose weight. - He is under the care of a psychiatrist for mental health management. Diagnostic Results: - Labs from July of this year showed the following: - CBC: Normal hemoglobin - Electrolytes: Stable - Kidney function: Stable - ALT: 46 (elevated but stable) - LDL: 125 - Thyroid: Within normal limits Problem List - Hypertension - Anxiety - Paranoid disorder - Obsessive-compulsive disorder (OCD) - Hyperlipidemia - Elevated liver enzymes - Obesity - Preventative Care: Declined influenza vaccine Plan - The patient will continue atenolol 50 mg for hypertension. - The patient was reminded to complete his lab work, ordered in November, today. - The lab report will be faxed to his psychiatrist, Aviva Silva, at [phone]. - Psychiatric medications will continue to be managed by the patient's psychiatrist. - The patient declined the flu vaccine today. - He will return in August for his physical exam appointment. - Encouraged to continue efforts to lose weight. Review of Systems - General: No fever no chills - Neurological: No headaches no dizziness - Ear nose throat: No sore throat no hearing difficulty no ear pain - Cardiovascular: No syncope, no chest pain, no palpitations - Gastrointestinal: No nausea vomiting or diarrhea - Endocrine: No polyuria polydipsia no heat intolerance - Genitourinary: No dysuria , no blood in urine Physical Exam - General: No acute distress - HEENT: No acute findings - Neck: Supple - Respiratory system: Able to talk in full sentences, no audible wheeze - Cardiovascular: S1-S2 regular in rate and rhythm - Gastrointestinal: No pain - Extremities: No new findings - MAINTENANCE SERVICE TECHNICIAN: Alert awake oriented x3 motor intact - Skin: Normal turgor PFSH Medical History Depression Surgical History No pertinent past surgical history Social History Housing: Condominium Alcohol intake: current Alcohol intake frequency: a few times a week Patient Tobacco Use Status: Current everyday Tobacco user Cigarette Packs Per Day: 1 Cigarettes Per Day: 20 e-Cigarette/Vaping Use: Never Used service: No Current occupational status: employed Current occupation: [employer] Cognitive needs: No Hearing needs: No Vision needs: No Questionnaire Thrive Questionnaire Date Thrive assessed: 05/30/24 I am a: Patient What is your living situation today?: I have a place to live, but I am worried about losing it in the future Within the past 12 months, did the food you bought not last and you didn't have the money to get more?: Sometimes True Within the past 12 months, did you worry whether your food would run out before you got money to buy more?: Sometimes True Do you have trouble paying for medicines?: No Do you have trouble getting transportation to medical appointments?: No Do you have trouble paying your heating and electricity bill?: No Do you have trouble taking care of your child, family member or friend?: No Do you have trouble with day-to-day activities such as bathing, preparing meals, shopping, managing finances, etc.?: No Are you currently unemployed and looking for a job?: Yes Are you interested in more education?: No Please select the resources that you would like help with: None Currently or been in a relationship where the following occur: No concerns reported THRIVE Score: 3 MIKY-7 AMB Questionnaire MIKY-7 Date MIKY - 7 assessed: 12/13/24 (patient declined) Source: Developed by Drs. Miguel Luis, Angelica Mark, Du Villa and colleagues, with an educational mirlande from [employer]. Physical exam (Primary Care) Vital Signs: Last Vital Signs Pulse 75 03/20/25 13:00 Resp 16 03/20/25 13:00 BP 136/72 03/20/25 13:00 Pulse Ox 97 03/20/25 13:00 Oxygen Delivery Method Room Air 03/20/25 13:00 BMI result Body Mass Index 33.0 Tobacco/Smoking Status: Tobacco use Status Tobacco use date assessed 09/13/24 03/20/25 13:05 Patient Tobacco Use Status Current everyday Tobacco 03/20/25 13:05 e-Cigarette/Vaping Use Never Used 03/20/25 13:05 Thrive Assessment: Date of Thrive Assessment Date Thrive assessed 05/30/24 03/20/25 13:05 Currently or been in a relationship where the following occur: No concerns reported Coding Level of Care Code Est Pt Level 4 (64483) Diagnoses Hypertension, essential I10 Paranoid disorder F22 Obsessive-compulsive disorder, unspecified type F42.9 Obsessive-compulsive disorder type: unspecified Class 2 obesity due to excess calories without serious comorbidity with body mass index (BMI) of 37.0 to 37.9 in adult E66.09; Z68.37 Obesity classification: adult class 2 (BMI 35 - 39.9) Serious obesity comorbidity presence: without serious comorbidity Body mass index: BMI 37.0-37.9 LFT elevation R79.89 Assessment & Plan Assessment & Plan (1) Hypertension, essential: Code(s): I10 - Essential (primary) hypertension Category: Medical (2) Paranoid disorder: Code(s): F22 - Delusional disorders Category: Medical (3) OCD (obsessive compulsive disorder): Code(s): F42.9 - Obsessive-compulsive disorder, unspecified Category: Medical Qualifiers: Obsessive-compulsive disorder type: unspecified Qualified Code(s): F42.9 - Obsessive-compulsive disorder, unspecified (4) Obesity due to excess calories: Code(s): E66.09 - Other obesity due to excess calories Category: Medical Qualifiers: Obesity classification: adult class 2 (BMI 35 - 39.9) Serious obesity comorbidity presence: without serious comorbidity Body mass index: BMI 37.0-37.9 Qualified Code(s): E66.09 - Other obesity due to excess calories; Z68.37 - Body mass index [BMI] 37.0-37.9, adult (5) LFT elevation: Code(s): R79.89 - Other specified abnormal findings of blood chemistry Category: Medical Plan Hypertension: - The patient is taking atenolol 50 mg for blood pressure management, which is prescribed by his PCP. - Today's blood pressure reading was 136/72 mmHg. Anxiety, Paranoid Disorder, and OCD: - The patient has diagnoses of paranoid disorder, obsessive-compulsive disorder (OCD), and anxiety. - He is taking fluoxetine 20 mg for anxiety and risperidone. - He sees a psychiatrist, Aviva Silva, for these conditions, and his psychiatric medications are managed by her. Hyperlipidemia: - Labs from July this year showed an LDL of 125. Elevated Liver Enzymes: - Laboratory results from July this year showed a stable but elevated ALT of 46. Overweight: - The patient's BMI is elevated, and he is trying to lose weight. Medical History: - Hypertension - Anxiety - Paranoid disorder - Obsessive-compulsive disorder (OCD) Medications: - Atenolol 50 mg for hypertension - Fluoxetine 20 mg for anxiety - Risperidone for paranoid disorder Social History: - The patient has an elevated BMI and is trying to lose weight. - He is under the care of a psychiatrist for mental health management. Diagnostic Results: - Labs from July this year showed the following: - CBC: Normal hemoglobin - Electrolytes: Stable - Kidney function: Stable - ALT: 46 (elevated but stable) - LDL: 125 - Thyroid: Within normal limits Problem List - Hypertension - Anxiety - Paranoid disorder - Obsessive-compulsive disorder (OCD) - Hyperlipidemia - Elevated liver enzymes - Obesity - Preventative Care: Declined influenza vaccine Plan - The patient will continue atenolol 50 mg for hypertension. - The patient was reminded to complete his lab work, ordered in November, today. - The lab report will be faxed to his psychiatrist, Aviva Silva, at [phone]. - Psychiatric medications will continue to be managed by the patient's psychiatrist. - The patient declined the flu vaccine today. - He will return in August for his physical exam appointment. - Encouraged to continue efforts to lose weight. Medications: Refilled atenolol 50 mg PO DAILY 90 tabs 1RF High blood pressure
--- OUTSIDE RECORDS SUMMARY | 2025-03-20 16:21 | XMS_ITS | Clinical Summary ---
Author Organization [facility] Address [address] [place] [address] Phone Care Team Providers Care Manager Residential Name Role Phone Unavailable Primary Care Provider [...] 05/13/2021 05/13/2016, 05/13/2016 COVID-19 VACCINE (3 - 2024-2 6 season) 2025 10/14/2020, 09/16/2020 RSV VACCINE (1 - 1-dose 75+ series) 09/13/2042 HEPATITIS C SCREENING Completed 05/15/2021 , 05/15/2021 [...] AM EST) HCV NON-REACTIV E NON-REACTI VE [facility] Blood 05/15/2021 8:14 AM EST 05/15/2021 8:18 AM EST us Saray Omalley NP LAB BLOOD ORDERABLES Final Resu lt Performing Organization Address City/State/[facility] Co de Phone Number [address] [address] * Outside LDL (05/13/2016) LDL - External 98 50 - 250 mg/ml us Historical Provider LAB BLOOD ORDERABLES Frances l Result from Last 3 Months or Most Recently Relevant to Health Maintenance Insurance [facility] POS EPO [facility] [place] [address] [place] [address] [place] [address] [place] [address] POS EPO [facility] [place] [address] [place] [address] POS EPO [facility] POS EPO [facility] POS EPO [facility] POS EPO Additional Source Comments The information contained in this document represents components of the legal health record. It is not the complete legal health record.[facility]
--- OUTSIDE RECORDS SUMMARY | 2025-03-20 16:21 | XMS_ITS | Encounter Summary ---
Author Organization [facility] Address [address] [place] [address] Phone Care Team Providers Care [employer] Dean Name Role Phone Alli Encarnacion MD Unavailable [phone] Cee Mercedes HOME HEALTH CARE COORDINATOR Primary Care Provider Encounter Details Date Type Department Care Team (Late st Contact Info) Description 05/29/2021 Procedure Pass [facility], Ct Scan - [address] [address] Social History Tobacco Use Types Packs/Day Years Used Date Smoking Tobacco: Every Day Cigarettes 0.5 5 Started: 08/17/2014; Last attempted to quit: 08/18/2019 Smokeless Tobacco: Never Comments:1 pack/1.5 days Alcohol Use Standard Drinks/Week [...] Answer Date Recorded Are you interested in help w ith more adult education (for example, completing high school, GED, job training, learning the [place] language, technical skills, or developing parenting skills)? No 04/25/2021 Food Answer Date Recorded Within the past [...] basis, and looking for work? No 04/25/2021 Sex and Gender Information Value Date Recorded Sex Assigned at Not on file Legal Sex Male 10:32 PM EDT Gender Identity Not on file Sexual Orientation Not on file documented as of this encounter Plan of Treatment Not on file documented as of this encounter Visit Diagnoses Not on filedocumented in this encounter Additional Health Concerns Assessment Noted Time PHQ-2 Depression Total Score: 0 12/25/19 18 1:45 PM EDT documented as of this encounter Care Teams [employer] Dean Relationship Specialty Start Date End Date Cee Mercedes CNP [address] [place] [address] PCP - General Internal Medicine 01/16/20 08/04/21 Alli Encarnacion MD [address] [place] [address] [email or web address] Insurance Assigned Provider 08/27/18 09/27/21 documented as of this encounter Additional Source Comments The information contained in this document represents components of the legal health record. It is not the complete legal health record.[facility]
== END 2025-03-20 13:37 | disposition home or self-care (01) ==
LOC: HO.HMCC 12:59
PROVIDERS: PCP Internal Medicine; Visit Provider Internal Medicine
DX: I10 Essential (primary) hypertension (principal); F22 Delusional disorders; F42.9 Obsessive-compulsive disorder, unspecified; E66.09 Other obesity due to excess calories; Z68.37 Body mass index [BMI] 37.0-37.9, adult; R79.89 Other specified abnormal findings of blood chemistry